=== PATIENT | female | born 1960 | race Caucasian/White ===

== ENCOUNTER 2016-09-06 08:00 | Inpatient (IN) | payer OTHER ==
--- NOTE | ~2016-09-06 | CR144 ---
[facility] A Service of [facility] RADIOLOGY TEXT RESULTS PATIENT: MITCHELL CARMONA LOCATION: [facility] [id number] : [birth year] UNIT #: [id number] AGE: [address]: Abdiaziz Rolle MD SEX: F ORDER DR: [id number] [facility] [address] [place], [place] [address] [id number] I MR#: [id number] Acc #: [id number] NAME: MITCHELL CARMONA : 1960 SEX: F STUDY DATE/TIME: 09/07/2016 16:02 UNIT: [facility] ROOM: [facility] STUDY DESCRIPTION: CR Hip 1 View Lt Attending Physician: Abdiaziz Rolle M.D. Ordering Physician: Abdiaziz Rolle M.D. Primary Care Physician: Vero Pagan M.D. MEDICAL IMAGING REPORT This report is preliminary unless electronic signature is present EXAM Left hip series 09/08/2015 HISTORY Postop total PACU back, postop revision of total left hip. FINDINGS AP radiograph of the left moses pelvis compared to study dated 09/06/2016. Patient has undergone revision of the left total hip replacement. There is an acetabular component now affixed with 3 screws. The acetabular component appears normally aligned and located. The femoral stem component is now located within the acetabular component. Previous dislocation has been reduced. There is air in the operative bed. Surgical skin vinod overlying the operative bed. Ice pack adjacent to the lateral soft tissues. The visualized bony pelvis is grossly intact. Visualized bowel gas pattern normal. Dictated by... John Moser M.D. THIS IS AN ELECTRONICALLY VERIFIED REPORT John Moser M.D. at 09/11/2016 4:18 PM FILOMENA/frances TD: 09/08/2016 07:43 JOB #: [id number] MEDICAL IMAGING REPORT COPY
--- NOTE | ~2016-09-06 | CR63 ---
[facility] A Service of [facility] RADIOLOGY TEXT RESULTS PATIENT: MITCHELL CARMONA LOCATION: [place] [id number] : [birth year] UNIT #: [id number] AGE: [address]: Abdiaziz Rolle MD SEX: F ORDER DR: [id number] [facility] [address] [place], [place] [address] [id number] I MR#: [id number] Acc #: [id number] NAME: MITCHELL CARMONA : 1960 SEX: F STUDY DATE/TIME: 09/06/2016 11:50 UNIT: [facility] ROOM: [facility] STUDY DESCRIPTION: CR Chest 2 View Attending Physician: Abdiaziz Rolle M.D. Ordering Physician: Abdiaziz Rolle M.D. Primary Care Physician: Vero Pagan M.D. MEDICAL IMAGING REPORT This report is preliminary unless electronic signature is present EXAM PA and lateral chest, 09/06/2016 HISTORY Congestion today. FINDINGS 2 views of the chest demonstrate mild cardiac enlargement. Pulmonary vascularity is normal. Mild linear atelectasis or scarring in the left base. No airspace infiltrates or effusions are identified. Mild elevation of the right hemidiaphragm is similar to chest x-ray 02/14/2010. Partly visualized internal fixation right humeral shaft. IMPRESSION No acute findings. Cardiac size near the upper limits of normal. Mild elevation of the right hemidiaphragm. Dictated by... Anmol Moeller M.D. THIS IS AN ELECTRONICALLY VERIFIED REPORT Anmol Moeller M.D. at 09/07/2016 2:15 PM WALLY/angélica TD: 09/07/2016 04:24 JOB #: [id number] MEDICAL IMAGING REPORT COPY
--- NOTE | ~2016-09-06 | EKG ---
PATIENT: MITCHELL CARMONA UNIT #: [id number] Ventricular Rate: 77 BPM Atrial Rate: 77 BPM P-R Interval: 192 ms QRS Duration: 76 ms Q-T Interval: 412 ms QTC Calculation(Bezet): 466 ms P [place]: 51 degrees Calculated R [place]: 25 degrees Calculated T [place]: 12 degrees Diagnosis Line: Normal sinus rhythm Diagnosis Line: Septal infarct , age undetermined Diagnosis Line: Abnormal ECG Diagnosis Line: No previous ECGs available Diagnosis Line: Confirmed by NISHI CEJA MD ([id number]) on Diagnosis Line: 09/08/2016 4:03:11 PM INTERPRETING MD: MARCIAL PALMER
--- NOTE | ~2016-09-06 | CO ---
Unit #: [id number] #: [id number] Patient: MITCHELL CARMONA [id number] [place] [id number] [facility] [place], [place] [address] [id number] I MR#: [id number] NAME: MITCHELL CARMONA ROOM: [facility] Age: 56 Sex: F Admission Date: 09/06/2016 : 1960 Attending Physician: Abdiaziz Rolle M.D. Primary Care Physician: Vero Pagan M.D. CONSULTATION REPORT DICTATING FOR [facility] Cardiology. REASON FOR CONSULTATION Cardiac clearance for left hip revision. HISTORY OF PRESENT ILLNESS This is a pleasant 56-year-old female, who appears much older than her stated age. She reports she was in her normal state of health until yesterday and reports she was at home lying in bed, changing positions, turned on her side and felt her hip pop. She reports this has happened in the past before. She presented initially to [facility] and was diagnosed with a left total hip dislocation. We were asked to see for preop surgical clearance for left total hip revision per Dr. Rolle in the a.m. The patient reports to me she does complain of intermittent episodes of substernal chest pain that occurs with activity as well as deep breathing. She reports that it relieves typically with rest. She also notes intermittent episodes of shortness of breath. She denies any chest pain at present. EKG shows normal sinus rhythm, rate of 77 beats per minute, cannot rule out prior septal infarct. QTc interval is 466 msec. No acute ischemic changes noted. Of note, the patient was admitted and seen approximately in 07/2016 at [facility] for hypertensive crisis. During that hospitalization, she did have a CAMI performed on 07/20/2016, which showed ejection fraction of 60%, moderate concentric LVH, diastolic dysfunction was noted grade 2, moderate pulmonary artery dilation, tktw-qm-lulylidh tricuspid regurgitation, calculated pulmonary systolic pressure of 62 to 67 mmHg, mean pulmonary artery pressure is 52 mmHg. These findings are consistent with severe pulmonary hypertension. I cannot see any previous ischemic workup has been done. The patient does report that she had some done quite sometime ago. At present, she is resting in bed. She is drowsy, but able to answer questions appropriately. Denies any complaints at this time other than left hip pain. PAST MEDICAL HISTORY 1. Hypertension. 2. Hyperlipidemia. 3. COPD, recently started on home O2 2 L. Unit #: [id number] #: [id number] Patient: MITCHELL CARMONA 4. Reformed tobacco abuse, was one pack a day smoker for 40 years. Reports she quit in 04/2016. 5. Reformed alcohol abuse. The patient reports she was alcoholic in the past. 6. Raynaud syndrome. 7. Lupus. 8. Scleroderma. 9. History of subdural hematoma. 10. History of coronary artery disease. We will attempt to obtain records. At present, no records are available for review. HOME MEDICATIONS Tylenol 325 mg one tablet q.4 hours p.r.n., aspirin 81 mg p.o. daily, atorvastatin 80 mg one tablet p.o. daily, bupropion 300 mg one tablet p.o. daily, cetirizine 5 mg p.o. daily, duloxetine 60 mg p.o. daily, furosemide 20 mg p.o. daily, gabapentin 300 mg one capsule b.i.d., melatonin 5 mg one tablet p.o. q.h.s., milk of magnesia p.r.n., nifedipine ER 60 mg one tablet p.o. daily, omeprazole 40 mg one capsule p.o. b.i.d. PAST SURGICAL HISTORY 1. Bilateral hip surgery. 2. Colostomy reversal. 3. Finger surgery. 4. Right arm surgery. 5. Abdominal surgery secondary to perforated diverticulum. SOCIAL HISTORY The patient states she lives with her son. She has been a one pack per day smoker for 40 years. She states she quit in 04/2016. She uses a cane at home for ambulation. She is a reformed alcoholic, last drink being a couple of years ago. FAMILY HISTORY No family history significant for coronary artery disease. ALLERGIES Morphine. REVIEW OF SYSTEMS Positive for numbness and tingling in the feet, pain in legs with ambulation or claudication. The rest was negative except for what was stated in the HPI. PHYSICAL EXAMINATION VITAL SIGNS: Temperature 98, respiratory rate 16 to 20, pulse is 100, blood pressure currently is 171/111. GENERAL: This is a pleasant female, who is much older than her stated age. HEENT: Pupils are equal and round. Head is atraumatic and normocephalic. Mucous membranes are moist. CARDIOVASCULAR: S1, S2. No murmurs, gallops, or rubs. PULMONARY: Lungs are clear. No adventitious breath sounds. No rales, no rhonchi, no wheezes. ABDOMEN: Slightly tender to palpation. Midline incision present from prior surgery. Large, obese, pannus. Positive bowel sounds. EXTREMITIES: Pulses are extremely weak. She has some amputated toes from prior. No clubbing, cyanosis, or edema. NEUROLOGIC: The patient is drowsy, but able to follow commands with ease. Unit #: [id number] #: [id number] Patient: MITCHELL CARMONA She answers questions appropriately and moves all extremities equally. DIAGNOSTIC STUDIES LABORATORY RESULTS: Currently no labs have been resulted. IMAGING STUDIES: Left hip imaging from [facility] shows displacement of the left hip. CARDIOVASCULAR STUDIES: EKG shows normal sinus rhythm. Q-waves are present in the septal leads. Cannot rule out prior septal infarct. Otherwise, no acute ischemic changes noted. QTc interval 466 msec. IMPRESSION 1. Repeating dislocation of the left hip, this was happened in the past. Unable to be popped back in. The patient awaiting total hip revision per Dr. Rolle in the a.m. 2. Hypertension. 3. Chronic obstructive pulmonary disease, recently started on oxygen. 4. Connective tissue disorders, history of lupus and scleroderma. 5. Probable peripheral artery disease. The patient reports intermittent claudication with ambulation and nonpalpable PT and DP pulses. 6. Reformed tobacco abuse, quit approximately in 04/2016. 7. Transesophageal echocardiography performed at [facility] in 07/2016, shows left ventricular ejection fraction of 60%, moderate concentric left ventricular hypertrophy, grade 2 diastolic dysfunction, moderate pulmonary artery dilation, pulmonary systolic pressures of 62 to 67 mmHg, [id number]-[id number]-[id number] tricuspid regurgitation, mean pulmonary artery pressure of 52 mmHg. Findings consistent with severe pulmonary hypertension. 8. Reformed alcohol abuse. The patient reports she was a heavy drinker until approximately one year ago. PLAN The patient has been seen and admitted. She is scheduled for left total hip revision per Dr. Rolle in the a.m. We were asked to see for preop cardiac clearance. Dr. Kumar has seen and evaluated and feels that she is at a ivb-iu-dxxmgksx risk for surgical intervention; however, she does have significant risk factors for coronary artery disease, which include hypertension, hyperlipidemia, reformed tobacco abuse, connective tissue disorders. We will plan on proceeding with ischemic workup evaluation prior to discharge. The patient will most likely need Lexiscan Cardiolite potentially on Wednesday. She will be started on nifedipine 60 mg p.o. now and daily for her blood pressure, which is currently running 170s over 111. She will also be started on metoprolol 25 mg p.o. now and b.i.d., as well as hydrochlorothiazide 25 mg p.o. daily. Please inform Dr. Rolle's office that the patient has been cleared for surgery. Dictated by... Marian Wolfe A.P.R.N. LMW/modl TD: 09/06/2016 18:01 JOB #: [id number] Unit #: [id number] #: [id number] Patient: MITCHELL CARMONA CONSULTATION REPORT X Marian Wolfe APRN X CONSULTATION REPORT
--- NOTE | ~2016-09-06 | HP ---
Unit #: [id number] #: [id number] Patient: MITCHELL CARMONA [id number] [address] [address] [id number] I MR#: [id number] NAME: MITCHELL CARMONA ROOM: [facility] Age: 56 Sex: F Admission Date: 09/06/2016 : 1960 Attending Physician: Abdiaziz Rolle M.D. Primary Care Physician: Vero Pagan M.D. HISTORY AND PHYSICAL REASON FOR ADMISSION Left total hip recurrent dislocation. HISTORY OF PRESENT ILLNESS Ms. Carmona is a pleasant 56-year-old female who presents today with history of multiple left total hip dislocations. Patient was lying in bed on the evening of September 06, 2016. She rolled over and her left hip popped out. She heard a pop. She has weakness on the left lower extremity. She is unable to bear any weight. There is no numbness but positive weakness and instability due to pain. the patient reports that this is the 12th or 13th time it has dislocated. We have talked to her several times about revision surgery but she wanted to hold off with her last dislocation. PAST MEDICAL HISTORY 1. Left total hip dislocations. 2. Hypertension. 3. Coronary artery disease. 4. GERD. 5. Lupus. 6. Scleroderma. 7. Raynaud's disease. 8. Depression. 9. Migraine. 10. Seizures. 11. Subdural hematoma. 12. Alcohol abuse. 13. COPD. 14. Chronic respiratory failure. MEDICATIONS 1. Tylenol. 2. Aspirin. 3. Atorvastatin. 4. Bupropion. 5. Cetirizine. 6. Duloxetine. 7. Furosemide. 8. Gabapentin. 9. Melatonin. 10. Milk of Magnesia. 11. Nifedipine. 12. Omeprazole. ALLERGIES Unit #: [id number] #: [id number] Patient: MITCHELL CARMONA Morphine. PAST SURGICAL HISTORY 1. Colostomy. 2. Finger surgery. 3. Right arm surgery. 4. Bilateral total hip replacements. 5. Multiple left total hip closed reductions. FAMILY HISTORY Insignificant. SOCIAL HISTORY The patient lives at home. She denies any smoking. She is a former smoker and quit in April 2016. She walks with a cane. She denies any alcohol use. She reports her last drink was over a year ago. REVIEW OF SYSTEMS Ten organ systems reviewed. The patient denies any blurry vision, congestion, sore throat, shortness of breath, chest pain, abdominal pain, urinary incontinence, numbness, tingling, skin ulcers, lesions, anxiety, depression. Positive for joint pain. PHYSICAL EXAMINATION GENERAL: No acute distress. Alert and oriented x3. VITAL SIGNS: Temperature 98.2, pulse 98, respirations 16, blood pressure 127/87. HEENT: PERRLA. Nonicteric sclerae. THORAX: Trachea midline. No thyromegaly. CARDIAC: S1, S2. No extra sounds. No murmurs. LUNGS: Clear to auscultation. No rales, rhonchi. ABDOMEN: Nondistended, nontender. Positive bowel sounds. GENITOURINARY: Deferred. MUSCULOSKELETAL: No erythema or ecchymosis. EXTREMITIES: Left lower extremity is shortened and internally rotated. NEUROLOGIC: II-XII intact. SKIN: Skin is cool and dry. PSYCHIATRIC: Good insight. Good judgment. Mood and affect are pleasant. DIAGNOSTIC STUDIES LABORATORY: White count is 13.1, hemoglobin 9.9, hematocrit 31.9, platelets 351,000. INR is 1. Sodium 135, potassium 4.3, chloride 102, bicarbonate 23, BUN 22, creatinine 1, glucose 100. IMAGING: Two views of the left hip ordered and reviewed today in the emergency room and shows a left total hip dislocation. ASSESSMENT Left total hip recurrent dislocation. PLAN I have discussed treatment options with the patient. I have recommended a left total hip revision to be done by Dr. Rolle for the patient's recurrent dislocation. Risks and benefits of the procedure were explained as well as the description of the procedure in its entirety along with any complications. Patient has decided to proceed. Will go ahead and get this scheduled, get the usual preoperative lab work and testing complete, and have the patient medically cleared for surgery. Unit #: [id number] #: [id number] Patient: MITCHELL CARMONA Dictated by Bassem Scott for Verena Camara/tata TD: 09/07/2016 11:38 JOB #: [id number] HISTORY AND PHYSICAL X Keiry Arenas X HISTORY AND PHYSICAL
--- NOTE | ~2016-09-06 | OR ---
Unit #: [id number] #: [id number] Patient: MITCHELL CARMONA [id number] [address] [place], [place] [address] [id number] I MR#: [id number] NAME: MITCHELL CARMONA ROOM: [facility] Date of Procedure: 09/07/2016 Admission Date: 09/06/2016 Surgeon: Abdiaziz Rolle M.D. : 1960 Attending Physician: Abdiaziz Rolle M.D. Primary Care Physician: Vero Pagan M.D. OPERATIVE REPORT PREOPERATIVE DIAGNOSIS Dislocated total hip with acetabular loosening and migration. POSTOPERATIVE DIAGNOSIS Dislocated total hip with acetabular loosening and migration. PROCEDURE PERFORMED Revision of left total hip, acetabulum liner and femoral head. ASSISTANTS Huang and Jagdish. ANESTHESIA General. ESTIMATED BLOOD LOSS About 150 to 200 mL. INDICATIONS FOR PROCEDURE This is a 56-year-old lady, who was admitted to the hospital over the weekend with a dislocated total hip. Her x-rays also showed that her acetabular component had disassociated from the acetabulum and then migrated proximally. She is brought to the operating room today for revision of her left hip. DESCRIPTION OF PROCEDURE The patient was brought to the holding room. She was already on IV scheduled antibiotics. These will be continued postop. The patient then was brought back to the operating room, given a general anesthetic. IV access was poor, so central line was placed by Anesthesia and after this was done, the patient was positioned in the decubitus position with the left side up. The left hip was prepped and draped in a sterile fashion. The previous skin incision was used. Subcu dissected away. The fascia split longitudinally. Clear fluid was encountered. This was cultured and we then carried out the dissection down to the hip joint at this time. The hip was already dislocated. The head was removed from the femoral component, that was a Nohemy component. Once the head had been removed, the femur was retracted anteriorly and superiorly. The cup was removed by hand. The patient then had the acetabulum exposed, scar tissue debrided, was then reamed up to a size 53 and was medialized as much as possible, as the lateral posterolateral rim of the acetabulum was slightly deficient. We then positioned a 54 mm multihole revision cup with Gription from [employer] Unit #: [id number] #: [id number] Patient: MITCHELL CARMONA in 40 degrees of abduction and 20 degrees of forward flexion. There was a fairly solid fit. The three screws were also added to the cup. They were 30, 25, and 35 mm in length and they all had excellent purchase. Trial +4, 10 degree liner was positioned and then the hip was reduced with a the Nohemy femoral head. This was a 14 mm x 36. The hip was reduced and it was stable in all directions. We then opened the real head. The real liner was impacted into the cup. The real head was applied. The hip was reduced and stability was appropriate in all directions. The patient then had the wound irrigated with Betadine and bacitracin and then the ropivacaine mixture was injected, and then the wound was closed using 0 Ethibond in the capsule. The fascia was closed with a running #2 STRATAFIX suture. Subcu was closed with 0 and 2-0 Vicryl and vinod in the skin. magistrate assistant, Marvin Encinas was present throughout the entire case. Dictated by... Verena Camara/adrian TD: 09/07/2016 21:14 JOB #: [id number] OPERATIVE REPORT X Abdiaziz Rolle MD X PROCEDURE OPERATIVE NOTE
--- NOTE | ~2016-09-06 | CR206 ---
[facility] A Service of [facility] RADIOLOGY TEXT RESULTS PATIENT: MITCHELL CARMONA LOCATION: [facility] : [birth year] UNIT #: [id number] AGE: [address]: Abdiaziz Rolle MD SEX: F ORDER DR: [id number] [facility] [address] [facility] [place], [place] [address] [id number] I MR#: [id number] Acc #: [id number] NAME: MITCHELL CARMONA : 1960 SEX: F STUDY DATE/TIME: 09/06/2016 15:30 UNIT: [facility] ROOM: [facility] STUDY DESCRIPTION: CR Pelvis 1 or 2 Views Attending Physician: Abdiaziz Rolle M.D. Ordering Physician: Abdiaziz Rolle M.D. Primary Care Physician: Vero Pagan M.D. MEDICAL IMAGING REPORT This report is preliminary unless electronic signature is present EXAM AP radiograph of the pelvis HISTORY Hip dislocation. Severe pain. Happened last night. Left hip popped out while moving in bed. Preoperative study. FINDINGS AP radiograph of pelvis is presented. Patient is status post bilateral hip arthroplasty. The visualized right hip orthopedic hardware appears normally located and aligned. There is dislocation of the left femoral stem relative to the left acetabular component of hip prosthesis. The left femoral head component is superimposed over the lower left iliac wing immediately superior to the acetabulum. I see no evidence of hardware fracture. No [place] bony fracture is seen. The lumbar spine shows mild degenerative change and mild dextroscoliosis. Visualized bowel gas pattern normal. Dictated by... John Moser M.D. THIS IS AN ELECTRONICALLY VERIFIED REPORT John Moser M.D. at 09/08/2016 5:27 PM FILOMENA/josie TD: 09/07/2016 07:52 JOB #: [id number] MEDICAL IMAGING REPORT [facility] A Service of [facility] RADIOLOGY TEXT RESULTS PATIENT: MITCHELL CARMONA LOCATION: [facility] : [birth year] UNIT #: [id number] AGE: [address]: Abdiaziz Rolle MD SEX: F ORDER DR: DIANA
--- NOTE | ~2016-09-06 | CR71 ---
[facility] A Service of [facility] RADIOLOGY TEXT RESULTS PATIENT: MITCHELL CARMONA LOCATION: [facility] [id number] : [birth year] UNIT #: [id number] AGE: [address]: Abdiaziz Rolle MD SEX: F ORDER DR: [id number] [facility] [address] [facility] [place], [place] [address] [id number] I MR#: [id number] Acc #: [id number] NAME: MITCHELL CARMONA : 1960 SEX: F STUDY DATE/TIME: 09/07/2016 16:01 UNIT[facility] ROOM: [facility] STUDY DESCRIPTION: CR Chest Single View Attending Physician: Abdiaziz Rolle M.D. Ordering Physician: Abdiaziz Rolle M.D. Primary Care Physician: Vero Pagan M.D. MEDICAL IMAGING REPORT This report is preliminary unless electronic signature is present EXAM AP radiograph chest 09/07/2016 HISTORY postop revision of total left hip. Short of air. FINDINGS AP radiograph of the chest is presented. Comparison 09/06/2016 at 11:50 hours. Right internal jugular central venous catheter terminates in superior vena cava. Stable cardiac enlargement. Tortuous descending thoracic aorta stable given obliquity. No acute appearing bony abnormality. Partial visualization of prior open reduction and internal fixation right humerus. The lungs are well inflated. Compared to yesterday's examination there is a subtle increase in central vascular prominence and linear interstitial densities which may be a reflection of mild vascular congestion and minimal interstitial edema. Band-like density left retrocardiac region favored to be atelectatic in nature. No pleural effusion or pneumothorax. No suspicious nodule. Short interval follow up to resolution of above findings recommended. Dictated by... John Moser M.D. THIS IS AN ELECTRONICALLY VERIFIED REPORT John Moser M.D. at 09/08/2016 5:22 PM [place] TD: 09/08/2016 07:26 JOB #: [id number] MEDICAL IMAGING REPORT [facility] A Service of [facility] RADIOLOGY TEXT RESULTS PATIENT: MITCHELL CARMONA LOCATION: [place] [address] : [birth year] UNIT #: [id number] AGE: [address]: Abdiaziz Rolle MD SEX: F ORDER DR: COPY
--- NOTE | ~2016-09-06 | DS ---
Unit #: [id number] #: [id number] Patient: MITCHELL CARMONA [id number] [facility] [place], [place] [address] [id number] I MR#: [id number] NAME: MITCHELL CARMONA ROOM: [facility] Age: 56 Sex: F Admission Date: 09/06/2016 : 1960 Discharge Date: 09/10/2016 Attending Physician: Abdiaziz Rolle M.D. Primary Care Physician: Vero Pagan M.D. DISCHARGE SUMMARY ADMITTING DIAGNOSIS Dislocated left total hip with loose acetabular component. DISCHARGE DIAGNOSIS Dislocated left total hip with loose acetabular component. PROCEDURES IN THE HOSPITAL Revision left total hip. HOSPITAL COURSE The patient was admitted on the above date, taken to the operating room on the where she underwent revision left total hip. Postoperatively, she has done fairly well. She is ambulating short distances with a walker. She is to be 50% weightbearing. She has been on Coumadin for DVT prophylaxis. Her INR today is 2. Her hemoglobin today is 9. The patient did require transfusion postoperatively. Her vinod are in place. She prefers to be discharged home. She will have home health through [facility], and will have [facility] drawn on Wednesday and of next week and her Coumadin dosage adjusted appropriately. Her vinod will be removed 2 weeks postop. DISCHARGE MEDICATIONS Her medications on discharge include her Coumadin 7.5 mg daily and her pain medicine. FOLLOW-UP The patient will follow up in the office in approximately 4-5 weeks. DISCHARGE INSTRUCTIONS She has been instructed in dislocation precautions. CONDITION Her condition on discharge is improved. DISPOSITION Her disposition is to home. Dictated by... Verena Camara/willis Unit #: [id number] #: [id number] Patient: MITCHELL CARMONA TD: 09/10/2016 08:17 JOB #: [id number] DISCHARGE SUMMARY X Abdiaziz Rolle MD X DISCHARGE SUMMARY
--- NOTE | ~2016-09-06 | HP ---
Unit #: [id number] #: [id number] Patient: MITCHELL CARMONA [id number] [facility]. [place], [place] [address] [id number] I MR#: [id number] NAME: MITCHELL CARMONA ROOM: [facility] Age: 56 Sex: F Admission Date: 09/06/2016 : 1960 Attending Physician: Abdiaziz Rolle M.D. Primary Care Physician: Vero Pagan M.D. HISTORY AND PHYSICAL REASON FOR CONSULTATION Clearance for revision total hip. HISTORY OF PRESENT ILLNESS The patient is a 56-year-old female with a past medical history of hypertension, coronary artery disease, GERD, lupus, scleroderma, Raynaud phenomenon, depression, migraine headaches, seizures, subdural hematoma, alcohol abuse, COPD, chronic respiratory failure who was admitted by Dr. Rolle for the above. The patient states that she was in her usual state of health until the evening prior to admission when she like dislocated her hip. She states that she rolled over in bed and her hip "popped." This has happened to her multiple times in the past. She presented to [facility] emergency department for further evaluation. Left hip x-ray showed left femoral component dislocated posteriorly superior and laterally related to the left acetabular component of the left hip prosthesis. The patient was transferred to [facility] for further evaluation. PAST MEDICAL HISTORY 1. Admission to [facility] for hip issue within the past one to two years. 2. Admission to [facility] 08/03/2010 for left total hip dislocation. 3. Hypertension. 4. 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 5. GERD. 6. Lupus. 7. Scleroderma. 8. Raynaud Phenomenon. 9. Depression. 10. Migraine headaches. 11. History of seizure. 12. History of subdural hematoma. 13. History of alcohol abuse. 14. COPD. 15. Chronic respiratory failure. The patient is on 2 L of oxygen per nasal cannula continuous. PAST SURGICAL HISTORY 1. Colostomy in reversal. 2. Finger surgery. 3. Right arm surgery. 4. Bilateral hip surgery. Unit #: [id number] #: [id number] Patient: MITCHELL CARMONA SOCIAL HISTORY The patient lives with her son. She quit smoking in 04/2016. She walks with a cane. She is a recovering alcoholic with her last drink being more than a year ago. FAMILY HISTORY Notable for her dad having "borderline" diabetes. ALLERGIES Morphine. HOME MEDICATIONS Tylenol, aspirin, atorvastatin, bupropion, cetirizine, duloxetine, furosemide, gabapentin, melatonin, milk of magnesia, nifedipine, omeprazole. REVIEW OF SYSTEMS A complete review of systems is negative except as indicated in HPI. PHYSICAL EXAMINATION VITAL SIGNS: Temperature is 98, pulse 73, respirations 16, blood pressure 171/111, oxygen saturation is 95% on 2 L. GENERAL: The patient is a female who is sleeping but wakes to voice. HEENT: The head is atraumatic. Mucous membranes are moist. NECK: Supple. Trachea is midline. CARDIOVASCULAR: Regular rate and rhythm. LUNGS: Clear to auscultation bilaterally with no increased work of breathing. ABDOMEN: Soft, nontender with bowel sounds present in all four quadrants. EXTREMITIES: The left hip is tender to palpation and has decrease range of motion secondary to pain. Sensation is intact. She does have a 2+ dorsalis pedis pulse. NEUROLOGIC: The patient is oriented x3. She follows commands. PSYCH: Mood and affect are normal. Patient is cooperative. Skin of examined areas is warm and dry. DIAGNOSTIC STUDIES IMAGING STUDIES: Left hip x-ray shows left hip prosthesis dislocation with no acute fracture. ASSESSMENT The patient is a 56-year-old female with: 1. Left total hip dislocation. Dr. Rolle plans to do surgery in the morning. The patient's revised Cantrell cardiac risk index is consistent with at least a 1% read of cardiac , nonfatal myocardial infarction, nonfatal cardiac arrest based on history of coronary artery disease. Labs are currently pending. She is also high risk from a pulmonary standpoint due to chronic respiratory failure and COPD. 2. Hypertension. 3. History of coronary artery disease. 4. GERD. 5. Lupus. 6. Scleroderma. 7. Raynaud phenomenon. 8. Depression. 9. Migraine headaches. Unit #: [id number] #: [id number] Patient: MITCHELL CARMONA 10. History of seizure. 11. History of subdural hematoma. 12. History of alcohol abuse with last drink being more than a year ago. 13. Former smoker. 14. COPD. 15. Chronic respiratory failure on 2 L of oxygen per nasal cannula continuous. PLAN I have ordered preoperative labs including CBC, comprehensive metabolic panel, INR, urinalysis. Will also check chest x-ray and EKG. I have consulted Dr. Jordan for cardiac clearance due to the patient's history of coronary artery disease. I have also consulted Dr. Johnson due to the patient's chronic respiratory failure and COPD. Thank you very much for the consultation. We will follow the patient along closely with you. Dictated by Peggy Dalton M.D. Ryan TD: 09/06/2016 12:46 JOB #: [id number] HISTORY AND PHYSICAL X Peggy Dalton MD HISTORY AND PHYSICAL
--- NOTE | ~2016-09-06 | CO ---
Unit #: [id number] #: [id number] Patient: MITCHELL CARMONA [id number] [place], [place] [address] [id number] I MR#: [id number] NAME: MITCHELL CARMONA ROOM: [facility] Age: 56 Sex: F Admission Date: 09/06/2016 : 1960 Attending Physician: Abdiaziz Rolle M.D. Primary Care Physician: Vero Pagan M.D. Consultation Date: 09/06/2016 CONSULTATION REPORT REASON FOR CONSULT Preop clearance. HISTORY OF PRESENT ILLNESS This is a pleasant 56-year-old female with a past medical history significant for hypertension, coronary artery disease, GERD, lupus and scleroderma who presented to the emergency room with left femoral fracture. The patient stated that she is chronically on oxygen. She smoked extensively for a long time but she quit a year ago. The patient noted that recently she had some upper respiratory infection that that hit her sinuses and now they are draining into her lungs. She is feeling more dyspneic and short of breath. She is coughing but no real sputum production. The patient doesn't take any inhalers at home and she doesn't see any manager quality compliance. REVIEW OF SYSTEMS Twelve point review of systems were obtained and were negative except for what was mentioned in the HPI. PAST MEDICAL HISTORY 1. Hypertension. 2. Coronary artery disease. 3. GERD. 4. Lupus. 5. Scleroderma. 6. Raynaud phenomenon. 7. Depression. 8. Seizure. 9. Subdural hematoma. 10. Alcohol abuse. 11. COPD. 12. Chronic hypoxic respiratory failure. PAST SURGICAL HISTORY 1. Colectomy. 2. Finger surgery. 3. Right arm surgery. 4. Bilateral hip surgery. SOCIAL HISTORY The patient lives with her son. She quit smoking in April 2016. She is an alcoholic and last drink was done a year ago. Unit #: [id number] #: [id number] Patient: MITCHELL CARMONA FAMILY HISTORY Diabetes. HOME MEDICATIONS 1. Aspirin. 2. Furosemide. 3. Neurontin. 4. Melatonin. 5. Nifedipine. 6. Omeprazole. REVIEW OF SYSTEMS Twelve point review of systems were obtained and were negative except for what was mentioned in the HPI. PHYSICAL EXAMINATION GENERAL: The patient isn't in acute distress. HEENT: Atraumatic, normocephalic. PERRLA, EOMI. NECK: Supple. No JVD, no lymphadenopathy. CHEST: Bilateral, diffuse crackles and wheezing. HEART: S1, S2. No murmur, gallops or rubs. ABDOMEN: Soft, nontender. Bowel sounds positive. No hepatosplenomegaly. EXTREMITIES: No edema or cyanosis. SKIN: No rashes. DIAGNOSTIC STUDIES IMAGING: Chest x-ray is noted and reviewed by me with no acute infiltrate. ASSESSMENT 1. Chronic hypoxic respiratory failure. 2. Acute exacerbation of chronic obstructive pulmonary disease. 3. Hypertension. 4. Hyperlipidemia. 5. Lupus. 6. Scleroderma. 7. Depression. PLAN 1. The patient is at moderate risk of pulmonary complication including pneumonia needing for vent support to (1) his chest pain if possible. 2. The patient will be started on IV antibiotics, IV steroids and bronchodilator. 3. Lasix as needed. 4. Patient needs aggressive pulmonary toilet so I will add incentive spirometer, physical therapy and bronchodilator. Dictated by... Inge Galdamez M.D. EA/ismael Unit #: [id number] #: [id number] Patient: MITCHELL CARMONA TD: 09/07/2016 06:53 JOB #: [id number] CONSULTATION REPORT X INGE PONCE MD CONSULTATION REPORT
--- NOTE | ~2016-09-06 | EKG ---
PATIENT: MITCHELL CARMONA UNIT #: [id number] Ventricular Rate: 55 BPM Atrial Rate: 55 BPM P-R Interval: 206 ms QRS Duration: 80 ms Q-T Interval: 470 ms QTC Calculation(Bezet): 449 ms P [place]: 31 degrees Calculated R [place]: 25 degrees Calculated T [place]: 3 degrees Diagnosis Line: Sinus bradycardia Diagnosis Line: Low voltage QRS Diagnosis Line: T wave abnormality, consider anterior ischemia Diagnosis Line: Borderline ECG Diagnosis Line: When compared with ECG of 06-SEP-2016 13:01, Diagnosis Line: (unconfirmed) Diagnosis Line: Criteria for Septal infarct are no longer Present Diagnosis Line: Nonspecific T wave abnormality, improved in Diagnosis Line: Inferior leads Diagnosis Line: Confirmed by DEX FLORES MD ([id number]) on 09/09/2016 Diagnosis Line: 7:14:42 AM INTERPRETING MD: SANDRA PALMER
[~2016-09-06 08:00] MED LIST: ASPIRIN PO; CALCIUM 500 + D1 TAB PO; CYMBALTA PO; HYDROCODONE-APA1 T51 PO; HYDROCODONE-APA1 T57 PO; IBUPROFEN PO; LASIX PO; NEURONTIN PO; NEURONTIN600 MG PO; NEURONTIN800 MG PO; NEXIUM PO; PLAQUENIL200 MG PO; PLETAL50 MG PO; PREDNISONE10 MG PO; PREDNISONE5 M1 PO; PROCARDIA XL PO; PROCARDIA10 MG PO; TOPAMAX PO; TOPAMAX50 MG PO
[2016-09-06] MEDS ORDERED: BUPROPION XL300 M1 (14:57)
[2016-09-06] MEDS ORDERED: OMEPRAZOLE40 M1 PO (14:57)
[2016-09-06] MEDS ORDERED: BUPROPION XL300 M1 PO (14:58)
[2016-09-06] MEDS ORDERED: NIFEDIPINE ER60 M1 PO (15:10)
[2016-09-06] MEDS ORDERED: ASPIRIN81 MG PO (15:11)
[2016-09-06] MEDS ORDERED: ZYRTEC5 M2 PO (15:11)
[2016-09-06] MEDS ORDERED: LASIX20 MG PO ×2 (15:12→15:13)
[2016-09-06] MEDS ORDERED: DULOXETINE HCL60 MG PO (15:12)
[2016-09-06] MEDS ORDERED: NEURONTIN300 MG PO (15:13)
[2016-09-06] MEDS ORDERED: MELATONIN5 M1 PO (15:14)
[2016-09-06] MEDS ORDERED: LIPITOR80 MG PO (15:15)
[2016-09-06] MEDS ORDERED: MILK OF MAGNESIA PO (15:16)
[2016-09-06] MEDS ORDERED: BISACODYL10 MG/SUPP PR (15:18)
[2016-09-06 19:03] LABS: URINE APPEARANCE SL CLOUDY; URINE BILIRUBIN NEG (NEG); URINE BLOOD 2+ (NEG); URINE COLOR YELLOW; URINE GLUCOSE NORM (NORM); URINE KETONE NEG (NEG); URINE LEUKOCYTE ESTERASE 3+ (NEG); URINE NITRATE NEG (NEG); URINE PROTEIN 1+ (NEG); URINE SPECIFIC GRAVITY 1.015 (1.003-1.035); URINE UROBILINOGEN NORM (NORM)
[2016-09-06 19:10] LABS: UWBCS1 AUWI INNUM (0-5)
[2016-09-06 20:03] LABS: BASOPHIL% 0.5 % (0-2.5); EOSINOPHIL# 0.2 X10e3 (0-0.7); EOSINOPHIL% 2.1 % (0.0-7.0); HEMATOCRIT 31.5 % (35.0-45.0); HEMOGLOBIN 9.4 gm/dL (12.0-16.0); LYMPHOCYTE% 10.1 % (17.0-45.0); MEAN CELL VOLUME 85.8 FL (83-96); MEAN CORPUSCULAR HEMOGLOBIN 25.7 PG (28-34); MEAN CORPUSCULAR HGB CONC 29.9 g/dL (30-36); MEAN PLATELET VOLUME 7.2 FL (6.5-11.5); MONOCYTE# 0.5 X10e3 (0-1.0); MONOCYTE% 5.5 % (3.0-12.0); NEUTROPHIL# 7.9 X10e3 (1.5-7.1); NEUTROPHIL% 81.8 % (40-75); PLATELET COUNT 275 X10e3 (140-420); RED BLOOD COUNT 3.68 X10e (3.90-5.30); RED CELL DISTRIBUTION WIDTH 21.5 % (11.0-15.5); WHITE BLOOD COUNT 9.6 X10e3 (4.0-10.5)
[2016-09-06 20:04] LABS: DIFF IND NO
[2016-09-06 20:07] LABS: PROTHROMBIN TIME (PATIENT) 10.7 SECONDS (9.6-11.5)
[2016-09-06 20:19] LABS: ALBUMIN SERUM 3.2 g/dL (3.5-5.0); ALKALINE PHOSPHATASE 274 U/L (32-92); ALT (SGPT) 26 U/L (10-40); AST (SGOT) 35 U/L (10-42); BILIRUBIN,TOTAL 0.6 mg/dL (0.2-2.0); BLOOD UREA NITROGEN 21 mg/dL (9-23); CALCIUM SERUM 8.6 mg/dL (8.4-10.2); CARBON DIOXIDE 23 mmol/L (22-31); CHLORIDE 105 mmol/L (100-111); GLOM FILT RATE Estimated ABOVE60 mL/min (>60); GLUCOSE FASTING 82 mg/dL (70-110); PROTEIN TOTAL SERUM 8.4 g/dL (6.0-8.3); SODIUM 133 mmol/L (135-145)
[2016-09-07 06:05] LABS: PARTIAL THROMBOPLASTIN TIME 26.8 SECONDS (23.5-31.3); PROTHROMBIN TIME (PATIENT) 10.7 SECONDS (9.6-11.5)
[2016-09-07 06:25] LABS: ALBUMIN SERUM 3.4 g/dL (3.5-5.0); BILIRUBIN,TOTAL 0.6 mg/dL (0.2-2.0); CALCIUM SERUM 9.3 mg/dL (8.4-10.2); CREATININE SERUM 1.1 mg/dL (0.6-1.4); POTASSIUM 4.3 mmol/L (3.5-5.1); PROTEIN TOTAL SERUM 8.8 g/dL (6.0-8.3)
[2016-09-07 07:27] LABS: BASOPHIL% 0.2 % (0-2.5); EOSINOPHIL% 0.1 % (0.0-7.0); HEMATOCRIT 31.9 % (35.0-45.0); HEMOGLOBIN 9.9 gm/dL (12.0-16.0); LYMPHOCYTE# 0.4 X10e3 (1.0-3.5); LYMPHOCYTE% 3.1 % (17.0-45.0); MEAN CELL VOLUME 83.4 FL (83-96); MEAN CORPUSCULAR HEMOGLOBIN 25.7 PG (28-34); MEAN CORPUSCULAR HGB CONC 30.9 g/dL (30-36); MEAN PLATELET VOLUME 7.5 FL (6.5-11.5); MONOCYTE# 0.1 X10e3 (0-1.0); NEUTROPHIL# 12.5 X10e3 (1.5-7.1); NEUTROPHIL% 95.6 % (40-75); PLATELET COUNT 351 X10e3 (140-420); RED BLOOD COUNT 3.83 X10e (3.90-5.30); RED CELL DISTRIBUTION WIDTH 21.2 % (11.0-15.5); WHITE BLOOD COUNT 13.1 X10e3 (4.0-10.5)
[2016-09-07 07:34] LABS: DIFF IND NO
[2016-09-07 18:45] LABS: PROTHROMBIN TIME (PATIENT) 10.9 SECONDS (9.6-11.5)
[2016-09-08 03:54] LABS: PROTHROMBIN TIME (PATIENT) 10.8 SECONDS (9.6-11.5)
[2016-09-08 03:58] LABS: HEMOGLOBIN 7.2 gm/dL (12.0-16.0)
[2016-09-08 11:48] LABS: BUN/CREATININE RATIO 26.92; CALCIUM SERUM 8.3 mg/dL (8.4-10.2); CREATININE SERUM 1.3 mg/dL (0.6-1.4); GLOM FILT RATE Estimated 45.4 mL/min (>60); MAGNESIUM 1.7 mg/dL (1.6-3.0); POTASSIUM 4.4 mmol/L (3.5-5.1)
[2016-09-09 05:49] LABS: BASOPHIL% 0.1 % (0-2.5); HEMATOCRIT 26.6 % (35.0-45.0); HEMOGLOBIN 8.7 gm/dL (12.0-16.0); LYMPHOCYTE# 0.3 X10e3 (1.0-3.5); LYMPHOCYTE% 2.1 % (17.0-45.0); MEAN CORPUSCULAR HEMOGLOBIN 27.6 PG (28-34); MEAN CORPUSCULAR HGB CONC 32.8 g/dL (30-36); MEAN PLATELET VOLUME 7.3 FL (6.5-11.5); MONOCYTE# 0.6 X10e3 (0-1.0); MONOCYTE% 4.3 % (3.0-12.0); NEUTROPHIL# 13.9 X10e3 (1.5-7.1); NEUTROPHIL% 93.5 % (40-75); PLATELET COUNT 322 X10e3 (140-420); RED BLOOD COUNT 3.16 X10e (3.90-5.30); RED CELL DISTRIBUTION WIDTH 21.1 % (11.0-15.5); WHITE BLOOD COUNT 14.9 X10e3 (4.0-10.5)
[2016-09-09 05:57] LABS: DIFF IND NO; INR 1.3; PROTHROMBIN TIME (PATIENT) 13.6 SECONDS (9.6-11.5)
[2016-09-09 06:39] LABS: BUN/CREATININE RATIO 33.33; CALCIUM SERUM 8.7 mg/dL (8.4-10.2); CREATININE SERUM 1.2 mg/dL (0.6-1.4); GLOM FILT RATE Estimated 49.8 mL/min (>60); MAGNESIUM 1.8 mg/dL (1.6-3.0); POTASSIUM 4.8 mmol/L (3.5-5.1)
[2016-09-10 03:10] LABS: HEMATOCRIT 28.8 % (35.0-45.0); MEAN CELL VOLUME 83.7 FL (83-96); MEAN CORPUSCULAR HEMOGLOBIN 26.1 PG (28-34); MEAN CORPUSCULAR HGB CONC 31.2 g/dL (30-36); MEAN PLATELET VOLUME 7.1 FL (6.5-11.5); RED BLOOD COUNT 3.44 X10e (3.90-5.30); RED CELL DISTRIBUTION WIDTH 21.2 % (11.0-15.5); WHITE BLOOD COUNT 17.5 X10e3 (4.0-10.5)
[2016-09-10 03:27] LABS: PROTHROMBIN TIME (PATIENT) 21.4 SECONDS (9.6-11.5)
[2016-09-10] MEDS ORDERED: COMBIVENT U/D3 M2 INH (15:44)
[2016-09-10] MEDS ORDERED: LOPRESSOR PO (15:52)
[2016-09-10] MEDS ORDERED: MILK OF MAGNESIA PO (15:55)
[2016-09-10] MEDS ORDERED: HYDROCHLOROTHIA25 MG PO (15:57)
[2016-09-10] MEDS ORDERED: GUAIFENESIN LA600 M1 PO (16:00)
[2016-09-10] MEDS ORDERED: LORTAB 10-3251 EACH PO (16:03)
[2016-09-10] MEDS ORDERED: KEFLEX250 M1 PO (16:05)
[2016-09-10] MEDS ORDERED: PREDNISONE PO (16:06)
[2016-09-10] MEDS ORDERED: BUPROPION XL300 MG PO (16:08)
[2016-09-10] MEDS ORDERED: COUMADIN7.5 MG PO (16:10)
== END 2016-09-10 19:37 | disposition home or self-care (01) | DRG 467 ==
LOC: C4C 08:00
PROVIDERS: Family Medicine; Nurse Practitioner; Orthopaedic Surgery; Physician Assistant
PROC: 0SPB09Z Removal of Liner from Left Hip Joint, Open Approach (ICD-10-PCS; 2016-09-07)
PROC: 0SUE09Z Supplement Left Hip Joint, Acetabular Surface with Liner, Open Approach (ICD-10-PCS; 2016-09-07)
PROC: 0SPS0JZ Removal of Synthetic Substitute from Left Hip Joint, Femoral Surface, Open Approach (ICD-10-PCS; 2016-09-07)
PROC: 0SRS0JZ Replacement of Left Hip Joint, Femoral Surface with Synthetic Substitute, Open Approach (ICD-10-PCS; principal; 2016-09-07 12:00)
PROC: 30233N1 Transfusion of Nonautologous Red Blood Cells into Peripheral Vein, Percutaneous Approach (ICD-10-PCS; 2016-09-08)
DX: T84.021A Dislocation of internal left hip prosthesis, initial encounter (principal); D62 Acute posthemorrhagic anemia; J96.11 Chronic respiratory failure with hypoxia; I27.2 Other secondary pulmonary hypertension; J44.1 Chronic obstructive pulmonary disease with (acute) exacerbation; N39.0 Urinary tract infection, site not specified; Y79.2 Prosthetic and other implants, materials and accessory orthopedic devices associated with adverse incidents; Y92.003 Bedroom of unspecified non-institutional (private) residence as the place of occurrence of the external cause; B96.4 Proteus (mirabilis) (morganii) as the cause of diseases classified elsewhere; Z87.891 Personal history of nicotine dependence; Z96.643 Presence of artificial hip joint, bilateral; Z99.81 Dependence on supplemental oxygen; M32.9 Systemic lupus erythematosus, unspecified; I25.10 Atherosclerotic heart disease of native coronary artery without angina pectoris; I10 Essential (primary) hypertension; K21.9 Gastro-esophageal reflux disease without esophagitis; F32.9 Major depressive disorder, single episode, unspecified; M34.9 Systemic sclerosis, unspecified; I73.00 Raynaud's syndrome without gangrene; E78.5 Hyperlipidemia, unspecified; I73.9 Peripheral vascular disease, unspecified; Z88.5 Allergy status to narcotic agent
CPT/HCPCS: 71010; 71020; 72170; 73501; 80048; 80053; 81003; 82947; 83735; 84484; 85014; 85018; 85025; 85027; 85610; 85730; 86850; 86870; 86885; 86900; 86901; 86905; 86922; 87040; 87070; 87075; 87086; 87088; 87186; 87205; 93005; 94640; 94760; 97110; 97116; 97163; 97530; 97535; C1713; C1776; G8978-GP; G8979-GP; J0131; J0171; J0690; J0696; J0735; J1100; J1170; J1650; J1720; J1885; J2250; J2405; J2710; J2795; J2920; J3010; P9016

== ENCOUNTER 2016-09-10 21:28 | Inpatient (IN) | payer OTHER ==
--- NOTE | ~2016-09-10 | CR72 ---
[facility] A Service of [facility] RADIOLOGY TEXT RESULTS PATIENT: MITCHELL CARMONA LOCATION: [address] : [birth year] UNIT #: [id number] AGE: [address]: NESSA GALDAMEZ MD SEX: F ORDER DR: [id number] [facility]. [place], [place] [address] [id number] I MR#: [id number] Acc #: [id number] NAME: MITCHELL CARMONA : 1960 SEX: F STUDY DATE/TIME: 09/16/2016 3:53 UNIT: [facility] ROOM: [facility] ST[facility]Y DESCRIPTION: CR Chest Single View Portable Attending Physician: Nessa Galdamez M.D. Ordering Physician: Marcelina Jonhson M.D. Primary Care Physician: Vero Pagan M.D. MEDICAL IMAGING REPORT This report is preliminary unless electronic signature is present EXAM AP portable chest Date: 09/16/2016 HISTORY Fever, cerebritis, respiratory failure. Symptoms began 09/10/2016. Found down. Left hip revision 09/10/2016. COMPARISON AP portable chest 09/15/2016. FINDINGS Retrocardiac left lower lobe atelectasis or infiltrate persists with small layering left pleural effusion. Right lung appears relatively clear with only minimal infiltrate suspected in the right base. Heart size is enlarged but stable. ET tube, NG tube and right arm approach PICC appear unchanged. No visible pneumothorax. IMPRESSION Persistent left lower lobe retrocardiac consolidation or atelectasis or small left pleural effusion. No significant change compared 09/15/2016. Dictated by... Ivania Villagomez M.D. THIS IS AN ELECTRONICALLY VERIFIED REPORT Ivania Villagomez M.D. at 09/16/2016 10:25 PM KLEVER/aaliyah TD: 09/16/2016 12:27 JOB #: [id number] MEDICAL IMAGING REPORT [facility] A Service of [facility] RADIOLOGY TEXT RESULTS PATIENT: MITCHELL CARMONA [address] [birth year] UNIT #: [id number] AGE: [address]: NESSA GALDAMEZ MD SEX: F ORDER DR: COPY
--- NOTE | ~2016-09-10 | EKG ---
PATIENT: MITCHELL CARMONA UNIT #: [id number] Ventricular Rate: 88 BPM Atrial Rate: 88 BPM P-R Interval: 216 ms QRS Duration: 90 ms Q-T Interval: 408 ms QTC Calculation(Bezet): 493 ms P [place]: 45 degrees Calculated R [place]: 48 degrees Calculated T [place]: 23 degrees Diagnosis Line: Sinus rhythm with sinus arrhythmia with 1st degree Diagnosis Line: A-V block Diagnosis Line: Low voltage QRS Diagnosis Line: Nonspecific T wave abnormality Diagnosis Line: Prolonged QT Diagnosis Line: Abnormal ECG Diagnosis Line: When compared with ECG of 10-SEP-2016 21:36, Diagnosis Line: (unconfirmed) Diagnosis Line: TX interval has increased Diagnosis Line: Nonspecific T wave abnormality, worse in Anterior Diagnosis Line: leads Diagnosis Line: Confirmed by AMMON GODINEZ MD ([id number]) on Diagnosis Line: 09/14/2016 12:03:18 AM INTERPRETING MD: HERBERT PALMER
--- NOTE | ~2016-09-10 | CT17 ---
[facility] A Service of [facility] RADIOLOGY TEXT RESULTS PATIENT: MITCHELL CARMONA LOCATION: [address] : [birth year] UNIT #: [id number] AGE: [address]: Elmer Chacon MD SEX: F ORDER DR: [id number] [facility] [address] [place], [place] [address] [id number] I MR#: [id number] Acc #: [id number] NAME: MITCHELL CARMONA : 1960 SEX: F STUDY DATE/TIME: 09/10/2016 20:07 UNIT: [facility] ROOM: [facility] STUDY DESCRIPTION: CT Angio Head Attending Physician: Cheyenne Andre M.D. Ordering Physician: Gilson Forrester D.O. Primary Care Physician: Vero Pagan M.D. MEDICAL IMAGING REPORT This report is preliminary unless electronic signature is present EXAM Head and neck CTA 09/10/2016 at 20:21 hours. INDICATIONS Syncope and left side weakness today. Stroke. History of lupus. TECHNIQUE Axial images were obtained through the head and neck following IV contrast administration. 3-D reformatted images were obtained. This CT exam was performed with one or more of the following radiation dose reduction techniques: automatic exposure control, adjustment of mA and/or kV according to patient size, and iterative reconstruction. COMPARISON Comparison made with head CT from the same day. FINDINGS There is some motion artifact on the exam. The patient's upper esophagus is distended with fluid and debris, compatible with gastroesophageal reflux. There is a small left pleural effusion. There is dilatation of the right main pulmonary artery at 3.3 cm. The left pulmonary artery is dilated to about 3 cm. Findings are compatible with pulmonary arterial hypertension. There is emphysema. There is left supraclavicular adenopathy. 1 of the lymph nodes measures about 2.0 x 1 cm. Consider nonemergent followup with chest CT. There is degenerative disease in the cervical spine. There is acute left maxillary sinusitis. There is generalized atrophy in the brain. In the neck, there is medial deviation of both common carotid arteries at the level of the larynx. There is no evidence of carotid or vertebral stenosis in the neck by NASCET criteria. No plaque disease is seen. Branching pattern from the aortic arch is normal. Vertebral arteries are STS. [facility] A Service of [facility] RADIOLOGY TEXT RESULTS PATIENT: MITCHELL CARMONA LOCATION: [address] : [birth year] UNIT #: [id number] AGE: [address]: Elmer Chacon MD SEX: F ORDER DR: codominant. Intracranially, vertebral basilar system appears normal. There is a origin right CARD GRINDER. 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 No intracranial aneurysm is seen. No vascular malformation is seen. The major dural venous sinuses are patent. IMPRESSION 1. No evidence of carotid vertebral stenosis in the neck by NASCET criteria. No plaque disease or dissection. 2. 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 There is no intracranial aneurysm or vascular malformation. No vessel cutoff is seen. There is a origin right CARD GRINDER. 3. Left maxillary sinusitis. 4. Gastroesophageal reflux. 5. Small left effusion with pulmonary emphysema. 6. Pulmonary arterial hypertension. 7. Left supraclavicular adenopathy of unknown significance. Consider nonemergent chest CT for follow up. Dictated by... Adrián Canales Jr., M.D. THIS IS AN ELECTRONICALLY VERIFIED REPORT Adrián Canales Jr., M.D. at 09/11/2016 12:37 PM SHAKIR/peter TD: 09/11/2016 08:54 JOB #: [id number] MEDICAL IMAGING REPORT COPY
--- NOTE | ~2016-09-10 | US140 ---
[facility] A Service of [facility] RADIOLOGY TEXT RESULTS PATIENT: MITCHELL CARMONA LOCATION: [facility] 332-01 : [birth year] UNIT #: [id number] AGE: [address]: Carissa Donald MD SEX: F ORDER DR: [id number] [facility] [address] [place], [place] [address] [id number] I MR#: [id number] Acc #: [id number] NAME: MITCHELL CARMONA : 1960 SEX: F STUDY DATE/TIME: 09/23/2016 13:48 UNIT: [address] ROOM: [facility] STUDY DESCRIPTION: US UE Veins Unilat or Ltd Stdy Attending Physician: Carissa Donald M.D. Ordering Physician: Wen Chacon A.P.R.N. Primary Care Physician: Vero Pagan M.D. MEDICAL IMAGING REPORT This report is preliminary unless electronic signature is present EXAM Left upper extremity venous Doppler 09/23/2016 INDICATIONS Left arm swelling for the last 2 days. Patient on a blood thinner. FINDINGS Kinney-scale, color flow, and spectral Doppler waveform analysis was performed of the left upper extremity venous system. All the venous structures demonstrate normal color flow and compressibility where applicable. No superficial or deep venous thrombosis is identified. IMPRESSION Negative left upper extremity venous Doppler. Dictated by... Adrián Canales Jr., M.D. THIS IS AN ELECTRONICALLY VERIFIED REPORT Adrián Canales Jr., M.D. at 09/24/2016 8:10 AM Ginger TD: 09/23/2016 18:19 JOB #: [id number] MEDICAL IMAGING REPORT Page 1 of 1 COPY
--- NOTE | ~2016-09-10 | EKG ---
PATIENT: MITCHELL CARMONA UNIT #: [id number] Ventricular Rate: 84 BPM Atrial Rate: 84 BPM P-R Interval: 184 ms QRS Duration: 92 ms Q-T Interval: 428 ms QTC Calculation(Bezet): 505 ms P [place]: 49 degrees Calculated R [place]: 50 degrees Calculated T [place]: 8 degrees Diagnosis Line: Normal sinus rhythm Diagnosis Line: Possible Left atrial enlargement Diagnosis Line: Prolonged QT Diagnosis Line: Abnormal ECG Diagnosis Line: No previous ECGs available Diagnosis Line: Confirmed by AMMON GODINEZ MD ([id number]) on Diagnosis Line: 09/13/2016 11:57:05 PM INTERPRETING MD: HERBERT PALMER
--- NOTE | ~2016-09-10 | CO ---
Unit #: [id number] #: [id number] Patient: MITCHELL CARMONA [id number] [facility] [address] [facility]. [place], [place] [address] [id number] I MR#: [id number] NAME: MITCHELL CARMONA ROOM: [facility] Age: 56 Sex: F Admission Date: 09/10/2016 : 1960 Attending Physician: Elmer Chacon M.D. Primary Care Physician: Vero Pagan M.D. Consultation Date: 09/11/2016 CONSULTATION REPORT PRIMARY CARE PHYSICIAN Vero Pagan M.D. REASON FOR CONSULTATION Recurrent seizures. PATIENT IDENTIFICATION This is a 56-year-old, right-handed, female, evaluated in ICU 15 at [facility]. SOURCE OF INFORMATION Obtained from the patient's family as well as medical record. HISTORY OF PRESENT ILLNESS This is a 56-year-old, right-handed, female with a past medical history of hypertension, GERD, seizures, subdural hematoma, migraines, history of bilateral hip surgery with recent left total hip revision on 09/07/2016 at this facility, for which she is on warfarin. Presented to [facility] after discharge yesterday with seizure activity. Again, she was last admitted to this facility on 09/06/2016 through 09/10/2016 for left total hip revision. She was seen in consultation by Pulmonology as well as Cardiology and was stable for discharge on 09/10/2016. She was taken out with a wheelchair to her son's car and began to complain of feeling unwell and lightheaded. Apparently, when she got in the car, she became unarousable and slumped over. Therefore, she was immediately brought back to the ER, had nausea, vomiting and was noted not to be moving her left side. She was given Narcan with some improvement, but was still not speaking and poorly responsive. Apparently, a code stroke was called; however, she was not felt to be a candidate for acute intervention as she just recently had surgery and she also had a witnessed seizure in the ER. She was given 1 g of Keppra. Apparently, she had a second seizure that was witnessed by the ER physician. Her daughter tells me that her left side has been weak in the past and is chronically weak. Her daughter attributes many of her issues to history of scleroderma, but reports that she has no prior history of seizures. She does states that she has had "spells" in the past in looking at records from [facility]. She was treated for spell secondary to hypoglycemia and presented in 07/2016 to their facility with a blood glucose of less than 20 after being found faced down in her litter box at home. The patient continues to be confused, wakes up with stimulation, but moans and is nonverbal. She moves extremities spontaneously, but does not follow commands. Her left side appears to be posturing in response to noxious stimuli. With the right arm, she has moved spontaneously, but at times has increased tone and is very difficult Unit #: [id number] #: [id number] Patient: MITCHELL CARMONA to evaluate. Again according to the family, she has had episodes in the past where she has become unresponsive since 04/2016. She apparently was taken to [facility] 04/2016 for subdural hematoma. Her daughter states that she was not treated for any seizures then and was told that the subdural hematoma was not causing any problems. Again, I have reviewed records from [facility] from July 05/2017. Please see above. They are in the chart. The daughter states that she does not have a diagnosis of seizures or epilepsy and is not on any seizure medication. Apparently, she may have had a seizure event after some sort of overdose in the past, those details are not clear. She had a head CT done in the ER without contrast on 09/10/2016 that showed generalized atrophy with no acute intracranial abnormality. It does show left maxillary sinusitis. She had a CT angiogram of the head and neck done in the ER on 09/10/2016, that shows no evidence of carotid for vertebral stenosis in the neck by NASCET criteria. No plaque disease or dissection. Intracranially, there appears to be unimpaired left anterior cerebral artery. 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 There was no intracranial aneurysm or vascular malformation. No vessel cutoff seen. There is a origin of right posterior cerebral artery. There was left maxillary sinusitis, gastroesophageal reflux, small left effusion with pulmonary emphysema, pulmonary arterial hypertension, left supraclavicular adenopathy of unknown significance. Radiology is to consider nonemergent chest CT for followup. Chest x-ray from 09/10/2016 shows mild cardiomegaly and mild pulmonary edema. PAST MEDICAL HISTORY 1. Hypertension. 2. GERD. 3. Scleroderma with previous admission to [facility] for treatment. According to the H and P from 07/2016, she was treated for non-STEMI likely type 2 from hypertension emergency scleroderma crisis versus noncompliance with medication. She was treated also for altered mental status, likely hypoglycemia versus hypertensive encephalopathy versus infectious versus iatrogenic, we thought likely secondary to hypoglycemia based upon improvement of symptoms with treatment. She was also treated for bacteremia with blood cultures from 07/16/2016 and 08/06/2016 positive for Enterococcus faecalis. Sputum culture positive for Staph aureus and Procalcitonin was 3.77 and lactic acid was 2.9 on admission and peaked at 4.1. 4. Discharge diagnosis includes hypertensive emergency felt to be secondary to scleroderma renal crisis and was resolved bacteremia due to enterococcus faecalis. Unsure of source on a blood cultures on 07/16/2016. She was seen by Infectious Disease. She was also treated for acute blood loss anemia. Please see those details. 5. Hyperlipidemia. 6. COPD. 7. Raynaud. 8. Depression. 9. Migraine headaches. 10. Previous subdural hematoma about 5 months ago, details unclear. 11. Bilateral hip surgery and the patient underwent left total hip revision on 09/07/2016 at this facility. Please see details above. 12. Colostomy with reversal after ruptured diverticulum. 13. Hand surgery. 14. Right shoulder surgery. ALLERGIES Include morphine. Unit #: [id number] #: [id number] Patient: MITCHELL CARMONA HOME MEDICATIONS Include; omeprazole, bupropion XL, nifedipine ER, aspirin, Zyrtec, Cymbalta, Lasix, Neurontin, melatonin, Lipitor, milk of magnesia, Dulcolax, Combivent, Lopressor, hydrochlorothiazide, guaifenesin, Lortab, cephalexin, prednisone, Wellbutrin XL, Warfarin. FAMILY HISTORY As per medical records from [facility], include myocardial infarction and diabetes mellitus. SOCIAL HISTORY The patient apparently lives with her son and his family. She stops smoking last fall, has a history of alcohol use, but no longer drinks. REVIEW OF SYSTEMS Unable to obtain from the patient given her mental status. PHYSICAL EXAMINATION VITAL SIGNS: Temperature 100.5, pulse 86, respirations 17, blood pressure 127/87, oxygen saturation 100%. Height 5 feet 7 inches, weight 176 pounds, BMI 27. NEUROLOGIC: The patient is arousable, but confused. She is nonverbal. She moans. She does not follow commands. She has been evaluated multiple times by myself and also by Dr. Yoder. She continues to have some focal twitching in the left. EEG is pending. She is no longer having any generalized seizure activity since witnessed in the emergency room. Exam is limited as the patient does not follow commands and is unable to contribute verbally. Cranial nerve exam, she responds to threats in the primary visual ortiz. Eyes are conjugate. Eyes are dilated 4 to 5+. Extraocular movements appeared to be intact with oculocephalic maneuver. Unable to assess sensation of face and scalp. Strength of muscles of facial expression appear intact with grimace in response and noxious stimuli. Hearing is unable to be fully assessed. Tongue, uvula, and palate are unable to be assessed. Head turning is unremarkable spontaneously. Neck is supple. Motor exam, she postures on the left in response to noxious stimuli, decerebrate. She moves the right side spontaneously, but does not follow commands. Sensory exam as discussed above. Limited. Gait and Romberg deferred. Reflexes, unable to elicit. Toes are upgoing. Coordination, unable to assess. DIAGNOSTIC STUDIES Please see above. LABORATORY RESULTS: White blood cell count 19.4, hemoglobin 8.2, hematocrit 26, platelet count 318. CPK 197. Sodium 133, potassium 4.5, chloride 96, CO2 of 27, glucose 86, BUN 28, creatinine 1.1, estimated GFR 55, calcium 8.3, AST 31, ALT 21, alkaline phosphatase 131, total protein 7, albumin 2.9, troponin 0.42. PT 13.8, INR 2.8, PTT 24.6. Arterial blood gas from this morning; pH 7.485, pCO2 of 39.6, PO2 of 66.8, bicarb 29.8, O2 saturation 92.8% on 2 L nasal cannula. Repeat troponin 0.61, repeat CPK 218. Unit #: [id number] #: [id number] Patient: MITCHELL CARMONA IMPRESSION 1. Generalized seizures with focal seizure activity, clinically at least current clinical exam is concerning for that is a possibility, questionable etiology regarding recurrent seizure activity. 2. History of scleroderma. 3. History of subdural hematoma. 4. Hypertension. 5. Chronic obstructive pulmonary disease. 6. Leukocytosis and fever, questionable related to seizure versus other etiology. She has had a recent treatment for bacteremia. Please see details above. 7. Recent hip surgery. 8. Anticoagulation secondary to recent hip surgery. PLAN The patient has been started on Dilantin, Keppra, and Vimpat. We have added Depacon. We will continue AEDs pending clinical improvement. EEG is pending. The question is what is the etiology why was her threshold lowered. We will request MRI of the brain and further workup as per admitting team and music educator team. Urinalysis pending. Blood cultures and sputum culture are pending. Blood cultures also recommended if not done. The patient has been started on antibiotics and is on Vancocin and ceftriaxone. We will follow along closely with you. The patient has been seen and evaluated by Dr. Yoder. We thank you very much for allowing us to assist in the care of this patient. Dictated by... Carmen Kline A.P.R.N. for Verena Hylton/adrian TD: 09/11/2016 19:04 JOB #: [id number] CONSULTATION REPORT X Carmen Kline APRN X CONSULTATION REPORT
--- NOTE | ~2016-09-10 | CR72 ---
[facility] A Service of [facility] & [facility] RADIOLOGY TEXT RESULTS PATIENT: MITCHELL CARMONA LOCATION: [address]15 : [birth year] UNIT #: [id number] AGE: [address]: NESSA STEWARD MD SEX: F ORDER DR: [id number] [facility] [address] [facility]. [place], [place] [address] [id number] I MR#: [id number] Acc #: [id number] NAME: MITCHELL CARMONA : 1960 SEX: F STUDY DATE/TIME: 09/14/2016 6:26 UNIT: [facility] ROOM: [facility] STUDY DESCRIPTION: CR Chest Single View Portable Attending Physician: Elmer Chacon M.D. Ordering Physician: Marcelina Johnson M.D. Primary Care Physician: Vero Pagan M.D. MEDICAL IMAGING REPORT This report is preliminary unless electronic signature is present EXAM Portable chest INDICATION Acute respiratory failure. Follow up endotracheal tube. FINDINGS Today's portable view of the chest shows the endotracheal tube has its tip 2-3 cm above the ajay. The PIC catheter has its tip in the superior vena cava. There continues to be left lower lobe atelectasis and the rest of the lungs are clear. Dictated by... Sai Michaels M.D. THIS IS AN ELECTRONICALLY VERIFIED REPORT Sai Michaels M.D. at 09/14/2016 9:51 AM SUKH/josie TD: 09/14/2016 09:14 JOB #: [id number] MEDICAL IMAGING REPORT COPY
--- NOTE | ~2016-09-10 | CR72 ---
[facility] A Service of [facility] & [facility] RADIOLOGY TEXT RESULTS PATIENT: MITCHELL CARMONA LOCATION: [address]-15 : [birth year] UNIT #: [id number] AGE: [address]: NESSA GALDAMEZ MD SEX: F ORDER DR: [id number] [facility] [address] [place], [place] [address] [id number] I MR#: [id number] Acc #: [id number] NAME: MITCHELL CARMONA : 1960 SEX: F STUDY DATE/TIME: 09/19/2016 3:39 UNIT: [facility] ROOM: [facility] STUDY DESCRIPTION: CR Chest Single View Portable Attending Physician: Nessa Galdamez M.D. Ordering Physician: Marcelina Johnson M.D. Primary Care Physician: Vero Pagan M.D. MEDICAL IMAGING REPORT This report is preliminary unless electronic signature is present EXAM AP portable chest 09/19/2016 HISTORY Respiratory failure. Follow up cardiopulmonary status. TECHNIQUE AP portable chest x-ray. FINDINGS Dense focal airspace opacity in the periphery of the left midlung today is new since 09/17/2016 and 09/16/2016. New or worsening pulmonary infiltrate is likely. Left basilar infiltrate is unchanged. Right lung remains clear. Cardiomegaly is stable. Pulmonary vascularity is normal. Right arm PICC and NG tube remain in good position. IMPRESSION 1. New focal infiltrate in the peripheral left midlung concerning for new or worsening pulmonary infiltrate. 2. Persistent infiltrate or atelectasis left lung base. STAT * RESULT Dictated by... Nickolas Dickson M.D. THIS IS AN ELECTRONICALLY VERIFIED REPORT Nickolas Dickson M.D. at 09/19/2016 6:02 AM RGW/rnr [facility] A Service of [facility] RADIOLOGY TEXT RESULTS PATIENT: MITCHELL CARMONA LOCATION: [facility]3-15 : [birth year] UNIT #: [id number] AGE: [address]: NESSA GALDAMEZ MD SEX: F ORDER DR: TD: 09/19/2016 04:52 JOB #: [id number] MEDICAL IMAGING REPORT COPY
--- NOTE | ~2016-09-10 | CO ---
Unit #: [id number] #: [id number] Patient: MITCHELL CARMONA [id number] [facility]. [place], [place] [address] [id number] I MR#: [id number] NAME: MITCHELL CARMONA ROOM: 332 Age: 56 Sex: F Admission Date: 09/10/2016 : 1960 Attending Physician: Carissa Donald M.D. Primary Care Physician: Vero Pagan M.D. Consultation Date: 09/29/2016 CONSULTATION REPORT REASON FOR CONSULTATION Anxiety, depression, agitation. HISTORY OF PRESENT ILLNESS Ms. Urias is a 56-year-old female, seen in room 332 at [facility] on 09/29/2016. The patient reports that she has been in the hospital for quite some time. The patient was admitted on 09/10/2016. The patient reports that she would like to go to [place], [place]. At this time, bilingual social worker is currently working on placement. The patient has a history of seizure. The patient initially had altered mental status, but currently having problem with mood lability, anxiety, agitation. The patient currently denied any thoughts of harming self or others or any psychotic symptom. Currently, denied any history of any substance abuse. PAST PSYCHIATRIC HISTORY Remarkable for depression and anxiety, was on Cymbalta. MEDICATION HISTORY The patient is currently on Smock, Lipitor, Lopressor, nifedipine, prednisone, Combivent, Wellbutrin, Coumadin, Neurontin, Cymbalta, Lipitor, Keflex, Lasix, melatonin, and omeprazole. MEDICAL HISTORY Remarkable for history of hypertension, gastroesophageal reflux disease, scleroderma, hyperlipidemia, COPD, Raynaud disease, depression, migraine headache, bilateral hip surgery, hand surgery, right shoulder surgery. ALLERGIES Morphine. FAMILY HISTORY AND SOCIAL HISTORY No family support. No history of any abuse. No history of any substance abuse. REVIEW OF SYSTEMS Complete review of systems is remarkable for as mentioned above. MENTAL STATUS EXAMINATION General appearance, the patient dressed casually in hospital attire, lying comfortably. Attention span and concentration, fair. Speech, rapid. Oriented in time, place, and person. Mood and affect were labile. Thought process, circumstantial. Thought content, guarded, paranoid, but denied any thoughts of harming self or others. Recent and remote memory, Unit #: [id number] #: [id number] Patient: MITCHELL CARMONA. Language, able to name object, repeat phrases. Fund of knowledge, fair. Insight and judgment, fair to slightly impaired. DIAGNOSES Psychiatric: Major depressive disorder, recurrent, severe, F33.2. Secondary diagnosis: Deferred. Medical diagnosis: Please refer to H and P. Stressors: Psychosocial stressor. ASSESSMENT/PLAN 1. Supportive psychotherapy and psychoeducation provided to the patient. 2. Educated about benefits and side effects of medication and course and prognosis of illness. 3. Advised to continue with current medications and if needed, consider resuming her medication Cymbalta as the patient was on this medication. We will continue to follow. Please feel free to call if any questions, telephone #[phone]. Dictated by... Verena Suarez/adrian TD: 09/30/2016 04:20 JOB #: [id number] CONSULTATION REPORT Page 1 of 1 X Felipe Wills MD X CONSULTATION REPORT
--- NOTE | ~2016-09-10 | CR72 ---
[facility] A Service of [facility] & [facility] RADIOLOGY TEXT RESULTS PATIENT: MITCHELL CARMONA LOCATION: [address]3-15 : [birth year] UNIT #: [id number] AGE: [address]: Elmer Chacon MD SEX: F ORDER DR: [id number] [facility] [address] [facility]. [place], [place] [address] [id number] I MR#: [id number] Acc #: [id number] NAME: MITCHELL CARMONA : 1960 SEX: F STUDY DATE/TIME: 09/10/2016 21:33 UNIT: [facility] ROOM: [facility] STUDY DESCRIPTION: CR Chest Single View Portable Attending Physician: Cheyenne Andre M.D. Ordering Physician: Gilson Forrester D.O. Primary Care Physician: Vero Pagan M.D. MEDICAL IMAGING REPORT This report is preliminary unless electronic signature is present EXAM Portable chest 2 views 09/10/2016 HISTORY Hypoxia, status post seizure today with vomiting and aspiration, cough for 3 days. FINDINGS There is mild cardiac enlargement. There are interstitial infiltrates seen diffusely throughout both lungs characteristic of mild pulmonary edema. There are no pleural effusions. No pneumothorax. IMPRESSION Mild cardiomegaly and mild pulmonary edema. Dictated by... Arron Blanco M.D. THIS IS AN ELECTRONICALLY VERIFIED REPORT Arron Blanco M.D. at 09/11/2016 2:56 PM KRT/nitin TD: 09/11/2016 08:51 JOB #: [id number] MEDICAL IMAGING REPORT COPY
--- NOTE | ~2016-09-10 | CO ---
Unit #: [id number] #: [id number] Patient: MITCHELL CARMONA [id number] [address] [address] [id number] I MR#: [id number] NAME: MITCHELL CARMONA ROOM: [facility] Age: 56 Sex: F Admission Date: 09/10/2016 : 1960 Attending Physician: Carissa Donald M.D. Primary Care Physician: Vero Pagan M.D. Consultation Date: 09/30/2016 CONSULTATION REPORT REASON FOR CONSULTATION Followup. DISCUSSION Ms. Urias is a 56-year-old female, seen on 09/30/2016 in bed 322. The patient was sleepy and drowsy, but cooperative. The patient is tolerating medication fairly well. No side effects from medication. The patient did not show any agitation or aggression. The patient's vital signs; 97.5, 61, 18, 116/80. REVIEW OF SYSTEMS Complete review of systems unremarkable. MENTAL STATUS EXAMINATION General appearance, the patient dressed in hospital attire. Attention span and concentration, fair. Speech, slow. Oriented in place. Mood and affect, sad, depressed, flat. Thought process, coherent. Thought content; guarded, but denied any thoughts of harming self or others. Recent and remote memory, poor. Language, able to name object and repeat phrases. Fund of knowledge, fair. Insight and judgment, fair to slightly impaired. DIAGNOSIS Psychiatric: Major depressive disorder, recurrent, severe, F33.2. ASSESSMENT/PLAN 1. Supportive psychotherapy and psychoeducation provided to the patient. 2. Educated about benefits and side effects of medication and course and prognosis of illness. 3. Advised to continue with current medication. If needed, consider further adjustment of medication. Dictated by... Felipe Wills M.D. GRANT/adrian TD: 10/02/2016 00:05 JOB #: [id number] Unit #: [id number] #: [id number] Patient: MITCHELL CARMONA CONSULTATION REPORT Page 1 of 1 X Felipe Wills MD CONSULTATION REPORT
--- NOTE | ~2016-09-10 | CR72 ---
[facility] A Service of [facility] & [facility] RADIOLOGY TEXT RESULTS PATIENT: MITCHELL CARMONA LOCATION: [address]15 : [birth year] UNIT #: [id number] AGE: [address]: NESSA GALDAMEZ MD SEX: F ORDER DR: [id number] [facility] [address] [facility]. [place], [place] [address] [id number] I MR#: [id number] Acc #: [id number] NAME: MITCHELL CARMONA : 1960 SEX: F STUDY DATE/TIME: 09/21/2016 6:03 [facility] STUDY DESCRIPTION: CR Chest Single View Portable Attending Physician: Nessa Galdamez M.D. Ordering Physician: Marcelina Johnson M.D. Primary Care Physician: Vero Pagan M.D. MEDICAL IMAGING REPORT This report is preliminary unless electronic signature is present EXAM Frontal chest 09/21/2016 INDICATIONS 56-year-old female with respiratory failure, cerebritis, fever, symptoms since the 10 of September, found down. History of hip revision 09/10/2016. Hypertension. COPD. TECHNIQUE Frontal chest compared with 09/19/2016 FINDINGS Right-sided PICC line unchanged. Enteric tube has been removed. The cardiac silhouette is enlarged but stable. Worsening consolidation in the midlung zone on the left along with new consolidation involving the upper lung zone on the left. Worsening opacities are also present in the left lung base and there are new perihilar interstitial and faint alveolar opacities in the perihilar and midlung zone on the right. Imaging features most characteristic of worsening multifocal pneumonia. Small left effusion. No pneumothorax. IMPRESSION 1. Removal of the enteric tube. The right-sided PICC line remains in place. 2. Worsening appearance of both lungs particularly of the left lung with imaging features most characteristic of worsening multifocal pneumonia. There is new consolidation in the mid and upper lung zone on the left. Persistent opacities in the left lung base with new opacities in the perihilar and midlung zone on the right as well. At least a small left effusion. No pneumothorax STAT * RESULT [facility] A Service of [facility] & [facility] RADIOLOGY TEXT RESULTS PATIENT: MITCHELL CARMONA LOCATION: [address] : [birth year] UNIT #: [id number] AGE: [address]: NESSA GALDAMEZ MD SEX: F ORDER DR: Dictated by... Armand Everett M.D. THIS IS AN ELECTRONICALLY VERIFIED REPORT Armand Everett M.D. at 09/21/2016 7:46 AM LUCITA/frances TD: 09/21/2016 06:46 JOB #: [id number] MEDICAL IMAGING REPORT COPY
--- NOTE | ~2016-09-10 | US139 ---
[facility] A Service of [facility] RADIOLOGY TEXT RESULTS PATIENT: MITCHELL CARMONA LOCATION: [address] : [birth year] UNIT #: [id number] AGE: [address]: NESSA GALDAMEZ MD SEX: F ORDER DR: [id number] [facility] [address] [place], [place] [address] [id number] I MR#: [id number] Acc #: [id number] NAME: MITCHELL CARMONA : 1960 SEX: F STUDY DATE/TIME: 09/16/2016 19:13 UNIT: [facility] ROOM: [facility] STUDY DESCRIPTION: US UE Veins Complete Ramirez Stdy Attending Physician: Nessa Galdamez M.D. Referring Physician: Davide Wlof M.D. Ordering Physician: Kilo Vu M.D. Primary Care Physician: Vero Pagan M.D. MEDICAL IMAGING REPORT This report is preliminary unless electronic signature is present EXAM Ultrasound venous Doppler, upper extremities, complete, bilateral. DATE OF EXAM 09/16/2016 CLINICAL HISTORY Bilateral upper extremity swelling since today, right greater than left. History of Raynaud syndrome and lupus. TECHNIQUE Real-time ultrasonography of bilateral upper extremity deep and superficial venous systems performed with 2D grayscale compression imaging, color flow Doppler imaging and waveform analysis. Technologist notes that the study is limited by the patient's inability to cooperate. She indicates that the patient kept moving throughout the examination and drawing the right arm up into her body. FINDINGS Proximal and distal basilic vein is not visualized on the right side. Evaluation of the right upper extremity shows soft tissue edema in the right lateral upper arm. Normal flow and compressibility is seen in the downstream right internal jugular vein, subclavian vein, axillary vein, deep and superficial brachial veins, proximal and distal cephalic veins. The PICC line is seen on the right side. On the left side, normal flow and compressibility is seen in the downstream left internal jugular vein, left subclavian axillary, deep and superficial brachial veins, proximal and distal cephalic veins and proximal and distal basilic veins. IMPRESSION 1. Technically limited study, in particular, the proximal and distal basilic veins not seen on the right side. 2. Nothing to suggest acute appearing deep or superficial venous STS. [facility] A Service of [facility] RADIOLOGY TEXT RESULTS PATIENT: MITCHELL CARMONA LOCATION: [address] : [birth year] UNIT #: [id number] AGE: [address]: NESSA GALDAMEZ MD SEX: F ORDER DR: thrombosis of either upper extremity venous system. 3. There is a right-sided PICC line present, and there is edema within the soft tissues right upper extremity laterally. STAT * RESULT Dictated by... Kia Adame M.D. THIS IS AN ELECTRONICALLY VERIFIED REPORT Kia Adame M.D. at 09/16/2016 8:52 PM MADALYN/nancy TD: 09/16/2016 20:32 JOB #: [id number] MEDICAL IMAGING REPORT COPY
--- NOTE | ~2016-09-10 | A ---
[facility] Nutrition Therapy DATE: 09/11/16 Patient: MITCHELL CARMONA Physician: AJ Address: [address] [facility] Room/Bed: [address], Zip: [place] [address] Admit Date: 09/10/16 Date of : [birth year] Height: 5 7 Weight: 176 80 NUTRITIONAL ASSESSMENT: REASON: 1 nutrition risk pt, NPO Pt is 56 yo female admitted for recurrent seizures PMH: HTN, GERD, HLD, COPD, scleroderma, Raynaud, depression, hip surgery (09/07/16), pulmonary HTN. hypoglycemia Anthropometrics: 5'11", 80 kg, BMI 24.6 Labs: Na+ 133, Cl- 96, BUN 28, Ca++ 8.3, Alb 2.9, GFR 55, BNP 1557 Meds: Colace, Protonix, Phenytoin (IV), KCl, Solu-medrol I/O & Bowel function: 2410/4626 Skin Integrity: Amputation: R great toe, R hand-3 fingers, L hip incision Edema: BUE (trace), trunk (generalized) Estimated Nutrition Needs: 6144-5687 kcal (25-30 kcal/kg) 96-120 grams protein (1.2-1.5 gm/kg) Assessment: Chart reviewed, events noted. Pt was discharged from hospital on 09/10/16 after total hip revision. Readmitted the same day after she became unarousable in her car. RN noted decreased response from yesterday. Pt is NPO due to this. Pt's family was in room during visit, they reported pt's ht as 5'11" and recent wt loss of unkown amount due to being in and out of the hospital. Pt has NGT, draining brown per RN report. Please see recommendations below. Dx: Inadequate energy-protein intake RT current codition AEB NPO status. Intervention: 1. Enteral nutrition vs. diet Monitoring, Evaluation and Goals: 1. Nutrition; provide >80% of estimated needs 2. Labs; WNL 3. GI; promote regular GI function Recommendations: 1. Once medically feasible, if the pt is able to take nutrition PO recommend advancing to [facility] Nutrition Therapy DATE: 09/11/16 Patient: MITCHELL CARMONA Physician: AJ Address: [address] [facility] Room/Bed: [address], Zip: [place] [address] Admit Date: 09/10/16 Date of : [birth year] Height: 5 7 Weight: 176 80 a HH diet as tolerated. If PO intake is <50% add Ensure BID. 2. If pt is unable to take nutrition PO recommend initiating enteral nutrition with Jevity 1.5 @ 20 mL/hr. Increase by 10 mL q 8 hrs as tolerated to goal of 65 mL/hr. This will provide: 2340 kcal/100 grams protein/1186 mL free H2O Pt is at moderate nutritional risk. RD will follow hospital course. Respectfully, KIM DEWEY, Snack Steward Carmen Ott RD, LD Food and Nutritional Services [facility] cc: client file
--- NOTE | ~2016-09-10 | CT72 ---
[facility] A Service of [facility] RADIOLOGY TEXT RESULTS PATIENT: MITCHELL CARMONA LOCATION: [place] [address]-15 : [birth year] UNIT #: [id number] AGE: [address]: Elmer Chacon MD SEX: F ORDER DR: [id number] [place] [id number] [facility]. [place], [place] [address] [id number] I MR#: [id number] Acc #: [id number] NAME: MITCHELL CARMONA : 1960 SEX: F STUDY DATE/TIME: 09/10/2016 20:14 UNIT: [facility] ROOM: [facility] STUDY DESCRIPTION: CT Head Wo Contrast Stroke Attending Physician: Cheyenne Andre M.D. Ordering Physician: Gilson Forrester D.O. Primary Care Physician: Vero Pagan M.D. MEDICAL IMAGING REPORT This report is preliminary unless electronic signature is present EXAM Head CT without contrast 09/10/2016 HISTORY Syncopal episode today with acute onset of weakness left side. TECHNIQUE This CT examination was performed with one or more of the following radiation dose reduction techniques: automatic exposure control, adjustment of mA and/or kV according to patient size, and iterative reconstruction. FINDINGS Multiple axial images were obtained from the skull base to vertex without intravenous contrast administration. There is generalized enlargement of the ventricles and sulci characteristic of atrophy. There is no midline shift. There is no mass or mass effect, hemorrhage or acute infarct. There is an air-fluid level in the left maxillary sinus characteristic of sinusitis. IMPRESSION 1. Generalized atrophy. No acute intracranial abnormality. 2. Left maxillary sinusitis. Dictated by... Arron Blnaco M.D. THIS IS AN ELECTRONICALLY VERIFIED REPORT Arron Blanco M.D. at 09/11/2016 2:56 PM MAHAD/josie TD: 09/11/2016 08:34 [facility] A Service of [facility] RADIOLOGY TEXT RESULTS PATIENT: MITCHELL CARMONA [id number] : [birth year] UNIT #: [id number] AGE: [address]: Elmer Chacon MD SEX: F ORDER DR: SALINAS #: [id number] MEDICAL IMAGING REPORT COPY
--- NOTE | ~2016-09-10 | HP ---
Unit #: [id number] #: [id number] Patient: MITCHELL CARMONA [id number] [facility]. [place], [place] [address] [id number] I MR#: [id number] NAME: MITCHELL CARMONA ROOM: [facility] Age: 56 Sex: F Admission Date: 09/10/2016 : 1960 Attending Physician: Cheyenne Andre M.D. Primary Care Physician: Vero Pagan M.D. HISTORY AND PHYSICAL CHIEF COMPLAINT Altered mental status, recurrent seizures. HISTORY This 56-year-old female with scleroderma associated with pulmonary hypertension and hypertension, is admitted for altered mental status. The patient was last admitted to this facility 09/06/2016 through today, which is 09/10/2016 for left total hip revision. Was seen in consultation both by pulmonary as well as by cardiology. She was being taken out with a wheelchair to her son's car. She began to complain of feeling unwell and lightheaded. When she say in the car, she became unarousable and slumped over. She was brought back immediately to the emergency department, had nausea and vomiting, was noted not to be moving her left side and had altered mental status. She was given Narcan with some improvement of her mental status but still moaning and not speaking. She then had a witnessed seizure in the ER. Was given 1 g of Keppra. I am unsure if the seizure occurred before or after Narcan. Call was made to neurology as well. Head Ct shows no acute disease. CTA of the head and neck show no cutoff or aneurysm. Patient is taking Coumadin with a therapeutic INR. While awaiting to see me in the ER, the patient had a second seizure, which was witnessed by the ER physician. She was given 2 mg of IV Ativan. She now is confused. She does awaken, say the word yes when I ask her question, and then doses off. She is moving her arms and right leg spontaneously. Her left arm is somewhat stiff. According to family, the patient has had episodes in the past where she become unresponsive. She was taken to [facility] about four or five months ago for a subdural hematoma. Although her old records list seizures in the past, family states that the patient does not have epilepsy. She did have one seizure after some sort of overdose in the past. PAST MEDICAL HISTORY 1. Hypertension. 2. GERD. 3. Scleroderma with previous admission to [facility] for hypertensive crisis. CAMI revealed an ejection fraction of 60% with diastolic dysfunction, moderate pulmonary artery dilation, mild to moderate TR, severe pulmonary hypertension with right ventricular systolic pressures of about 65 mmHg. 4. Hyperlipidemia. 5. COPD. 6. Raynaud. Unit #: [id number] #: [id number] Patient: MITCHELL CARMONA 7. Depression. 8. Migraine headaches. 9. Previous subdural hematoma about 5 months ago. 10. Bilateral hip surgery. The patient underwent left total hip revision 09/07/2016. 11. Colostomy with reversal after a ruptured diverticulum. 12. Hand surgery. 13. Right shoulder surgery. ALLERGIES Morphine. HOME MEDICATIONS [place] 10/325 q.4 p.r.n.; Zyrtec 5 mg daily; Lipitor 40 mg daily; Lopressor 25 mg b.i.d.; nifedipine XL 90 mg daily; prednisone taper; Combivent; Wellbutrin XL 300 mg daily; Coumadin 7.5 mg daily; Neurontin 300 mg b.i.d.; Cymbalta 60 mg daily; Lipitor 40 mg daily; Keflex 250 mg q.i.d. x3 more days for a urinary tract infection; Lasix 20 mg daily; HCTZ 25 mg daily; guaifenesin 600 mg b.i.d.; melatonin 3 mg q.h.s.; aspirin 81 mg daily; omeprazole 40 mg b.i.d. FAMILY HISTORY Negative for neurologic disease or seizures. SOCIAL HISTORY The patient lives with her son and his family. She stopped smoking last fall, no longer drinks alcohol. REVIEW OF SYSTEMS Impossible to obtain as patient currently is quite confused. PHYSICAL EXAMINATION GENERAL: Somnolent, confused, but arousable 56-year-old female who looks older than stated age. VITAL SIGNS: Temperature is 96 degrees, pulse 85, respirations 16, blood pressure 168/77, O2 saturation 98% on 2 L of oxygen. HEENT: Pupils are dilated bilaterally and do react. Unable to view the oropharynx. NECK: Supple without adenopathy or thyromegaly. CHEST: Reveals rhonchi. CARDIAC: Normal S1 and S2, soft systolic murmur at the left lower sternal border. ABDOMEN: Bowel sounds are diminished, nontender. No hepatosplenomegaly or masses. EXTREMITIES: Notable for sclerodactyly over the fingers and toes. Pedal pulses are somewhat diminished. No pedal edema. Patient has a left hip incision with vinod, which is clean and dry and a clean bandage over this. Skin reveals telangiectasias. NEUROLOGIC: Patient is lethargic but arousable. Her cranial nerves appear to be intact. She moves her legs and her right arm spontaneously. She keeps her left arm extended and stiff. She does arouse, says the word yes but otherwise moans. DIAGNOSTIC STUDIES ADMISSION LABS: Hematocrit is 26.9, down from 28.8 this morning. White blood count is 17.4, platelet count is 440. INR is 2.8, PTT is 26.8. SMA 12 - glucose 119, BUN 33, sodium 130, chloride 99, protein 8.8, albumin is 3.4. Alk phos is 264, has been elevated in the past as well. BNP 1600. Unit #: [id number] #: [id number] Patient: MITCHELL CARMONA ABG - pH 7.41, pCO2 37, pO2 200, O2 saturation 98.6% on 50% Ventimask. Cardiac markers are negative. IMAGING STUDIES: Chest x-ray - mild cardiomegaly, mild congestive heart failure. Head CT - atrophy. CT of the head and neck - no cutoff or aneurysm. Subclavicular shotty adenopathy noted. Patient will need a CT scan of her chest in the future if one has not been performed recently. CARDIOLOGY STUDIES: EKG - normal sinus rhythm, rate 84. ASSESSMENT 1. Two seizures after being discharged today, following hip revision. Patient does have a previous history of head injury with a subdural hematoma about four to five months ago. Also a seizure history is listed in her old records, family states that the patient does not have epilepsy. She had a seizure related to an overdose in the past. Has experienced episodes of decreased mental status, that the family has noted over the past year. 2. Altered mental status with decreased movement of the left arm. Head CT does not show an acute stroke. But obviously will get an MRI scan in the morning. 3. Scleroderma, lupus, and pulmonary hypertension. 4. COPD on home oxygen. 5. GERD. 6. Hypertension. 7. History of hypoglycemia per the family. 8. Recent left total hip revision, 09/07/2016. PLANS 1. IV Keppra will be continued, obtain EEG and MRI of the brain. Neurology consultation. 2. Change medications to an alternate route until taking p.o. 3. SCDs for DVT prophylaxis. 4. Differential Specialist to see in the morning. 5. Daily PT and INR. 6. Repeat all labs in the morning and cardiac enzymes as well. 7. Urinalysis. Critical care time spent in evaluating this patient was 40 minutes. Dictated by Cheyenne Andre M.D. AML/ts TD: 09/11/2016 05:53 JOB #: [id number] Unit #: [id number] #: [id number] Patient: MITCHELL CARMONA HISTORY AND PHYSICAL X Cheyenne Andre MD X HISTORY AND PHYSICAL
--- NOTE | ~2016-09-10 | FU ---
[facility] Nutrition Therapy DATE: 09/22/16 Patient: MITCHELL CARMONA Physician: AJ Address: [address] [facility] Room/Bed: [address], Zip: [place] [address] Admit Date: 09/10/16 Date of : [birth year] Height: 5 7 Weight: 194 88.1 NUTRITION MONITORING/FOLLOW-UP: Reason: Nutrition follow up Anthropometrics: Wt 09/22: 88.1 kg Labs: Gluc 55 BUN 36 Ca++ 8.2 Alb 2.5 Accuchecks 64-111 GFR 49.8 Meds: Lipitor, KCl, phenytoin (IV), protonix, D10%, furosemide, prednisone, colace I&O's: 2135/2379, last BM 09/22 Skin: Reviewed. No changes noted. Edema: Generalized- trunk/ hips/ upper legs Pedal/ ankle 1+ Left arm and hand 2+ Diet: Mechanical soft wiht ground meats and thin liquids Assessment: Chart reviewed, events noted. Pt has been ordered a mechanical soft diet with ground meats per BAG CHECKER recommendations. Pt is no longer receiving enteral nutrition. RN reports that the pt requires feeding assistance, and has been eating soup, pudding and applesauce mostly, and will take a few bites of each item on tray. RN also reports that there are concerns of aspiration, and they are holding any thin liquids until BAG CHECKER can re-evaluate. Pt remains disoriented per RN report, and continues to groan/ talk continuously. Pt is not appropriate for diet education at this time. RD will order Ensure pudding, and RN reports the pt prefers vanilla. Will continue to follow. Nutrition problem/ diagnosis remains with changes made to evidence. Dx: Inadequate protein-energy intake RT clinical condition AEB pt with fair PO intake reported by RN- ACTIVE Intervention: 1. BAG CHECKER 2. Mechanical soft with ground meats 3. Ensure pudding TID Monitoring, Evaluation and Goals: GOALS NOT MET 1. Oral intake; tolerate >50-75% meals and suppelements 2. Labs; WNL 3. Weight; prevent unintentional weight loss [facility] Nutrition Therapy DATE: 09/22/16 Patient: MITCHELL CARMONA Physician: AJ Address: [address] [facility] Room/Bed: [address], Zip: [place] [address] Admit Date: 09/10/16 Date of : [birth year] Height: 5 7 Weight: 194 88.1 4. Skin; prevent breakdown Recommendations: 1. Recommend BAG CHECKER evaluation due to concern for aspiration reported by RN. Advance diet per BAG CHECKER recommendaitons. 2. Ensure vanilla pudding TID with meals for supplemental nutrition. 3. Appreciate staff and family encouraging and assisting with intake of meals. 4. Obtain accurate weights, as the pt's weights vary since admission. Status: Pt is at mild-moderate nutritional risk. RD will continue to follow. Respectfully, WILLIE PULIDO RD, LD Food and Nutritional Services [facility] cc: client file
--- NOTE | ~2016-09-10 | MR17 ---
[facility] A Service of [facility] RADIOLOGY TEXT RESULTS PATIENT: MITCHELL CARMONA LOCATION: [address] : [birth year] UNIT #: [id number] AGE: [address]: NESSA GALDAMEZ MD SEX: F ORDER DR: [id number] [facility] [address] [place], [place] [address] [id number] I MR#: [id number] Acc #: [id number] NAME: MITCHELL CARMONA : 1960 SEX: F STUDY DATE/TIME: 09/11/2016 22:07 UNIT: [facility] ROOM: [facility] STUDY DESCRIPTION: MR Brain WWo Contrast Attending Physician: Nessa Galdamez M.D. Ordering Physician: Cheyenne Andre M.D. Primary Care Physician: Vero Pagan M.D. MRI CENTER REPORT This report is preliminary unless electronic signature is present. EXAM Brain MRI with and without contrast, 09/11/2016. PROCEDURE Routine brain MR with and without contrast. CLINICAL HISTORY Status post seizure while on an automobile trip. FINDINGS There is no acute intracranial hemorrhage, but the exam is markedly abnormal. There is marked abnormal signal throughout much of the right hemisphere in a watershed zone type distribution, but the findings are not typical of acute ischemia. There is some cortical restricted diffusion, but extensive white matter change in the subcortical region does not show restricted diffusion. There is sulcal effacement in the right hemisphere, but no leftward midline shift or even substantial ventricular compression. There is some left frontal and frontal opercular edema as well, but there is no hemorrhagic conversion. Some changes are seen in the right occipital cortex and left parietal and/or temporal cortex also showing atypical signal. Postcontrast images show very faint cortical enhancement in the superior right frontal lobe and the major cerebral vessels appear normally patent. There is sinus mucosal disease and even a left maxillary and right maxillary air-fluid level, but it is a nonspecific finding in an intubated patient. IMPRESSION Unusual markedly abnormal exam. There is extensive abnormal FLAIR and T2 signal throughout the right hemisphere with local mass effect including sulcal effacement, but no ventricular compression or leftward midline STS. [facility] A Service of [facility] RADIOLOGY TEXT RESULTS PATIENT: MITCHELL CARMONA LOCATION: CIC3 CICCU3-15 : [birth year] UNIT #: [id number] AGE: [address]: NESSA GALDAMEZ MD SEX: F ORDER DR: felix. There may be some faint enhancement but there is no significant hemorrhage. There is no extraaxial fluid collection, and there are some changes in the right occipital lobe and in the left frontal lobe and left temporal lobe. The findings do not suggest acute ischemia. Findings are most typical or suggestive of an acute cerebritis, and CSF sampling may be prudent. A variety of causes ARE certainly possible, certainly including herpes encephalitis though the findings are not classic. Dictated by... Francis Sweeney M.D. THIS IS AN ELECTRONICALLY VERIFIED REPORT Francis Sweeney M.D. at 09/14/2016 5:02 PM TEV/kenyatta TD: 09/14/2016 09:28 JOB #: [id number] MRI CENTER REPORT COPY
--- NOTE | ~2016-09-10 | CR72 ---
[facility] A Service of [facility] RADIOLOGY TEXT RESULTS PATIENT: MITCHELL CARMONA LOCATION: [address] : [birth year] UNIT #: [id number] AGE: [address]: NESSA GALDAMEZ MD SEX: F ORDER DR: [id number] [facility] [address] [place], [place] [address] [id number] I MR#: [id number] Acc #: [id number] NAME: MITCHELL CARMONA : 1960 SEX: F STUDY DATE/TIME: 09/15/2016 6:10 UNIT: [facility] ROOM: [facility] STUDY DESCRIPTION: CR Chest Single View Portable Attending Physician: Nessa Galdamez M.D. Ordering Physician: Marcelina Johnson M.D. Primary Care Physician: Vero Pagan M.D. MEDICAL IMAGING REPORT This report is preliminary unless electronic signature is present EXAM Portable chest 09/15 COMPARISON 09/14 HISTORY Fever, respiratory failure for 5 days. FINDINGS An AP portable view is obtained. Cardiac size is stable. Continued consolidation is seen at the left lung base. Vascular markings are normal. Endotracheal tube, nasoenteric tube and right-sided PICC line remain in good position. CONCLUSION No interim change. Continued left lower lobe consolidation. Dictated by... John Oviedo M.D. THIS IS AN ELECTRONICALLY VERIFIED REPORT John Oviedo M.D. at 09/15/2016 3:37 PM HUMBERTO/fletcher TD: 09/15/2016 12:20 JOB #: [id number] MEDICAL IMAGING REPORT COPY
--- NOTE | ~2016-09-10 | CR72 ---
[facility] A Service of [facility] RADIOLOGY TEXT RESULTS PATIENT: MITCHELL CARMONA LOCATION: [address]15 : [birth year] UNIT #: [id number] AGE: [address]: NESSA GALDAMEZ MD SEX: F ORDER DR: [id number] [facility] [address] [facility]. [place], [place] [address] [id number] I MR#: [id number] #: [id number] NAME: MITCHELL CARMONA : 1960 SEX: F STUDY DATE/TIME: 09/17/2016 5:40 UNIT: [facility] ROOM: [facility] STUDY DESCRIPTION: CR Chest Single View Portable Attending Physician: Nessa Galdamez M.D. Ordering Physician: Marcelina Johnson M.D. Primary Care Physician: Vero Pagan M.D. MEDICAL IMAGING REPORT This report is preliminary unless electronic signature is present EXAM AP portable chest, 09/17/2016 at 05:40. HISTORY Fever, cerebritis, respiratory failure. Symptoms began 09/10/2016. COMPARISON STUDIES AP portable chest, 09/16/2016. FINDINGS Persistent left lower lobe consolidation and small or trace left pleural effusion, not significantly changed. Right lung appears clear. Heart size is mildly enlarged, but stable. Endotracheal tube has been removed. Nasogastric tube and right arm-approach PICC appears unchanged. No visible pneumothorax. Surgical changes of the right humerus. IMPRESSION 1. Persistent left basilar consolidation with probable trace left pleural effusion. 2. Interval removal of the ET tube. 3. Stable mild cardiac enlargement. Dictated by... Ivania Villagomez M.D. THIS IS AN ELECTRONICALLY VERIFIED REPORT Ivania Villagomez M.D. at 09/18/2016 12:12 AM KLEVER/robina TD: 09/17/2016 12:46 JOB #: [id number] [facility] A Service of [facility] RADIOLOGY TEXT RESULTS PATIENT: MITCHELL CARMONA LOCATION: [address]15 : [birth year] UNIT #: [id number] AGE: [address]: NESSA GALDAMEZ MD SEX: F ORDER DR: MEDICAL IMAGING REPORT COPY
--- NOTE | ~2016-09-10 | CR71 ---
[facility] A Service of [facility] RADIOLOGY TEXT RESULTS PATIENT: MITCHELL CARMONA LOCATION: [facility] 332-01 : [birth year] UNIT #: [id number] AGE: [address]: Carissa Donald MD SEX: F ORDER DR: [id number] [facility] [address] [facility]. [place], [place] [address] [id number] I MR#: [id number] Acc #: [id number] NAME: MITCHELL CARMONA : 1960 SEX: F STUDY DATE/TIME: 09/22/2016 7:22 UNIT: [facility] ROOM: [facility] STUDY DESCRIPTION: CR Chest Single View Attending Physician: Carissa Donald M.D. Ordering Physician: Carissa Donald M.D. Primary Care Physician: Vero Pagan M.D. MEDICAL IMAGING REPORT This report is preliminary unless electronic signature is present EXAM Portable chest INDICATION 56-year-old female with shortness of breath, pneumonia for 12 days. COMPARISON Yesterday FINDINGS Improved appearance of the chest with decreased left lung atelectasis or infiltrate. Heart size stable. Stable PICC line. IMPRESSION Decreased left lung atelectasis or infiltrate. Dictated by... Keith Jason M.D. THIS IS AN ELECTRONICALLY VERIFIED REPORT Keith Jason M.D. at 09/23/2016 11:30 AM Renetta TD: 09/22/2016 13:25 JOB #: [id number] MEDICAL IMAGING REPORT Page 1 of 1 COPY
--- NOTE | ~2016-09-10 | CO ---
Unit #: [id number] #: [id number] Patient: MITCHELL CARMONA [id number] [address] [place], [place] [address] [id number] Martin MR#: [id number] NAME: MITCHELL CARMONA ROOM: [facility] Age: 56 Sex: F Admission Date: 09/10/2016 : 1960 Attending Physician: Elmer Chacon M.D. Primary Care Physician: Vero Pagan M.D. Consultation Date: 09/12/2016 CONSULTATION REPORT REASON FOR CONSULTATION Fever with altered mental status. HISTORY OF PRESENT ILLNESS The patient is a 56-year-old female, at this time is intubated, sedated. No family members at the bedside. All of the history is from the chart. She was brought in after being found down started having fever and leukocytosis. Cultures have been negative. She was intubated for airway protection. An MRI of the brain was done, which according to staff who got information from Dr. Yoder that it is showing cerebritis. Infectious Disease consultation was requested. It looks like she had received some doses of Rocephin. As noted above, the patient is intubated, sedated. No family members at the bedside. All of the history is from the chart. PAST MEDICAL HISTORY 1. Scleroderma, on tapering steroids. 2. Hypertension. 3. Gastroesophageal reflux disease. 4. Hyperlipidemia. 5. COPD. 6. Raynaud phenomenon. 7. Depression. 8. Migraines. 9. Subdural hematoma. 10. Bilateral hip surgery. 11. Colostomy with reversal after ruptured diverticulum. 12. Hand surgery. 13. Right shoulder surgery. SOCIAL HISTORY Not available. FAMILY HISTORY Not available. ALLERGIES Morphine, reaction unknown. CURRENT MEDICATIONS List reviewed. Her antimicrobials include acyclovir, which was started last night after I was called and amphotericin B x1 again last night after I was called. It looks like she is on Rocephin and got a dose of vancomycin. Unit #: [id number] #: [id number] Patient: MITCHELL CARMONA PHYSICAL EXAMINATION GENERAL: Intubated. VITAL SIGNS: Temperature 92.8, T-max 100.6, pulse 88, respirations 15, blood pressure 148/92. HEENT: Unremarkable. NECK: Supple. Pupils were dilated. CHEST: Clear to auscultation. HEART: Normal S1, S2. ABDOMEN: Soft and nontender. EXTREMITIES: Shows no edema. Bilateral hip wounds are clean per notes and nursing and Orthopedics. DIAGNOSTIC STUDIES IMAGING STUDIES: MRI of the brain report is pending. Chest x-ray has shown some patchy infiltrates. CT of head was negative for any acute changes. LABORATORY RESULTS: BUN 20, creatinine 1.1, total bilirubin 0.3. AST 27, ALT 19, alkaline phosphatase 130. Ammonia less than 9. Troponin 0.42, BNP 1557. WBC 23.1, hemoglobin 7.7, platelets 305, 94% neutrophils. Urinalysis had some hematuria. Cultures from blood and sputum are negative. On 09/06/2016, urine culture showed Proteus mirabilis sensitive to everything except nitrofurantoin and tetracycline. Urinalysis along with that was unremarkable for any significant pyuria. Nitrite negative. ASSESSMENT 1. Fever. 2. Altered mental status. 3. Leukocytosis. 4. Respiratory failure. 5. History of scleroderma. 6. Cerebritis per verbal report. PLAN At this time, we will cover the patient broadly for possible fungal, viral, atypical bacterial, central nervous system infection. We will get ESR, CRP, C3 and C4 serum fungal serology, serum cryptococcal antigen, CMV serology, and CMV PCR. We will start the patient on ampicillin. Continue vancomycin and Rocephin and acyclovir and also continue with amphotericin liposomal 3 mg/kg IV q.24 hours. Probably needs LP, but she is anticoagulated for the reason that I do not know and her last INR this morning was 3.1. May need to reverse coagulopathy. We will discuss with Dr. Yoder. Further recommendation depending upon the course. On further reviewing the chart and getting history from the staff, the patient had multiple seizures while she was in the emergency room and now, she is on multiple antiepileptic drugs. We will also going to put the patient on droplet isolation. I would like to thank Dr. Yoder for asking us to participate in the care of this patient. We will follow this patient along with you. Dictated by... Verena Sanders/adrian Unit #: [id number] #: [id number] Patient: MITCHELL CARMONA TD: 09/12/2016 11:36 JOB #: [id number] CONSULTATION REPORT X Festus Orellana MD CONSULTATION REPORT
--- NOTE | ~2016-09-10 | EKG ---
PATIENT: MITCHELL CARMONA UNIT #: [id number] Ventricular Rate: 83 BPM Atrial Rate: 83 BPM P-R Interval: 192 ms QRS Duration: 80 ms Q-T Interval: 398 ms QTC Calculation(Bezet): 467 ms P [place]: 51 degrees Calculated R [place]: 55 degrees Calculated T [place]: 25 degrees Diagnosis Line: Sinus rhythm with Premature atrial complexes Diagnosis Line: Low voltage QRS Diagnosis Line: Septal infarct , age undetermined Diagnosis Line: Abnormal ECG Diagnosis Line: When compared with ECG of 13-SEP-2016 06:11, Diagnosis Line: (unconfirmed) Diagnosis Line: Premature atrial complexes are now Present Diagnosis Line: VA interval has decreased Diagnosis Line: Septal infarct is now Present Diagnosis Line: Nonspecific T wave abnormality, improved in Diagnosis Line: Inferior leads Diagnosis Line: T wave inversion less evident in Anterolateral Diagnosis Line: leads Diagnosis Line: Confirmed by DEX FLORES MD ([id number]) on 09/15/2016 Diagnosis Line: 7:34:31 PM INTERPRETING MD: SANDRA PALMER
--- NOTE | ~2016-09-10 | EKG ---
PATIENT: MITCHELL CARMONA UNIT #: [id number] Ventricular Rate: 83 BPM Atrial Rate: 83 BPM P-R Interval: 228 ms QRS Duration: 86 ms Q-T Interval: 394 ms QTC Calculation(Bezet): 462 ms P [place]: 56 degrees Calculated R [place]: 46 degrees Calculated T [place]: 2 degrees Diagnosis Line: Sinus rhythm with 1st degree A-V block Diagnosis Line: Low voltage QRS Diagnosis Line: Nonspecific T wave abnormality Diagnosis Line: Prolonged QT Diagnosis Line: Abnormal ECG Diagnosis Line: When compared with ECG of 12-SEP-2016 05:51, Diagnosis Line: (unconfirmed) Diagnosis Line: No significant change was found Diagnosis Line: Confirmed by DEX FLORES MD ([id number]) on 09/15/2016 Diagnosis Line: 7:21:30 PM INTERPRETING MD: SANDRA PALMER
--- NOTE | ~2016-09-10 | CO ---
Unit #: [id number] #: [id number] Patient: MITCHELL CARMONA [id number] [address] [place], [place] [address] [id number] I MR#: [id number] NAME: MITCHELL CARMONA ROOM: [facility] Age: 56 Sex: F Admission Date: 09/10/2016 : 1960 Attending Physician: Elmer Chacon M.D. Primary Care Physician: Vero Pagan M.D. CONSULTATION REPORT REASON FOR CONSULTATION Critical care management. CHIEF COMPLAINT Altered mental status and seizure. HISTORY OF PRESENT ILLNESS Patient was discharged home after a left hip revision on September 10 and was going home and collapsed and had 2 episodes of seizure. She was given Ativan and currently very obtunded. I am seeing her at the bedside. She is unarousable. REVIEW OF SYSTEMS Unobtainable. PAST MEDICAL HISTORY 1. Hypertension. 2. Gastroesophageal reflux disease. 3. Scleroderma. 4. Hyperlipidemia. 5. COPD. 6. Raynaud. 7. Depression. 8. Migraine headaches. 9. Bilateral hip surgery. 10. Hand surgery. 11. Right shoulder surgery. ALLERGIES Morphine. MEDICATIONS [place], Lipitor, Lopressor, nifedipine, prednisone, Combivent, Wellbutrin, Coumadin, Neurontin, Cymbalta, Lipitor, Keflex, Lasix, melatonin and omeprazole. FAMILY HISTORY None as per records. SOCIAL HISTORY Ex-smoker. No alcohol. No drug abuse. PHYSICAL EXAMINATION VITAL SIGNS: Temperature 98, pulse rate 70, respirations 12, blood Unit #: [id number] #: [id number] Patient: MITCHELL CARMONA pressure 110/70. NEUROLOGIC: Sedated. CVS: S1, S2. RESPIRATORY: Bilateral air entry. Bilateral mild rhonchi. GI: Nontender. Soft. Bowel sounds positive. EXTREMITIES: Trace edema. DIAGNOSTIC STUDIES IMAGING: CT of the head showed generalized atrophy. No acute abnormality. CT angiogram of the head was also done, which showed no carotid stenosis. Left maxillary sinusitis. "Gastroesophageal reflux." Small left-sided effusion with pulmonary emphysema, pulmonary arterial hypertension. Left supraclavicular adenopathy. ASSESSMENT 1. Altered mental status. 2. Seizure disorder. 3. Recent COPD exacerbation. 4. Recent hip surgery. 5. Scleroderma. 6. Gastroesophageal reflux disease. 7. Hypertension. PLAN Continue antiepileptic as per neurology. MRI of the brain has been ordered. Continue oxygen. Continue bronchodilator. Cycle blood gas. Repeat blood gas today. GI and DVT prophylaxis. Monitor electrolytes. May need tube feeds. The patient will be closely monitored. Please see orders for detailed plan. Thank you very much for this consultation. Discussed with the family. NOTE: Total critical care time is 60 minutes in direct critical care of this patient. Dictated by... Verena Bruner/willis TD: 09/11/2016 12:23 JOB #: [id number] CONSULTATION REPORT X Marcelina Johnson MD CONSULTATION REPORT
--- NOTE | ~2016-09-10 | CO ---
Unit #: [id number] #: [id number] Patient: MITCHELL CARMONA [id number] [facility] [address] [facility]. [place], [place] [address] [id number] I MR#: [id number] NAME: MITCHELL CARMONA ROOM: 332 Age: 56 Sex: F Admission Date: 09/10/2016 : 1960 Attending Physician: Joel Walls M.D. Primary Care Physician: Vero Pagan M.D. Consultation Date: 10/07/2016 CONSULTATION REPORT REASON FOR CONSULTATION Depression. HISTORY OF PRESENT ILLNESS Ms. Mitchell Carmona is a 56-year-old female, seen as a followup in room 332 at [facility] on 10/07/2016. The patient lying comfortably in bed, made good eye contact, able to answer questions appropriately. The patient affect was brighter. She reports that she is feeling better. Decrease in depression and anxiety. Tolerating medication fairly well. No agitation. Vital signs stable. REVIEW OF SYSTEMS Complete review of systems unremarkable. MENTAL STATUS EXAMINATION General appearance, the patient dressed casually. Attention span and concentration, fair. Speech, regular rate and coherent. Oriented in time, place, and person. Mood and affect were brighter, made good eye contact. Thought process, coherent. Thought content, the patient denied any thoughts of harming self or others. Recent and remote memory, fair. Language, able to name object and repeat phrases. Fund of knowledge, fair. Insight and judgment, fair to slightly impaired. DIAGNOSIS Psychiatric: Major depressive disorder, recurrent, severe, F33.2. ASSESSMENT AND PLAN 1. Supportive psychotherapy and psychoeducation provided to the patient. 2. Educated about benefits and side effects of medication and course and prognosis of illness. 3. Advised to continue with current medication. The patient is currently on Zyprexa 5 mg at bedtime. If needed, consider further adjustment of medication. The patient is also on Cymbalta 30 mg daily. Please feel free to call if any questions, telephone #[phone]. Dictated by... Verena Suarez/adrian TD: 10/08/2016 22:43 JOB #: [id number] Unit #: [id number] #: [id number] Patient: MITCHELL CARMONA CONSULTATION REPORT Page 1 of 1 X Felipe Wills MD CONSULTATION REPORT
--- NOTE | ~2016-09-10 | CR72 ---
[facility] A Service of [facility] RADIOLOGY TEXT RESULTS PATIENT: MITCHELL CARMONA LOCATION: [facility] 332-01 : [birth year] UNIT #: [id number] AGE: [address]: Carissa Donald MD SEX: F ORDER DR: [id number] [facility] [address] [facility] [address] [place], [place] [address] [id number] I MR#: [id number] #: [id number] NAME: MITCHELL CARMONA : 1960 SEX: F STUDY DATE/TIME: 09/25/2016 9:20 UNIT: [address] ROOM: [facility] STUDY DESCRIPTION: CR Chest Single View Portable Attending Physician: Carissa Donald M.D. Ordering Physician: Carissa Donald M.D. Primary Care Physician: Vero Pagan M.D. MEDICAL IMAGING REPORT This report is preliminary unless electronic signature is present EXAM Portable chest 09/25 COMPARISON 09/22 HISTORY History supplied is shortness of breath, pneumonia, found down 15 days ago. FINDINGS An AP view is obtained. Cardiac size in the patient appears enlarged. There continues to be infiltrate and pleural fluid at the left base. There is mild passive congestion. Right-sided PICC line terminates in the SVC. CONCLUSION Continued atelectasis and pleural fluid at the left base. Overall this has improved slightly. Continued cardiomegaly with mild passive congestion. Dictated by... John Oviedo M.D. THIS IS AN ELECTRONICALLY VERIFIED REPORT John Oviedo M.D. at 09/28/2016 2:43 PM Radha TD: 09/25/2016 11:20 JOB #: [id number] MEDICAL IMAGING REPORT Page 1 of 1 COPY
--- NOTE | ~2016-09-10 | FU ---
[facility] DATE: 10/05/16 Patient: MITCHELL CARMONA Physician: AJ Address: [address] [facility] Room/Bed: [address], Zip: [place] [address] Admit Date: 09/10/16 Date of : [birth year] Height: 5 7 Weight: 176 80 NUTRITION MONITORING/FOLLOW-UP: Reason: Nutrition follow up Anthropometrics: Wt 10/05: 80 kg Labs: BUN 39 Accuchecks 80-106 GFR 51.2 Meds: Zofran, NaCl, prednisone, protonix, lipitor, colace I&O's: 1680/3802, last BM 10/05 Skin: Pressure ulcer to left elbow, no other changes noted Edema: 1+ left arm Trace- right and left ankles and feet Generalized left lip Diet: Regular diet Assessment: Chart reviewed, events noted. Pt's diet has been advanced to regular consistencies with thin liquids. RD spoke with the pt at bedside. Pt reports that she has a good appetite, consuming at least 50% of meals. Pt reports that the Ensure supplements previously ordered caused her to have diarrhea. RD discussed the importance of adequate protein-calorie intake with the pt, and she voiced understanding. Pt denied having any questions regarding nutrition at this time. Previous nutrition diagnosis resolved. See new diagnosis. Dx: Suboptimal energy intake RT recent diet advancement, wound AEB pt reported 50% intake of meals, pressure ulcer to elbow. Intervention: 1. Regular diet Monitoring, Evaluation and Goals: 1. Oral intake; tolerate >50%-75% of meals 2. Labs; WNL 3. Weight; prevent unintentional weight loss 4. Skin; promote healing Recommendations: 1. Continue regular diet as tolerated. [facility] DATE: 10/05/16 Patient: MITCHELL CARMONA Physician: AJ Address: [address] [facility] Room/Bed: [address] [place] [address], Zip: [place] [address] Admit Date: 09/10/16 Date of : [birth year] Height: 5 7 Weight: 176 80 2. Appreciate staff and family encouraging adequate protein intake as needed. Status: Pt is at mild-moderate nutritional risk. Respectfully, WILLIE PULIDO, RD, LD [facility] cc: client file
--- NOTE | ~2016-09-10 | CO ---
Unit #: [id number] #: [id number] Patient: MITCHELL CARMONA [id number] [address] [place], [place] [address] [id number] I MR#: [id number] NAME: MITCHELL CARMONA [facility]OM[facility] Age: 56 Sex: F Admission Date: 09/10/2016 : 1960 Attending Physician: Carissa Donald M.D. Primary Care Physician: Vero Pagan M.D. CONSULTATION REPORT REASON FOR CONSULTATION Anemia. HISTORY OF PRESENTING ILLNESS The patient actually initially presented on 09/10/2016 with altered mental status and recurrent seizures. She has since been worked up with Neurology and since her admission, her hemoglobin has steadily dropped to a low of 7.3 and 2 days ago, it was actually 8.2. Today, she has had multiple positive occult stools. She reports having had a colonoscopy just recently at [facility]. She is unsure if she has had an EGD, however, she does report having significant history of diverticulosis for which she had a colon resection in the past. Denies any overt blood in stool. No bright blood. However, she has been having recurrent diarrhea. C difficile has been negative on 2 separate occasions during this hospitalization. Denies any abdominal pain. Her really only complaint is the diarrhea or loose stool. Tolerating p.o. Denies any nausea or vomiting. PAST MEDICAL HISTORY Hypertension, GERD, scleroderma, hyperlipidemia, COPD, Raynaud's, depression and migraine headaches, previous subdural about 5 months ago at [place], bilateral hip surgery, colostomy with reversal for a ruptured diverticulum, hand surgery, right shoulder surgery. ALLERGIES Morphine. HOME MEDICATIONS [place], Zyrtec, Lipitor, Lopressor, nifedipine XL, prednisone taper, Combivent, Wellbutrin, Coumadin, Neurontin, Cymbalta, Lipitor, Keflex, Lasix, guaifenesin, melatonin, aspirin, and omeprazole. FAMILY HISTORY Reviewed and noncontributory. SOCIAL HISTORY The patient lives with her son. She no longer drinks or smokes. REVIEW OF SYSTEMS A complete 10-point review of systems was completed and negative except as mentioned in the HPI. PHYSICAL EXAMINATION GENERAL: The patient is a pleasant 56-year-old female, Unit #: [id number] #: [id number] Patient: MITCHELL CARMONA currently in no acute distress. VITAL SIGNS: Temperature 98.6, pulse is 52, respirations 20, blood pressure is 136/86. HEENT: PERRLA. NECK: Supple. CARDIAC: S1, S2. LUNGS: Clear to auscultation. ABDOMEN: Soft, rounded, nontender. Positive bowel sounds. NEUROLOGIC: The patient is alert, awake, and oriented. DIAGNOSTIC STUDIES LABORATORY RESULTS: Again today's hemoglobin is 8.2, hematocrit 26.2, platelets are 319, white count is 13.2. BUN and creatinine are 30 and 1.3 respectively, iron 17, TIBC is 234, ferritin is 80, transferrin is 167. Again occult stools have come back positive. ASSESSMENT AND PLAN 1. Anemia. We will attempt to obtain previous colonoscopy report from [facility]. Continue to monitor H and H. Continue PPI therapy. Transfuse as needed. We will plan esophagogastroduodenoscopy for the morning to rule out any peptic ulcer disease versus others. Further recommendations to follow scope. 2. Recurrent seizures. 3. Hypertension. 4. Chronic obstructive pulmonary disease. Thank you for this interesting consult. We will continue to follow along. Dictated by... Courtney Guillen, A.P.R.N. for Damon Perera M.D. MASON/adrian TD: 09/29/2016 04:57 JOB #: [id number] CONSULTATION REPORT Page 1 of 1 X X CONSULTATION REPORT
--- NOTE | ~2016-09-10 | CR72 ---
[facility] A Service of [facility] & [facility] RADIOLOGY TEXT RESULTS PATIENT: MITCHELL CARMONA LOCATION: [address] : [birth year] UNIT #: [id number] AGE: [address]: Elmer Chacon MD SEX: F ORDER DR: [id number] [facility] [address] [facility]. [place], [place] [address] [id number] I MR#: [id number] Acc #: [id number] NAME: MITCHELL CARMONA : 1960 SEX: F STUDY DATE/TIME: 09/13/2016 5:12 UNIT: [facility] ROOM: [facility] STUDY DESCRIPTION: CR Chest Single View Portable Attending Physician: Elmer Chacon M.D. Ordering Physician: Marcelina Johnson M.D. Primary Care Physician: Vero Pagan M.D. MEDICAL IMAGING REPORT This report is preliminary unless electronic signature is present EXAM Frontal chest 09/13/2016. INDICATIONS Shortness of air. ET tube placement. Seizures. Symptoms for 3 days. Hypertension. COMPARISON Frontal chest compared with 09/11/2016. FINDINGS ET tube tip in good position above the ajay. Right-sided PICC line is at the distal SVC level. Enteric tube tip below the diaphragm and not in the field of view. Cardiac silhouette is borderline in size and stable. There is a left-sided effusion with retrocardiac atelectasis or pneumonia. Hazy interstitial opacities in the right lung base. There is bronchovascular crowding versus mild central vascular congestion. No pneumothorax. Screw and plate fixation of the right humerus. IMPRESSION 1. Tubes and lines in satisfactory position to the extent visualized. No pneumothorax. 2. Borderline cardiac size and probable mild vascular congestion. 3. Retrocardiac atelectasis or infiltrate and superimposed left-sided effusion. Dictated by... Armand Everett M.D. THIS IS AN ELECTRONICALLY VERIFIED REPORT Armand Everett M.D. at 09/13/2016 2:02 PM [facility] A Service of [facility] RADIOLOGY TEXT RESULTS PATIENT: MITCHELL CARMONA LOCATION: [facility]3-15 : [birth year] UNIT #: [id number] AGE: [address]: Elmer Chacon MD SEX: F ORDER DR: Esther TD: 09/13/2016 13:38 JOB #: [id number] MEDICAL IMAGING REPORT COPY
--- NOTE | ~2016-09-10 | CR72 ---
[facility] A Service of [facility] & [facility] RADIOLOGY TEXT RESULTS PATIENT: MITCHELL CARMONA LOCATION: [address] : [birth year] UNIT #: [id number] AGE: [address]: Carissa Donald MD SEX: F ORDER DR: [id number] [facility] [address] [place], [place] [address] [id number] I MR#: [id number] Acc #: [id number] NAME: MITCHELL CARMONA : 1960 SEX: F STUDY DATE/TIME: 09/11/2016 14:51 UNIT: [facility] ROOM: [facility] STUDY DESCRIPTION: CR Chest Single View Portable Attending Physician: Elmer Chacon M.D. Ordering Physician: Marcelina Johnson M.D. Primary Care Physician: Vero Pagan M.D. MEDICAL IMAGING REPORT This report is preliminary unless electronic signature is present EXAM Portable chest x-ray 09/11/2016 HISTORY Post endotracheal tube placement. FINDINGS AP radiograph of the chest is presented. Comparison 09/10/[address] 02/14/2010. Endotracheal tube terminates 4.2 cm above the ajay. The nasogastric tube has an unusual course projecting over the left paramedian thorax. It projects diagonally across the trachea and left mainstem bronchus. Given the patient's mild thoracolumbar scoliosis, a mild right anterior oblique projection and the course of the esophagus on prior chest CT, I favor that the tube is within the esophagus. The side port terminates about 3 cm above the level of the diaphragm. The tip of the enteric tube is immediately beyond the level of gastroesophageal junction. For placement of sideport within xjd-rm-jfijxk stomach, the tube should be advanced about 10-15 cm and reassessed radiographically. This tube positioning was discussed with patient's primary care nurse Kimberly at time of this dictation. Primary care nurse indicates that gastric fluid-like contents are being aspirated from the tube further supporting that it is within the distal esophagus and proximal stomach. Stable cardiac enlargement. The lungs are well inflated. Patchy and linear/band-like densities in the left retrocardiac region are nonspecific and may reflect components of atelectasis and pneumonitis/developing pneumonia. No dense airspace disease, no pleural effusion or pneumothorax. There is mild underlying vascular congestion. Subtle increase in linear interstitial densities in the periphery of the lungs may be a reflection of borderline interstitial edema. No suspicious pulmonary nodule. [facility] A Service of [facility] RADIOLOGY TEXT RESULTS PATIENT: MITCHELL CARMONA LOCATION: [address] : [birth year] UNIT #: [id number] AGE: [address]: Carissa Donald MD SEX: F ORDER DR: Dictated by... John Moser M.D. THIS IS AN ELECTRONICALLY VERIFIED REPORT John Moser M.D. at 09/21/2016 2:12 PM FILOMENA/stan TD: 09/12/2016 04:23 JOB #: [id number] MEDICAL IMAGING REPORT COPY
--- NOTE | ~2016-09-10 | FU ---
[facility] Nutrition Therapy DATE: 09/18/16 Patient: MITCHELL CARMONA Physician: AJ Address: [address] [place] [address] Room/Bed: [address], Zip: [place] [address] Admit Date: 09/10/16 Date of : 64 Height: 5 7 Weight: 201 91.5 NUTRITION MONITORING/FOLLOW-UP: Reason: TF f/u Anthropometrics: HT: 5'11", Adm WT: 80 kg (176#) BMI: 24.6 WT: 91.5 kg (201#) Labs: Gluc 118, BUN 34, Ca++ 7.9, Alb 3.0 GFR 55 Meds: Versed, Lopressor, Lipitor, D5%, Mg/K, Phenytoin (IV), D10%, Colace, Solu-Medrol, Furosemide I&O's: 4161/7501, LBM 09/18 Skin: no changes Edema: L hand/arm, trunk/hips, upper legs (generalized) Estimated Nutrition Needs: 2000 - 2400 kcal (25-30 kcal/kg) 96 - 120 grams protein (1.2-1.5 g/kg) Assessment: Chart reviewed, events noted. RN reports pt is tolerating tube feeds well, running at goal rate of 65 mL/hr. Residuals ranged from 20 - 140 mL last night based on shift assessment. Per pump history, pt has recieved 94% of volume of enteral feeds over the past 24 hours. Pt was extubated 09/16. Dx: Inadequate protein-energy intake RT clinical condition AEB NPO status, need for enteral nutrition. RESOLVED -Inadequate oral intake RT clinical condition AEB enteral nutrition support, NPO status. ACTIVE Intervention: 1. Enteral nutrition Monitoring, Evaluation and Goals: 1. Enteral nutrition; provide ~80-100 estimated energy needs 2. Labs; WNL: Glu, Ca++, Alb 3. Weight; prevent unintentional weight loss Recommendations: 1. Continue Jevity 1.5 @ 65 mL/hr as tolerated. [facility] Nutrition Therapy DATE: 09/18/16 Patient: MITCHELL CARMONA Physician: AJ Address: [address] [place] [address] Room/Bed: [address], Zip: [place] [address] Admit Date: 09/10/16 Date of : 64 Height: 5 7 Weight: 201 91.5 2. Once appropriate, recommend SUSTAINMENT LOGISTICS ANALYST evaluation. Advance diet per SUSTAINMENT LOGISTICS ANALYST recommendations + HH diet restriction. 3. If diet advances and pt is consuming at least 50% of meals, discontinue enteral nutrition. Status: Pt is at moderate nutritional risk. RD will f/u per protocol. Respectfully, KIM DEWEY, Barn Boss Carmen Ott RD, LD Food and Nutritional Services [facility] cc: client file
--- NOTE | ~2016-09-10 | EE ---
Unit #: [id number] #: [id number] Patient: MITCHELL CARMONA [id number] [address] [address] [id number] I MR#: [id number] NAME: MITCHELL CARMONA : 1960 SEX: F STUDY DATE/TIME: 09/11/2016 UNIT: [facility] ROOM: [facility] STUDY DESCRIPTION: Attending Physician: Elmer Chacon M.D. Referring Physician: Cheyenne Andre M.D. Primary Care Physician: Vero Pagan M.D. NEURODIAGNOSTICS REPORT EXAM EEG. REASON FOR THE STUDY Recurrent seizures. EEG DESCRIPTION This is an inpatient, portable, digitally recorded, multimontage adult EEG with leads placed according to the International 10/20 System. Hyperventilation and photic stimulation were not done. This EEG shows mostly 5 to 7 Hz diffuse background slowing. The patient did become drowsy and later on stage 2 sleep was seen. Hyperventilation and photic stimulation was not done. Occasional muscle twitch was seen but I really did not see anything suggesting interictal discharges, focal changes, seizure or status epilepticus. IMPRESSION Abnormal EEG showing mild diffuse slowing which is indicative of encephalopathy but importantly nothing suggesting seizure or status was seen. Clinical correlation is recommended. Dictated by... Verena Hylton/tata TD: 09/12/2016 08:45 JOB #: [id number] Unit #: [id number] #: [id number] Patient: MITCHELL CARMONA NEURODIAGNOSTICS REPORT X Courtney Yoder MD NEURODIAGNOSTICS REPORT
--- NOTE | ~2016-09-10 | HP ---
Unit #: [id number] #: [id number] Patient: MITCHELL CARMONA [id number] [facility] [place], [place] [address] [id number] I MR#: [id number] NAME: MITCHELL CARMONA ROOM: [facility] Age: Sex: F Admission Date: 09/10/2016 : 1960 Attending Physician: Cheyenne Andre M.D. Primary Care Physician: Vero Pagan M.D. HISTORY AND PHYSICAL ADDENDUM Patient had a third seizure in the ER. I called Dr. Yoder and discussed the case with him. He has suggested Vimpat to be added to the Keppra and, if necessary, Cerebyx if the patient continues to have seizures. I went back and spoke with the patient's daughter. The daughter states the patient had been admitted to [facility] x2. The first time was for a subdural hematoma and she did have seizures during that admission. Also, was recently admitted to [facility] and had to be sedated with Ativan or some medication for seizures as well. Therefore, the information that the son initially gave me that the patient does not have a history of seizures sounds to be incorrect that she does have events and has been admitted to [facility] over the past year for seizures. We will be obtaining records from [facility]. She does not drink alcohol nor does she take any benzos according to daughter. Dictated by Verena Walker/china TD: 09/11/2016 06:22 JOB #: [id number] HISTORY AND PHYSICAL X Cheyenne Andre MD HISTORY AND PHYSICAL
--- NOTE | ~2016-09-10 | FU ---
[facility] Nutrition Therapy DATE: 09/29/16 Patient: MITCHELL CARMONA Physician: AJ Address: [address] [facility] Room/Bed: [address] [place] [address], Zip: [place] [address] Admit Date: 09/10/16 Date of : [birth year] Height: 5 7 Weight: 182 83 NUTRITION MONITORING/FOLLOW-UP: Reason: Nutrition follow up Anthropometrics: Ht: 5'11" Adm wt: 80 kg BMI: 24.6 Wt 09/29: 83 kg Labs: K+ 5.2 Gluc 52 BUN 30 Accuchecks 26-79 GFR 46.5 Meds: D5%, NaCl, prednisone, protonix, lipitor, colace I&O's: 960/900, last BM 09/28 Skin: Redness (not open) to sacrum/ coccyx Closed surgical incision left hip Scabs BLE/ fingers Scars/ discoloration BLE Edema: Generalized- ROBERT/ BLE/ upper legs Pedal/ ankle 1+ Diet: Mechanical chop with nectar thick liquids Assessment: Chart reviewed, events noted. Per RN report, pt was scheduled for an EGD this AM for anemia. Pt was taken to have the procedure then refused to have it done. The pt was NPO starting at midnight last night for the scope, and diet has been resumed today. RN reports that the pt has had poor intake, with only bites of her meals for the past couple of days. Pt continues to be confused, and is refusing medications per RN report. RD previously ordered the pt vanilla Ensure pudding, and will re-oder, as the order in no longer in [facility]. It seems that the pt's confusion is likely the cause of her poor intake. Of note, the pt's weights are trending up if weights in [facility] are accurate. The pt's blood sugars have been low, with accuchecks ranging from 26-79. Per RN report, the pt is not appropriate for diet education. Please see recommendations below. Dx: Inadequate protein-energy intake RT clinical condition AEB RN report of the pt having poor intake, low blood sugars- ACTIVE Intervention: 1. Diet per ASSEMBLER FOR PULLER OVER MACHINE 2. Ensure pudding TID Monitoring, Evaluation and Goals: [facility] Nutrition Therapy DATE: 09/29/16 Patient: MITCHELL CARMONA Physician: AJ Address: [address] [facility] Room/Bed: [address] [place] [address], Zip: [place] [address] Admit Date: 09/10/16 Date of : 64 Height: 5 7 Weight: 182 83 1. Oral intake; tolerate >50-75% of meals and supplements 2. Labs; WNL 3. Weight; prevent unintentional weight loss 4. Skin; prevent further breakdown, promote healing Recommendations: 1. Recommend ASSEMBLER FOR PULLER OVER MACHINE re-evaluation to determine least restrictive diet tolerated by the pt, as the pt's intake may improve with a less restrictive diet. Advance diet per ASSEMBLER FOR PULLER OVER MACHINE recommendations. 2. Ensure vanilla pudding TID with all meals for supplemental nutrition- RD will re-order. 3. If the pt's intake does not improve, may consider obtaining short-term enteral access and initiating enteral nutrition. RD will continue to follow. Status: Pt is at moderate nutritional risk. Respectfully, WILLIE PULIDO RD, LD Food and Nutritional Services [facility] cc: client file
--- NOTE | ~2016-09-10 | FU ---
[facility] Nutrition Therapy DATE: 09/15/16 Patient: MITCHELL CARMONA Physician: AJ Address: [address] [place] [address] Room/Bed: [address], Zip: [place] [address] Admit Date: 09/10/16 Date of : [birth year] Height: 5 7 Weight: 207 94 NUTRITION MONITORING/FOLLOW-UP: Reason: Nutrition follow up Anthropometrics: Ht: 5'11" Adm wt: 80 kg BMI: 24.6 Wt 09/15: 94 kg Labs: Gluc 120 Ca++ 7.7 Alb 2.7 Accuchecks 127 BNP 667 Meds: Versed, lopressor, lipitor, D5%, MgSO4, KCl, phenytoin (IV), protonix, solu-medrol, colace I&O's: 5933/2681, last BM 09/14 Skin: Reviewed. No changes noted. Edema: Generalized 1+ Estimated Nutrition Needs: 6743-3722 kcals (25-30 kcals/kg) 96-120 grams protein (1.2-1.5 grams/kg) Assessment: Chart reviewed, events noted. Pt is now intubated and sedated in the ICU. Pt is receiving enteral nutrition with Jevity 1.5 @ 40 mL/hr, which is ordered to gradually be increased to goal of 65 mL/hr. Per pump history, the pt has received 27% of goal volume over the past 24 hrs. Please see recommendaitons below. Nutrition diagnosis remains active. Dx: Inadequate protein-energy intake RT clinical condition AEB NPO status, need for enteral nutrition- ACTIVE Intervention: 1. Enteral nutrition Monitoring, Evaluation and Goals: 1. Enteral nutrition; provide >80% goal volume x 24 hrs 2. Labs; WNL 3. Weight; prevent unintentional weight loss 4. Skin; prevent breakdown Recommendations: 1. Increase Jevity 1.5 by 10 mL q 8 hrs as tolerated to goal of 65 mL/hr to provide: [facility] Nutrition Therapy DATE: 09/15/16 Patient: MITCHELL CARMONA Physician: AJ Address: [address] [facility] Room/Bed: [address], Zip: [place] [address] Admit Date: 03/09/17 Date of : 64 Height: 5 7 Weight: 158 97 7321 kcals/ 100 grams protein/ 1186 mL free H20 2. If the pt is extubated, recommend PERMIT REVIEW ASSISTANT evaluation and diet advancement per PERMIT REVIEW ASSISTANT as appropriate. Pt would benefit from heart healthy diet restriction. Status: Pt is at moderate-severe nutritional risk. RD will continue to follow. Respectfully, WILLIE PULIDO RD, LD Food and Nutritional Services [facility] cc: client file
--- NOTE | ~2016-09-10 | CR6 ---
[facility] A Service of [facility] & [facility] RADIOLOGY TEXT RESULTS PATIENT: MITCHELL CARMONA LOCATION: [address] : [birth year] UNIT #: [id number] AGE: [address]: Elmer Chacon MD SEX: F ORDER DR: [id number] [facility] [address] [facility]. [place], [place] [address] [id number] I MR#: [id number] Acc #: [id number] NAME: MITCHELL CARMONA : 1960 SEX: F STUDY DATE/TIME: 09/11/2016 17:41 UNIT: [facility] ROOM: [facility] STUDY DESCRIPTION: CR Abdomen Portable Sng View Attending Physician: Elmer Chacon M.D. Ordering Physician: Elmer Chacon M.D. Primary Care Physician: Vero Pagan M.D. MEDICAL IMAGING REPORT This report is preliminary unless electronic signature is present EXAM AP abdomen. HISTORY NG tube placement today. Fell yesterday. FINDINGS NG tube extends to the left lower quadrant, with its tip 18 cm beyond the EG junction at the level of the mid stomach. Moderate amount of stool in partly visualized colon. Exam does not include the right lateral abdomen or lower pelvis. Partly visualized left hip prosthesis. IMPRESSION NG tube tip at the level of the mid stomach in the left lower quadrant 18 cm beyond the EG junction. Dictated by... Anmol Moeller M.D. THIS IS AN ELECTRONICALLY VERIFIED REPORT Anmol Moeller M.D. at 09/12/2016 10:41 PM DFL/china TD: 09/12/2016 13:32 JOB #: [id number] MEDICAL IMAGING REPORT COPY
--- NOTE | ~2016-09-10 | TOC ---
Unit #: [id number] #: [id number] Patient: MITHCELL CARMONA [id number] [address] [place], [place] [address] [id number] I MR#: [id number] NAME: MITCHELL CARMONA ROOM: 332 Age: 56 Sex: F Admission Date: 09/10/2016 : 1960 Attending Physician: Carissa Donald M.D. Primary Care Physician: Vero Pagan M.D. TRANSFER OF CARE SUMMARY DISCHARGE DIAGNOSES 1. Acute hypoxic respiratory failure. 2. Status epilepticus. 3. Cerebritis. 4. History of scleroderma with systemic involvement. 5. History of subdural hematoma. 6. MRSA pneumonia. 7. Hypoglycemia. 8. Moderate protein malnutrition. 9. Acute nbl-VJ-jfznzsfyt myocardial infarction. 10. Anemia. Patient refused EGD. Iron-deficiency with guaiac positive. 11. Hypertension. 12. Gastroesophageal reflux disease. 13. Hyperlipidemia. 14. Chronic obstructive pulmonary disease. 15. Depression. 16. Migraine headaches. 17. Chronic obstructive pulmonary disease with exacerbation. 18. Recent hip surgery. CONSULTANTS 1. Dr. Orellana. 2. Dr. Wills. 3. Dr. Yoder. 4. Dr. Johnson. PROCEDURES None. DIAGNOSTIC STUDIES LABORATORY: Glucose 152, sodium 135, potassium 4.0, creatinine 1.0. WBC 10.4, hemoglobin 9.0, platelets 314. Blood cultures negative. Occult blood positive. C difficile negative. IMAGING: Chest x-ray shows atelectasis with mild pleural effusion. Ultrasound of the left upper extremity negative for DVT. HOSPITAL COURSE This 56-year-old was admitted on 09/10/2016 for change in mental status. 1. Change in mental status. Patient was seen by Neurology. The patient had recurrent seizures. Status epilepticus has been diagnosed. IV Keppra, IV Vimpat, Dilantin, phenytoin has been started. The patient is following with Dr. Yoder. The patient had MRI of the brain on Unit #: [id number] #: [id number] Patient: MITCHELL CARMONA 09/11/2016 which shows extensive abnormal FLAIR and T2 signal throughout the right hemisphere with local mass effect including sulcal effacement. No ventricular compression. Findings do not suggest acute ischemia. Most typical suggestive of acute cerebritis, so cerebritis has been diagnosed. The patient was started prednisone high dose. Currently, she is seizure-free but she is confused, alert and oriented times 2 only but intermittently more confused and agitated. The patient was also seen by Dr. Wills. The patient needs rehab but she cannot financially afford it. Waiting on a rehab placement. 2. MRSA pneumonia with acute respiratory failure, hypoxic. The patient completed her antibiotics. 3. Anemia with guaiac positive. The patient was seen by gastroenterology, Dr. Perera. Patient refused EGD. Current hemoglobin is stable. 4. Acute rlf-IG-kqyralwoq WI with troponin maximum elevation of 0.61. The patient was seen by Cardiology, Dr. Bledsoe. It is a type 2 vbk-JW-hmffbzgvw WI. Continue with medical management. No intervention as per Cardiology. Currently, is on aspirin and Lipitor. 5. Hypertension, well controlled. 6. Scleroderma, most likely with systemic sclerosis involving her brain according Dr. Yoder. Continue with steroids high dose for a total of 3 weeks. 7. Moderate protein malnutrition. Cow Puncher has been consulted. 8. Hypoglycemia during hospital course, replaced with glucose. Currently blood sugars are stable. 9. Discussed with son. 10. Patient needs rehab but patient could not financially afford it. We are waiting on placement for her. Dictated by... Carissa Donald M.D. LACEY/lizzie TD: 10/01/2016 21:13 JOB #: [id number] TRANSFER OF CARE SUMMARY Page 1 of 1 X Carissa Donald MD X TRANSFER OF CARE SUMMARY
--- NOTE | ~2016-09-10 | DS ---
Unit #: [id number] #: [id number] Patient: MITCHELL CARMONA [id number] [address] [place], [place] [address] [id number] I MR#: [id number] NAME: MITCHELL CARMONA ROOM: 332 Age: 56 Sex: F Admission Date: 09/10/2016 : 1960 Discharge Date: Attending Physician: Joel Walls M.D. Primary Care Physician: Vero Pagan M.D. DISCHARGE SUMMARY ADDENDUM NOTE This is an addendum to a transfer of care [facility] dictated by Dr. Carissa Donald and that job number is [id number]. HOSPITAL COURSE Patient was evaluated by Dr. Donald on 10/02/16. At the time of her dictation as above she was waiting on rehab. At that time patient required rehab as she was not in physical condition for return home. It appears that there were financial issues and that all rehab facilities had refused her for admission. The patient's IV fluids and Ativan were discontinued on that date. She has since continued to be followed by Dr. Johnson with pulmonary service, Dr. Walls, hospitalist and Dr. Diaz for infectious disease service and all of her antibiotics have been discontinued. The patient was evaluated by Marvin Encinas with the orthopedic service today. Written orders today are that she is to follow up with Dr. Rolle in two weeks and that she is to have daily dressing changes. The patient's vital signs and labs have remained stable. She was evaluated by Dr. Walls today and cleared for discharge to [facility] where she has been accepted and has a bed available today for rehab services. DIAGNOSTIC STUDIES LABORATORY: Today WBC 11.4, hemoglobin 7.6, hematocrit 24.0, platelets 206,000 and sodium 136, potassium 4.6, chloride 105, CO2 23, glucose 80, BUN 30, creatinine 1.1, calcium 8.5, Accu-Cheks stable. Meningoencephalitis comprehensive panel: Antibody not detected. The results of this report were discussed with Carmen Kline A.P.R.N. of the neurology service. CONDITION Stable. DISPOSITION [facility]. DISCHARGE MEDICATIONS 1. Combivent unit dose 3 mL inhaled q.i.d. 2. Prednisone 20 mg p.o. t.i.d. Please note the patient is to continue this medication until advised otherwise by her neurologist with whom she is established (per Cornel Powers.P.R.N.) for further evaluation and management of her neurologic condition. 3. Tylenol 650 mg p.o. q.6 h. p.r.n. temperature greater than 101 Unit #: [id number] #: [id number] Patient: MITCHELL CARMONA. 4. Lovenox 40 mg subcu daily, 5. Vimpat 100 mg p.o. q.12 h. Prescription written by Carmen Kline, Cornel.P.R.N., #60, no refills. 6. Cymbalta 30 mg p.o. daily. 7. Vistaril 25 mg p.o. t.i.d. p.r.n. anxiety. 8. Nicotine transdermal patch 14 mg q.a.m. 9. Bystolic 10 mg p.o. b.i.d. Hold for systolic blood pressure less than 100 mmHg or heart rate less than 60 per minute. 10. Norvasc 10 mg p.o. daily. 11. Cardizem 60 mg p.o. q.6 h. 12. Bisacodyl suppository 10 mg p.r.n. daily for constipation. 13. Colace 100 mg p.o. daily. 14. Milk of magnesia 30 mL p.o. q.6 h. p.r.n. for constipation. 15. Lipitor 20 mg p.o. daily. 16. Dilantin capsules 300 mg p.o. daily. 17. Catapres 0.1 mg p.o. daily. Hold for systolic blood pressure less than 100. 18. Hydralazine 50 mg p.o. t.i.d. 19. Melatonin 5 mg p.o. q.p.m. 20. Aspirin 81 mg p.o. daily. 21. Hydrocodone and APAP 5/325 mg tab one p.o. t.i.d. p.r.n. moderate pain. Prescription written by Dr. Chacon, #15, no refills. 22. Protonix 40 mg p.o. b.i.d. 23. Zyprexa 5 mg p.o. q.h.s. 24. O2 at 2 L per minute per nasal cannula continuously (patient wears this at home). DIET Regular with encouragement for adequate protein intake as needed. Speech Therapy recommendations: Thin liquids, regular consistency diet. Upright for all oral intake. No straws. Aspiration precautions and any other dietary restrictions as ordered. DISCHARGE DIAGNOSES 19. Pressure ulcer left elbow. WOUND CARE Recommendation for total care support bed and Mepilex dressing to left elbow daily. This patient's transfer and discharge has been discussed with Loraine, the acute care surgeon, as well as Dr. Walls. Dictated by... Avril Zhao A.P.R.N. for Verena Maravilla/mathew TD: 10/07/2016 15:25 JOB #: [id number] Unit #: [id number] #: [id number] Patient: MITCHELL CARMONA DISCHARGE SUMMARY Page 1 of 1 X Avril Zhao APRN DISCHARGE SUMMARY
--- NOTE | ~2016-09-10 | CR206 ---
[facility] A Service of [facility] & [facility] RADIOLOGY TEXT RESULTS PATIENT: MITCHELL CARMONA LOCATION: [address] : [birth year] UNIT #: [id number] AGE: [address]: Elmer Chacon MD SEX: F ORDER DR: [id number] [facility] [address] [place], [place] [address] [id number] MR#: [id number] #: [id number] NAME: MITCHELL CARMONA : 1960 SEX: F STUDY DATE/TIME: 09/11/2016 17:43 UNIT: [facility] ROOM: [facility] STUDY DESCRIPTION: CR Pelvis 1 or 2 Views Attending Physician: Elmer Chacon M.D. Ordering Physician: Elmer Chacon M.D. Primary Care Physician: Vero Pagan M.D. MEDICAL IMAGING REPORT This report is preliminary unless electronic signature is present EXAM AP pelvis, 09/11/2016. HISTORY Left hip pain status post fall yesterday. Left hip revision, 09/07/2016. Evaluate for fracture. FINDINGS A single AP view of the pelvis was obtained and is centered low with the iliac wings incompletely visualized. Bilateral hip prostheses appear well seated. No fracture or dislocation is seen. The bones are osteopenic. Surgical vinod overlie the operative site laterally. IMPRESSION Bilateral hip prostheses. No evidence of fracture or dislocation. Dictated by... Arron Blanco M.D. THIS IS AN ELECTRONICALLY VERIFIED REPORT Arron Blanco M.D. at 09/12/2016 3:25 PM KRT/china TD: 09/12/2016 13:13 JOB #: [id number] MEDICAL IMAGING REPORT COPY
[2016-09-10 20:27] LABS: BASOPHIL% 0.1 % (0-2.5); HEMATOCRIT 26.9 % (35.0-45.0); HEMOGLOBIN 8.7 gm/dL (12.0-16.0); LYMPHOCYTE# 0.7 X10e3 (1.0-3.5); MEAN CELL VOLUME 83.1 FL (83-96); MEAN CORPUSCULAR HGB CONC 32.4 g/dL (30-36); MEAN PLATELET VOLUME 6.7 FL (6.5-11.5); MONOCYTE# 1.2 X10e3 (0-1.0); MONOCYTE% 6.7 % (3.0-12.0); NEUTROPHIL# 15.6 X10e3 (1.5-7.1); NEUTROPHIL% 89.2 % (40-75); PLATELET COUNT 440 X10e3 (140-420); RED BLOOD COUNT 3.24 X10e (3.90-5.30); RED CELL DISTRIBUTION WIDTH 20.7 % (11.0-15.5); WHITE BLOOD COUNT 17.4 X10e3 (4.0-10.5)
[2016-09-10 20:28] LABS: DIFF IND YES
[2016-09-10 20:36] LABS: INR 2.8; PROTHROMBIN TIME (PATIENT) 30.9 SECONDS (9.6-11.5)
[2016-09-10 20:40] LABS: POC - CREATININE 1.08 mg/dL (0.44-1.03)
[2016-09-10 20:43] LABS: NUCLEATED RED BLOOD CELL 2 /100 (0); PLATELET ESTIMATE INCREASED (NORMAL)
[2016-09-10 20:44] LABS: CALCIUM SERUM 8.5 mg/dL (8.4-10.2); CREATININE SERUM 1.1 mg/dL (0.6-1.4); POTASSIUM 4.4 mmol/L (3.5-5.1)
[2016-09-10 20:45] LABS: ANISOCYTOSIS MOD
[2016-09-10 20:56] LABS: POC - CKMB 2.3 ng/mL (0.0-7.9); POC - TROPONIN <0.05 ng/mL (<=0.05)
[~2016-09-10 21:28] MED LIST changes: +ASPIRIN81 MG PO; +BISACODYL10 MG/SUPP PR; +BUPROPION XL300 M1; +BUPROPION XL300 M1 PO; +BUPROPION XL300 MG PO; +COMBIVENT U/D3 M2 INH; +COUMADIN7.5 MG PO; +DULOXETINE HCL60 MG PO; +GUAIFENESIN LA600 M1 PO; +HYDROCHLOROTHIA25 MG PO; +KEFLEX250 M1 PO; +LASIX20 MG PO; +LIPITOR80 MG PO; +LOPRESSOR PO; +LORTAB 10-3251 EACH PO; +MELATONIN5 M1 PO; +MILK OF MAGNESIA PO; +NEURONTIN300 MG PO; +NIFEDIPINE ER60 M1 PO; +OMEPRAZOLE40 M1 PO; +PREDNISONE PO; +ZYRTEC5 M2 PO
[2016-09-10 21:46] LABS: ARTERIAL BLD GAS O2 SATURATION 98.6 % (90.0-100.0); ARTERIAL BLOOD GAS CARBOXY HB 0.5 %sat (0.0-9.0); ARTERIAL BLOOD GAS HCO3 24.1 mmol/L; ARTERIAL BLOOD GAS MET HB 0.9 %sat (0.0-2.0); ARTERIAL BLOOD GAS PCO2 37.6 mmHg (35.0-45.0); ARTERIAL BLOOD GAS pH 7.415 (7.350-7.450)
[2016-09-10 21:47] LABS: ARTERIAL BLOOD GAS ALLEN TEST NORMAL; ARTERIAL BLOOD GAS ART SITE LEFT RADIAL; ARTERIAL BLOOD GAS DELIVERY VENTURI MASK; ARTERIAL DRAW? YES
[2016-09-10 22:11] LABS: POC - CKMB 2.4 ng/mL (0.0-7.9); POC - TROPONIN <0.05 ng/mL (<=0.05)
[2016-09-11 05:40] LABS: INR 2.8; PARTIAL THROMBOPLASTIN TIME 24.6 SECONDS (23.5-31.3); PROTHROMBIN TIME (PATIENT) 30.8 SECONDS (9.6-11.5)
[2016-09-11 05:43] LABS: BASOPHIL% 0.1 % (0-2.5); HEMOGLOBIN 8.2 gm/dL (12.0-16.0); LYMPHOCYTE# 0.4 X10e3 (1.0-3.5); LYMPHOCYTE% 2.1 % (17.0-45.0); MEAN CELL VOLUME 83.2 FL (83-96); MEAN CORPUSCULAR HEMOGLOBIN 26.1 PG (28-34); MEAN CORPUSCULAR HGB CONC 31.4 g/dL (30-36); MEAN PLATELET VOLUME 7.1 FL (6.5-11.5); MONOCYTE# 0.8 X10e3 (0-1.0); MONOCYTE% 4.3 % (3.0-12.0); NEUTROPHIL# 18.1 X10e3 (1.5-7.1); NEUTROPHIL% 93.5 % (40-75); RED BLOOD COUNT 3.13 X10e (3.90-5.30); RED CELL DISTRIBUTION WIDTH 21.1 % (11.0-15.5); WHITE BLOOD COUNT 19.4 X10e3 (4.0-10.5)
[2016-09-11 06:01] LABS: ALBUMIN SERUM 2.9 g/dL (3.5-5.0); BILIRUBIN,TOTAL 0.4 mg/dL (0.2-2.0); BUN/CREATININE RATIO 25.45; CALCIUM SERUM 8.3 mg/dL (8.4-10.2); CREATININE SERUM 1.1 mg/dL (0.6-1.4); POTASSIUM 4.5 mmol/L (3.5-5.1); PROTEIN TOTAL SERUM 6.7 g/dL (6.0-8.3)
[2016-09-11 07:14] LABS: PLATELET COUNT 318 X10e3 (140-420)
[2016-09-11 07:15] LABS: DIFF IND YES
[2016-09-11 07:20] LABS: ANISOCYTOSIS MOD; HYPERSEGMENTED POLYS PRESENT; HYPOCHROMIA MOD; PLATELET ESTIMATE NORMAL (NORMAL); POIKILOCYTOSIS SL; TARGET CELLS SL; TEAR DROP CELLS PRESENT; TOXIC GRANULATION SL; VACUOLIZATION SL
[2016-09-11 12:34] LABS: ARTERIAL BLD GAS O2 SATURATION 92.8 % (90.0-100.0); ARTERIAL BLOOD GAS HCO3 29.8 mmol/L; ARTERIAL BLOOD GAS MET HB 0.8 %sat (0.0-2.0); ARTERIAL BLOOD GAS PCO2 39.6 mmHg (35.0-45.0); ARTERIAL BLOOD GAS pH 7.485 (7.350-7.450)
[2016-09-11 12:35] LABS: ARTERIAL BLOOD GAS ALLEN TEST NORMAL; ARTERIAL BLOOD GAS ART SITE LEFT RADIAL; ARTERIAL BLOOD GAS DELIVERY NASAL CANNULA; ARTERIAL BLOOD GAS PO2 66.8 mmHg (80.0-100); ARTERIAL DRAW? YES
[2016-09-11 16:15] LABS: ARTERIAL BLOOD GAS CARBOXY HB 0.6 %sat (0.0-9.0); ARTERIAL BLOOD GAS MET HB 0.8 %sat (0.0-2.0); ARTERIAL BLOOD GAS PCO2 30.5 mmHg (35.0-45.0); ARTERIAL BLOOD GAS pH 7.571 (7.350-7.450)
[2016-09-11 16:16] LABS: ARTERIAL BLOOD GAS ALLEN TEST NORMAL; ARTERIAL BLOOD GAS ART SITE RIGHT RADIAL; ARTERIAL BLOOD GAS DELIVERY VENT; ARTERIAL BLOOD GAS VENT MODE AC; ARTERIAL DRAW? YES
[2016-09-11 16:38] LABS: FOLATE (FOLIC ACID) 9.7 ng/mL (>5.8)
[2016-09-11 16:43] LABS: URINE APPEARANCE CLEAR; URINE BILIRUBIN NEG (NEG); URINE BLOOD 2+ (NEG); URINE COLOR YELLOW; URINE GLUCOSE NEG (NEG); URINE KETONE NEG (NEG); URINE LEUKOCYTE ESTERASE 2+ (NEG); URINE NITRATE NEG (NEG); URINE PH 6.5 (5-8); URINE PROTEIN NEG (NEG); URINE SPECIFIC GRAVITY 1.016 (1.003-1.035); URINE UROBILINOGEN 0.2 MG/DL (NEG)
[2016-09-11 16:45] LABS: U HYALINE CASTS AUWI 0-2 /[LPF]; URINE BACTERIA AUWI NEG (NEGATIVE); URINE SQUAMOUS EPITHELIAL CELL OCC /[HPF]
[2016-09-12 05:04] LABS: ARTERIAL BLD GAS O2 SATURATION 98.9 % (90.0-100.0); ARTERIAL BLOOD GAS CARBOXY HB 0.5 %sat (0.0-9.0); ARTERIAL BLOOD GAS HCO3 30.2 mmol/L; ARTERIAL BLOOD GAS PCO2 32.8 mmHg (35.0-45.0); ARTERIAL BLOOD GAS pH 7.573 (7.350-7.450)
[2016-09-12 05:06] LABS: BASOPHIL% 0.1 % (0-2.5); DIFF IND NO; EOSINOPHIL# 0.1 X10e3 (0-0.7); EOSINOPHIL% 0.3 % (0.0-7.0); HEMATOCRIT 24.3 % (35.0-45.0); HEMOGLOBIN 7.7 gm/dL (12.0-16.0); LYMPHOCYTE# 0.6 X10e3 (1.0-3.5); LYMPHOCYTE% 2.5 % (17.0-45.0); MEAN CELL VOLUME 83.6 FL (83-96); MEAN CORPUSCULAR HEMOGLOBIN 26.6 PG (28-34); MEAN CORPUSCULAR HGB CONC 31.8 g/dL (30-36); MEAN PLATELET VOLUME 7.1 FL (6.5-11.5); MONOCYTE# 0.7 X10e3 (0-1.0); MONOCYTE% 2.8 % (3.0-12.0); NEUTROPHIL# 21.8 X10e3 (1.5-7.1); NEUTROPHIL% 94.3 % (40-75); PLATELET COUNT 305 X10e3 (140-420); RED BLOOD COUNT 2.91 X10e (3.90-5.30); WHITE BLOOD COUNT 23.1 X10e3 (4.0-10.5)
[2016-09-12 05:15] LABS: ARTERIAL BLOOD GAS ALLEN TEST NORMAL; ARTERIAL BLOOD GAS ART SITE RIGHT RADIAL; ARTERIAL DRAW? YES
[2016-09-12 05:16] LABS: ARTERIAL BLOOD GAS DELIVERY VENT; ARTERIAL BLOOD GAS VENT MODE AC
[2016-09-12 05:17] LABS: INR 3.1; PROTHROMBIN TIME (PATIENT) 34.4 SECONDS (9.6-11.5)
[2016-09-12 05:52] LABS: ALBUMIN SERUM 2.9 g/dL (3.5-5.0); BILIRUBIN,TOTAL 0.3 mg/dL (0.2-2.0); BUN/CREATININE RATIO 18.18; CALCIUM SERUM 8.1 mg/dL (8.4-10.2); CREATININE SERUM 1.1 mg/dL (0.6-1.4); POTASSIUM 3.8 mmol/L (3.5-5.1); PROTEIN TOTAL SERUM 6.4 g/dL (6.0-8.3)
[2016-09-12 08:47] LABS: CHOLESTEROL 134 mg/dL (0-200); HDL CHOLESTEROL 74 mg/dL (35-95); LDL CHOLESTEROL 50 mg/dL (-130); LDL/HDL RATIO 1 RATIO (0-4); TRIGLYCERIDES 49 mg/dL (10-160)
[2016-09-12 13:23] LABS: CRYPTO AG CSF/SERUM NEG (NEG); CRYPTO AG SOURCE SERUM
[2016-09-13 04:24] LABS: ARTERIAL BLD GAS O2 SATURATION 98.8 % (90.0-100.0); ARTERIAL BLOOD GAS CARBOXY HB 0.7 %sat (0.0-9.0); ARTERIAL BLOOD GAS HCO3 28.2 mmol/L; ARTERIAL BLOOD GAS MET HB 0.5 %sat (0.0-2.0); ARTERIAL BLOOD GAS PCO2 41.3 mmHg (35.0-45.0); ARTERIAL BLOOD GAS pH 7.443 (7.350-7.450)
[2016-09-13 04:28] LABS: ARTERIAL BLOOD GAS ALLEN TEST NORMAL; ARTERIAL DRAW? YES
[2016-09-13 04:29] LABS: ARTERIAL BLOOD GAS ART SITE RIGHT RADIAL; ARTERIAL BLOOD GAS DELIVERY VENT; ARTERIAL BLOOD GAS VENT MODE AC
[2016-09-13 04:45] LABS: EOSINOPHIL% 0.1 % (0.0-7.0); HEMATOCRIT 24.3 % (35.0-45.0); HEMOGLOBIN 7.6 gm/dL (12.0-16.0); LYMPHOCYTE# 0.8 X10e3 (1.0-3.5); LYMPHOCYTE% 3.2 % (17.0-45.0); MEAN CELL VOLUME 84.2 FL (83-96); MEAN CORPUSCULAR HEMOGLOBIN 26.4 PG (28-34); MEAN CORPUSCULAR HGB CONC 31.3 g/dL (30-36); MEAN PLATELET VOLUME 7.3 FL (6.5-11.5); MONOCYTE# 1.3 X10e3 (0-1.0); MONOCYTE% 5.3 % (3.0-12.0); NEUTROPHIL# 22.9 X10e3 (1.5-7.1); NEUTROPHIL% 91.4 % (40-75); PLATELET COUNT 282 X10e3 (140-420); RED BLOOD COUNT 2.88 X10e (3.90-5.30); RED CELL DISTRIBUTION WIDTH 20.8 % (11.0-15.5)
[2016-09-13 04:46] LABS: DIFF IND NO
[2016-09-13 04:53] LABS: INR 1.1
[2016-09-13 04:56] LABS: PROTHROMBIN TIME (PATIENT) 12.1 SECONDS (9.6-11.5)
[2016-09-13 05:08] LABS: ALBUMIN SERUM 2.7 g/dL (3.5-5.0); ALKALINE PHOSPHATASE 117 U/L (32-92); ALT (SGPT) 19 U/L (10-40); AST (SGOT) 20 U/L (10-42); BILIRUBIN,TOTAL 0.7 mg/dL (0.2-2.0); BLOOD UREA NITROGEN 14 mg/dL (9-23); CALCIUM SERUM 7.7 mg/dL (8.4-10.2); CARBON DIOXIDE 28 mmol/L (22-31); CHLORIDE 105 mmol/L (100-111); CREATININE SERUM 0.8 mg/dL (0.6-1.4); GLOM FILT RATE Estimated ABOVE60 mL/min (>60); GLUCOSE FASTING 96 mg/dL (70-110); PROTEIN TOTAL SERUM 6.1 g/dL (6.0-8.3); SODIUM 142 mmol/L (135-145)
[2016-09-13 12:42] LABS: GLUCOSE-CSF 78 mg/dL (50-80); PROTEIN-CSF 204 mg/dL (15-45)
[2016-09-13 12:58] LABS: CSF XANTHACHROMIC NO
[2016-09-13 12:59] LABS: CSF APPEARANCE CLEAR (CLEAR); CSF LYMPHOCYTE 26 %; CSF MONOCYTE 14 %; CSF NEUTROPHIL 2 %; CSF RBC 0 CMM (0); CSF TUBE NUMBER 3; CSF WBC 4 CMM (0-8)
[2016-09-14 04:34] LABS: ARTERIAL BLD GAS O2 SATURATION 98.2 % (90.0-100.0); ARTERIAL BLOOD GAS CARBOXY HB 0.7 %sat (0.0-9.0); ARTERIAL BLOOD GAS HCO3 24.8 mmol/L; ARTERIAL BLOOD GAS MET HB 1.1 %sat (0.0-2.0); ARTERIAL BLOOD GAS PCO2 37.4 mmHg (35.0-45.0)
[2016-09-14 04:40] LABS: ARTERIAL BLOOD GAS ALLEN TEST NORMAL; ARTERIAL BLOOD GAS ART SITE LEFT RADIAL; ARTERIAL BLOOD GAS DELIVERY VENT; ARTERIAL BLOOD GAS VENT MODE AC; ARTERIAL DRAW? YES
[2016-09-14 04:53] LABS: BASOPHIL% 0.2 % (0-2.5); DIFF IND NO; HEMATOCRIT 24.6 % (35.0-45.0); HEMOGLOBIN 7.5 gm/dL (12.0-16.0); LYMPHOCYTE# 0.5 X10e3 (1.0-3.5); LYMPHOCYTE% 2.8 % (17.0-45.0); MEAN CELL VOLUME 84.6 FL (83-96); MEAN CORPUSCULAR HEMOGLOBIN 25.9 PG (28-34); MEAN CORPUSCULAR HGB CONC 30.6 g/dL (30-36); MEAN PLATELET VOLUME 7.1 FL (6.5-11.5); MONOCYTE# 0.6 X10e3 (0-1.0); NEUTROPHIL# 14.8 X10e3 (1.5-7.1); PLATELET COUNT 264 X10e3 (140-420); RED CELL DISTRIBUTION WIDTH 21.1 % (11.0-15.5); WHITE BLOOD COUNT 15.9 X10e3 (4.0-10.5)
[2016-09-14 05:01] LABS: INR 1.4; PROTHROMBIN TIME (PATIENT) 14.5 SECONDS (9.6-11.5)
[2016-09-14 05:10] LABS: BLOOD UREA NITROGEN 10 mg/dL (9-23); CALCIUM SERUM 7.7 mg/dL (8.4-10.2); CARBON DIOXIDE 25 mmol/L (22-31); CHLORIDE 112 mmol/L (100-111); GLOM FILT RATE Estimated ABOVE60 mL/min (>60); GLUCOSE FASTING 125 mg/dL (70-110); MAGNESIUM 1.4 mg/dL (1.6-3.0); POTASSIUM 3.9 mmol/L (3.5-5.1); SODIUM 140 mmol/L (135-145)
[2016-09-15 04:04] LABS: ARTERIAL BLOOD GAS CARBOXY HB 0.5 %sat (0.0-9.0); ARTERIAL BLOOD GAS HCO3 23.5 mmol/L; ARTERIAL BLOOD GAS PCO2 31.9 mmHg (35.0-45.0); ARTERIAL BLOOD GAS pH 7.475 (7.350-7.450)
[2016-09-15 04:06] LABS: ARTERIAL BLOOD GAS ALLEN TEST NORMAL; ARTERIAL BLOOD GAS ART SITE RIGHT RADIAL; ARTERIAL BLOOD GAS DELIVERY VENT; ARTERIAL BLOOD GAS VENT MODE AC; ARTERIAL DRAW? YES
[2016-09-15 04:22] LABS: BASOPHIL# 0.1 X10e3 (0-0.3); BASOPHIL% 0.5 % (0-2.5); HEMATOCRIT 23.6 % (35.0-45.0); HEMOGLOBIN 7.2 gm/dL (12.0-16.0); LYMPHOCYTE# 0.6 X10e3 (1.0-3.5); LYMPHOCYTE% 3.5 % (17.0-45.0); MEAN CELL VOLUME 85.8 FL (83-96); MEAN CORPUSCULAR HEMOGLOBIN 26.2 PG (28-34); MEAN CORPUSCULAR HGB CONC 30.5 g/dL (30-36); MEAN PLATELET VOLUME 7.6 FL (6.5-11.5); MONOCYTE# 0.8 X10e3 (0-1.0); MONOCYTE% 4.8 % (3.0-12.0); NEUTROPHIL# 14.5 X10e3 (1.5-7.1); NEUTROPHIL% 91.2 % (40-75); PLATELET COUNT 289 X10e3 (140-420); RED BLOOD COUNT 2.75 X10e (3.90-5.30); WHITE BLOOD COUNT 15.9 X10e3 (4.0-10.5)
[2016-09-15 04:26] LABS: DIFF IND NO
[2016-09-15 05:00] LABS: ALBUMIN SERUM 2.7 g/dL (3.5-5.0); ALKALINE PHOSPHATASE 120 U/L (32-92); ALT (SGPT) 19 U/L (10-40); AST (SGOT) 21 U/L (10-42); BILIRUBIN,TOTAL 0.6 mg/dL (0.2-2.0); BLOOD UREA NITROGEN 12 mg/dL (9-23); CALCIUM SERUM 7.7 mg/dL (8.4-10.2); CARBON DIOXIDE 23 mmol/L (22-31); CHLORIDE 110 mmol/L (100-111); GLOM FILT RATE Estimated ABOVE60 mL/min (>60); GLUCOSE FASTING 120 mg/dL (70-110); MAGNESIUM 2.2 mg/dL (1.6-3.0); POTASSIUM 4.1 mmol/L (3.5-5.1); SODIUM 135 mmol/L (135-145)
[2016-09-15 08:37] LABS: INR 1.4; PROTHROMBIN TIME (PATIENT) 15.1 SECONDS (9.6-11.5)
[2016-09-15 09:13] LABS: COMPLEMENT C3 75 mg/dL (90-180); COMPLEMENT C4 21 mg/dL (16-47)
[2016-09-15 11:34] LABS: HSV 1 DNA Not Detected (Not Detected); HSV 2 DNA Not Detected (Not Detected)
[2016-09-15 14:21] LABS: ARTERIAL BLD GAS O2 SATURATION 97.8 % (90.0-100.0); ARTERIAL BLOOD GAS CARBOXY HB 0.8 %sat (0.0-9.0); ARTERIAL BLOOD GAS MET HB 1.4 %sat (0.0-2.0); ARTERIAL BLOOD GAS PCO2 36.5 mmHg (35.0-45.0); ARTERIAL BLOOD GAS pH 7.426 (7.350-7.450)
[2016-09-15 14:22] LABS: ARTERIAL BLOOD GAS ALLEN TEST NORMAL; ARTERIAL BLOOD GAS ART SITE LEFT RADIAL; ARTERIAL BLOOD GAS DELIVERY VENT; ARTERIAL BLOOD GAS VENT MODE CPAP; ARTERIAL DRAW? YES
[2016-09-15 17:11] LABS: GLUCOSE-CSF 64 mg/dL (50-80); PROTEIN-CSF 50 mg/dL (15-45)
[2016-09-15 17:33] LABS: CSF TUBE NUMBER 4
[2016-09-15 17:34] LABS: CSF APPEARANCE CLEAR (CLEAR); CSF RBC 1 CMM (0); CSF WBC 1 CMM (0-8); CSF XANTHACHROMIC NO
[2016-09-15 18:27] LABS: CSF LYMPHOCYTE 0 %; CSF MONOCYTE 0 %; CSF NEUTROPHIL 0 %
[2016-09-16 04:42] LABS: ARTERIAL BLOOD GAS CARBOXY HB 0.7 %sat (0.0-9.0); ARTERIAL BLOOD GAS HCO3 23.8 mmol/L; ARTERIAL BLOOD GAS MET HB 1.3 %sat (0.0-2.0); ARTERIAL BLOOD GAS PCO2 39.2 mmHg (35.0-45.0); ARTERIAL BLOOD GAS pH 7.392 (7.350-7.450)
[2016-09-16 05:25] LABS: INR 1.2; PROTHROMBIN TIME (PATIENT) 12.9 SECONDS (9.6-11.5)
[2016-09-16 06:09] LABS: ARTERIAL BLOOD GAS ALLEN TEST NORMAL; ARTERIAL BLOOD GAS ART SITE LEFT RADIAL; ARTERIAL BLOOD GAS DELIVERY VENT; ARTERIAL BLOOD GAS VENT MODE AC; ARTERIAL DRAW? YES
[2016-09-16 08:26] LABS: ARTERIAL BLD GAS O2 SATURATION 98.6 % (90.0-100.0); ARTERIAL BLOOD GAS CARBOXY HB 0.7 %sat (0.0-9.0); ARTERIAL BLOOD GAS HCO3 23.6 mmol/L; ARTERIAL BLOOD GAS MET HB 0.8 %sat (0.0-2.0); ARTERIAL BLOOD GAS pH 7.464 (7.350-7.450)
[2016-09-16 08:27] LABS: ARTERIAL BLOOD GAS ART SITE LEFT RADIAL; ARTERIAL DRAW? YES
[2016-09-16 08:28] LABS: ARTERIAL BLOOD GAS DELIVERY VENT; ARTERIAL BLOOD GAS VENT MODE CPAP
[2016-09-16 08:48] LABS: BASOPHIL% 0.1 % (0-2.5); EOSINOPHIL% 0.1 % (0.0-7.0); HEMATOCRIT 19.8 % (35.0-45.0); LYMPHOCYTE% 8.1 % (17.0-45.0); MEAN CELL VOLUME 85.8 FL (83-96); MEAN CORPUSCULAR HEMOGLOBIN 26.1 PG (28-34); MEAN CORPUSCULAR HGB CONC 30.4 g/dL (30-36); MEAN PLATELET VOLUME 7.3 FL (6.5-11.5); MONOCYTE# 1.3 X10e3 (0-1.0); MONOCYTE% 11.1 % (3.0-12.0); NEUTROPHIL# 9.6 X10e3 (1.5-7.1); NEUTROPHIL% 80.6 % (40-75); PLATELET COUNT 224 X10e3 (140-420); RED CELL DISTRIBUTION WIDTH 20.4 % (11.0-15.5); WHITE BLOOD COUNT 11.8 X10e3 (4.0-10.5)
[2016-09-16 08:53] LABS: DIFF IND NO
[2016-09-16 08:56] LABS: ALBUMIN SERUM 2.4 g/dL (3.5-5.0); BILIRUBIN,TOTAL 0.4 mg/dL (0.2-2.0); BUN/CREATININE RATIO 12.72; CALCIUM SERUM 8.3 mg/dL (8.4-10.2); CREATININE SERUM 1.1 mg/dL (0.6-1.4); MAGNESIUM 1.8 mg/dL (1.6-3.0); POTASSIUM 4.8 mmol/L (3.5-5.1); PROTEIN TOTAL SERUM 5.6 g/dL (6.0-8.3)
[2016-09-16 08:59] LABS: CRYPTO AG CSF/SERUM NEG (NEG); CRYPTO AG SOURCE CSF
[2016-09-16 12:03] LABS: FIBRINOGEN 340 MG/DL (200-400)
[2016-09-16 12:15] LABS: D DIMER 1543 NG/ML (45-500)
[2016-09-16 12:42] LABS: ARTERIAL BLD GAS O2 SATURATION 98.2 % (90.0-100.0); ARTERIAL BLOOD GAS CARBOXY HB 0.5 %sat (0.0-9.0); ARTERIAL BLOOD GAS HCO3 22.7 mmol/L; ARTERIAL BLOOD GAS MET HB 1.2 %sat (0.0-2.0); ARTERIAL BLOOD GAS PCO2 27.7 mmHg (35.0-45.0); ARTERIAL BLOOD GAS pH 7.521 (7.350-7.450)
[2016-09-16 12:43] LABS: ARTERIAL BLOOD GAS ART SITE LEFT RADIAL; ARTERIAL BLOOD GAS DELIVERY ATT; ARTERIAL DRAW? YES
[2016-09-16 18:47] LABS: BASOPHIL% 0.2 % (0-2.5); HEMOGLOBIN 7.5 gm/dL (12.0-16.0); LYMPHOCYTE# 0.4 X10e3 (1.0-3.5); LYMPHOCYTE% 2.8 % (17.0-45.0); MEAN CELL VOLUME 87.7 FL (83-96); MEAN CORPUSCULAR HEMOGLOBIN 27.4 PG (28-34); MEAN CORPUSCULAR HGB CONC 31.2 g/dL (30-36); MEAN PLATELET VOLUME 7.5 FL (6.5-11.5); MONOCYTE# 0.7 X10e3 (0-1.0); MONOCYTE% 4.9 % (3.0-12.0); NEUTROPHIL# 13.5 X10e3 (1.5-7.1); NEUTROPHIL% 92.1 % (40-75); PLATELET COUNT 238 X10e3 (140-420); RED BLOOD COUNT 2.73 X10e (3.90-5.30); RED CELL DISTRIBUTION WIDTH 20.1 % (11.0-15.5); WHITE BLOOD COUNT 14.6 X10e3 (4.0-10.5)
[2016-09-16 18:48] LABS: DIFF IND NO
[2016-09-17 05:22] LABS: BASOPHIL% 0.1 % (0-2.5); LYMPHOCYTE# 0.6 X10e3 (1.0-3.5); LYMPHOCYTE% 4.7 % (17.0-45.0); MEAN CELL VOLUME 87.5 FL (83-96); MEAN CORPUSCULAR HEMOGLOBIN 27.7 PG (28-34); MEAN CORPUSCULAR HGB CONC 31.6 g/dL (30-36); MEAN PLATELET VOLUME 7.7 FL (6.5-11.5); MONOCYTE# 0.8 X10e3 (0-1.0); MONOCYTE% 6.4 % (3.0-12.0); NEUTROPHIL# 11.5 X10e3 (1.5-7.1); NEUTROPHIL% 88.8 % (40-75); PLATELET COUNT 219 X10e3 (140-420); RED BLOOD COUNT 2.52 X10e (3.90-5.30); WHITE BLOOD COUNT 12.9 X10e3 (4.0-10.5)
[2016-09-17 05:31] LABS: INR 1.1; PROTHROMBIN TIME (PATIENT) 11.6 SECONDS (9.6-11.5)
[2016-09-17 05:33] LABS: DIFF IND YES
[2016-09-17 06:02] LABS: ARTERIAL BLD GAS O2 SATURATION 99.7 % (90.0-100.0); ARTERIAL BLOOD GAS ALLEN TEST NORMAL; ARTERIAL BLOOD GAS ART SITE RIGHT RADIAL; ARTERIAL BLOOD GAS CARBOXY HB 0.6 %sat (0.0-9.0); ARTERIAL BLOOD GAS DELIVERY NASAL CANNULA; ARTERIAL BLOOD GAS HCO3 21.9 mmol/L; ARTERIAL BLOOD GAS MET HB 0.7 %sat (0.0-2.0); ARTERIAL BLOOD GAS PCO2 28.2 mmHg (35.0-45.0); ARTERIAL BLOOD GAS pH 7.498 (7.350-7.450); ARTERIAL DRAW? YES
[2016-09-17 06:14] LABS: ALBUMIN SERUM 2.7 g/dL (3.5-5.0); BILIRUBIN,TOTAL 0.5 mg/dL (0.2-2.0); CALCIUM SERUM 8.5 mg/dL (8.4-10.2); CREATININE SERUM 1.1 mg/dL (0.6-1.4); MAGNESIUM 2.2 mg/dL (1.6-3.0); POTASSIUM 4.4 mmol/L (3.5-5.1)
[2016-09-17 06:35] LABS: HYPOCHROMIA MOD; PLATELET ESTIMATE NORMAL (NORMAL); POIKILOCYTOSIS SL
[2016-09-17 06:36] LABS: OVALOCYTES PRESENT; POLYCHROMASIA SL; SCHISTOCYTES PRESENT
[2016-09-17 15:45] LABS: HEMOGLOBIN 7.6 gm/dL (12.0-16.0)
[2016-09-17 22:38] LABS: HEMATOCRIT 26.2 % (35.0-45.0); HEMOGLOBIN 8.2 gm/dL (12.0-16.0)
[2016-09-18 03:48] LABS: BASOPHIL% 0.3 % (0-2.5); HEMATOCRIT 26.5 % (35.0-45.0); HEMOGLOBIN 8.4 gm/dL (12.0-16.0); LYMPHOCYTE# 0.8 X10e3 (1.0-3.5); LYMPHOCYTE% 5.2 % (17.0-45.0); MEAN CELL VOLUME 87.8 FL (83-96); MEAN CORPUSCULAR HEMOGLOBIN 27.7 PG (28-34); MEAN CORPUSCULAR HGB CONC 31.6 g/dL (30-36); MEAN PLATELET VOLUME 7.5 FL (6.5-11.5); MONOCYTE# 1.6 X10e3 (0-1.0); MONOCYTE% 10.3 % (3.0-12.0); NEUTROPHIL# 13.1 X10e3 (1.5-7.1); NEUTROPHIL% 84.2 % (40-75); PLATELET COUNT 222 X10e3 (140-420); RED BLOOD COUNT 3.02 X10e (3.90-5.30); RED CELL DISTRIBUTION WIDTH 19.5 % (11.0-15.5); WHITE BLOOD COUNT 15.6 X10e3 (4.0-10.5)
[2016-09-18 03:49] LABS: DIFF IND NO
[2016-09-18 03:54] LABS: INR 1.1; PROTHROMBIN TIME (PATIENT) 11.1 SECONDS (9.6-11.5)
[2016-09-18 04:06] LABS: BILIRUBIN,TOTAL 0.5 mg/dL (0.2-2.0); BUN/CREATININE RATIO 30.9; CALCIUM SERUM 7.9 mg/dL (8.4-10.2); CREATININE SERUM 1.1 mg/dL (0.6-1.4); MAGNESIUM 2.1 mg/dL (1.6-3.0); POTASSIUM 3.8 mmol/L (3.5-5.1); PROTEIN TOTAL SERUM 6.6 g/dL (6.0-8.3)
[2016-09-18 16:43] LABS: ASPERGILLUS FLAVUS Negative (Negative); ASPERGILLUS FUMIGATUS Negative (Negative); ASPERGILLUS NIGER Negative (Negative); BLASTOMYCES ANTIBODY Negative (Negative); COCCIDIODES ANTIBODY Negative (Negative); CRYPTOCOCCAL AB <1:2 (()); CRYPTOCOCCAL AG SCREEN SOURCE Serum (()); CRYPTOCOCCAL SCREEN Not Detected (Not Detected); HISTOPLASMA AB Negative (Negative)
[2016-09-19 06:13] LABS: PROTHROMBIN TIME (PATIENT) 10.8 SECONDS (9.6-11.5)
[2016-09-19 06:20] LABS: BASOPHIL% 0.1 % (0-2.5); HEMATOCRIT 24.6 % (35.0-45.0); HEMOGLOBIN 7.8 gm/dL (12.0-16.0); LYMPHOCYTE# 0.5 X10e3 (1.0-3.5); MEAN CELL VOLUME 89.2 FL (83-96); MEAN CORPUSCULAR HEMOGLOBIN 28.2 PG (28-34); MEAN CORPUSCULAR HGB CONC 31.7 g/dL (30-36); MEAN PLATELET VOLUME 8.2 FL (6.5-11.5); MONOCYTE# 1.1 X10e3 (0-1.0); MONOCYTE% 7.6 % (3.0-12.0); NEUTROPHIL# 13.5 X10e3 (1.5-7.1); NEUTROPHIL% 89.3 % (40-75); PLATELET COUNT 211 X10e3 (140-420); RED BLOOD COUNT 2.75 X10e (3.90-5.30); RED CELL DISTRIBUTION WIDTH 19.9 % (11.0-15.5); WHITE BLOOD COUNT 15.1 X10e3 (4.0-10.5)
[2016-09-19 06:22] LABS: DIFF IND NO
[2016-09-19 06:58] LABS: ALBUMIN SERUM 2.6 g/dL (3.5-5.0); BILIRUBIN,TOTAL 0.4 mg/dL (0.2-2.0); BUN/CREATININE RATIO 34.16; CALCIUM SERUM 8.3 mg/dL (8.4-10.2); CREATININE SERUM 1.2 mg/dL (0.6-1.4); GLOM FILT RATE Estimated 49.8 mL/min (>60); MAGNESIUM 2.1 mg/dL (1.6-3.0); POTASSIUM 3.9 mmol/L (3.5-5.1)
[2016-09-20 04:01] LABS: HEMATOCRIT 25.4 % (35.0-45.0); MEAN CORPUSCULAR HGB CONC 31.4 g/dL (30-36); MEAN PLATELET VOLUME 7.5 FL (6.5-11.5); RED BLOOD COUNT 2.85 X10e (3.90-5.30); RED CELL DISTRIBUTION WIDTH 20.1 % (11.0-15.5); WHITE BLOOD COUNT 15.5 X10e3 (4.0-10.5)
[2016-09-20 04:06] LABS: INR 1.1; PROTHROMBIN TIME (PATIENT) 11.2 SECONDS (9.6-11.5)
[2016-09-20 04:17] LABS: ALBUMIN SERUM 2.7 g/dL (3.5-5.0); BILIRUBIN,TOTAL 0.5 mg/dL (0.2-2.0); BUN/CREATININE RATIO 33.84; CALCIUM SERUM 7.8 mg/dL (8.4-10.2); CREATININE SERUM 1.3 mg/dL (0.6-1.4); GLOM FILT RATE Estimated 45.4 mL/min (>60); PROTEIN TOTAL SERUM 6.1 g/dL (6.0-8.3)
[2016-09-20 22:13] LABS: ANA SCREEN Positive (Negative); ANA TITER (ANA) >=1:1280 (Negative); ANA TITER COMMENT Has been added (()); NUCLEAR PATTERN (ANA) Centromere (())
[2016-09-21 04:36] LABS: BASOPHIL% 0.1 % (0-2.5); HEMATOCRIT 25.3 % (35.0-45.0); LYMPHOCYTE# 0.2 X10e3 (1.0-3.5); LYMPHOCYTE% 1.6 % (17.0-45.0); MEAN CELL VOLUME 88.9 FL (83-96); MEAN CORPUSCULAR HEMOGLOBIN 28.2 PG (28-34); MEAN CORPUSCULAR HGB CONC 31.7 g/dL (30-36); MEAN PLATELET VOLUME 7.8 FL (6.5-11.5); MONOCYTE# 0.4 X10e3 (0-1.0); MONOCYTE% 2.6 % (3.0-12.0); NEUTROPHIL# 14.1 X10e3 (1.5-7.1); NEUTROPHIL% 95.7 % (40-75); PLATELET COUNT 199 X10e3 (140-420); RED BLOOD COUNT 2.84 X10e (3.90-5.30); RED CELL DISTRIBUTION WIDTH 20.4 % (11.0-15.5); WHITE BLOOD COUNT 14.7 X10e3 (4.0-10.5)
[2016-09-21 04:39] LABS: DIFF IND NO
[2016-09-21 04:54] LABS: ALBUMIN SERUM 2.7 g/dL (3.5-5.0); BILIRUBIN,TOTAL 0.2 mg/dL (0.2-2.0); BUN/CREATININE RATIO 33.33; CALCIUM SERUM 7.8 mg/dL (8.4-10.2); CREATININE SERUM 1.2 mg/dL (0.6-1.4); GLOM FILT RATE Estimated 49.8 mL/min (>60); POTASSIUM 4.1 mmol/L (3.5-5.1); PROTEIN TOTAL SERUM 5.9 g/dL (6.0-8.3)
[2016-09-22 05:39] LABS: BASOPHIL% 0.2 % (0-2.5); HEMATOCRIT 25.9 % (35.0-45.0); HEMOGLOBIN 8.1 gm/dL (12.0-16.0); LYMPHOCYTE# 0.9 X10e3 (1.0-3.5); LYMPHOCYTE% 4.3 % (17.0-45.0); MEAN CELL VOLUME 90.2 FL (83-96); MEAN CORPUSCULAR HEMOGLOBIN 28.1 PG (28-34); MEAN CORPUSCULAR HGB CONC 31.1 g/dL (30-36); MONOCYTE# 1.8 X10e3 (0-1.0); MONOCYTE% 8.8 % (3.0-12.0); NEUTROPHIL# 17.7 X10e3 (1.5-7.1); NEUTROPHIL% 86.7 % (40-75); PLATELET COUNT 204 X10e3 (140-420); RED BLOOD COUNT 2.87 X10e (3.90-5.30); RED CELL DISTRIBUTION WIDTH 20.6 % (11.0-15.5); WHITE BLOOD COUNT 20.4 X10e3 (4.0-10.5)
[2016-09-22 05:45] LABS: DIFF IND YES
[2016-09-22 06:02] LABS: ALBUMIN SERUM 2.5 g/dL (3.5-5.0); BILIRUBIN,TOTAL 0.5 mg/dL (0.2-2.0); CALCIUM SERUM 8.2 mg/dL (8.4-10.2); CREATININE SERUM 1.2 mg/dL (0.6-1.4); GLOM FILT RATE Estimated 49.8 mL/min (>60); MAGNESIUM 1.8 mg/dL (1.6-3.0); POTASSIUM 3.9 mmol/L (3.5-5.1); PROTEIN TOTAL SERUM 5.5 g/dL (6.0-8.3)
[2016-09-22 06:13] LABS: ANISOCYTOSIS MOD; PLATELET ESTIMATE NORMAL (NORMAL)
[2016-09-22 09:32] LABS: INR 1.1; PROTHROMBIN TIME (PATIENT) 11.4 SECONDS (9.6-11.5)
[2016-09-22 12:28] LABS: URINE APPEARANCE CLEAR; URINE BILIRUBIN NEG (NEG); URINE BLOOD 1+ (NEG); URINE COLOR YELLOW; URINE GLUCOSE NEG (NEG); URINE KETONE NEG (NEG); URINE LEUKOCYTE ESTERASE NEG (NEG); URINE NITRATE NEG (NEG); URINE PH 7.5 (5-8); URINE PROTEIN NEG (NEG); URINE SPECIFIC GRAVITY 1.009 (1.003-1.035); URINE UROBILINOGEN 0.2 MG/DL (NEG)
[2016-09-22 12:32] LABS: CULTURE INDICATED? NO; URBCS1 AUWI 25-50 /[HPF] (0-2); URINE BACTERIA AUWI NEG (NEGATIVE); URINE SQUAMOUS EPITHELIAL CELL NONE SEEN /[HPF]; UWBCS1 AUWI 0-2 (0-5)
[2016-09-22 15:43] LABS: AMYLASE 140 U/L (0-46); LIPASE 58 U/L (22-51)
[2016-09-23 09:05] LABS: BASOPHIL% 0.1 % (0-2.5); HEMATOCRIT 23.4 % (35.0-45.0); HEMOGLOBIN 7.5 gm/dL (12.0-16.0); LYMPHOCYTE# 0.3 X10e3 (1.0-3.5); LYMPHOCYTE% 1.5 % (17.0-45.0); MEAN CELL VOLUME 88.2 FL (83-96); MEAN CORPUSCULAR HEMOGLOBIN 28.4 PG (28-34); MEAN CORPUSCULAR HGB CONC 32.2 g/dL (30-36); MEAN PLATELET VOLUME 7.7 FL (6.5-11.5); MONOCYTE# 1.3 X10e3 (0-1.0); MONOCYTE% 7.2 % (3.0-12.0); NEUTROPHIL% 91.2 % (40-75); PLATELET COUNT 170 X10e3 (140-420); RED BLOOD COUNT 2.66 X10e (3.90-5.30); RED CELL DISTRIBUTION WIDTH 21.4 % (11.0-15.5); WHITE BLOOD COUNT 18.6 X10e3 (4.0-10.5)
[2016-09-23 09:06] LABS: DIFF IND NO
[2016-09-23 09:42] LABS: ALBUMIN SERUM 2.4 g/dL (3.5-5.0); ALKALINE PHOSPHATASE 80 U/L (32-92); ALT (SGPT) 24 U/L (10-40); AST (SGOT) 14 U/L (10-42); BILIRUBIN,TOTAL 0.4 mg/dL (0.2-2.0); BLOOD UREA NITROGEN 23 mg/dL (9-23); BUN/CREATININE RATIO 25.55; CALCIUM SERUM 7.6 mg/dL (8.4-10.2); CARBON DIOXIDE 27 mmol/L (22-31); CHLORIDE 98 mmol/L (100-111); CREATININE SERUM 0.9 mg/dL (0.6-1.4); GLOM FILT RATE Estimated ABOVE60 mL/min (>60); GLUCOSE FASTING 109 mg/dL (70-110); POTASSIUM 3.9 mmol/L (3.5-5.1); PROTEIN TOTAL SERUM 5.5 g/dL (6.0-8.3); SODIUM 132 mmol/L (135-145)
[2016-09-23 19:58] LABS: INR 1.1; PROTHROMBIN TIME (PATIENT) 11.1 SECONDS (9.6-11.5)
[2016-09-24 11:12] LABS: HEMATOCRIT 25.4 % (35.0-45.0); MEAN CELL VOLUME 89.5 FL (83-96); MEAN CORPUSCULAR HEMOGLOBIN 28.3 PG (28-34); MEAN CORPUSCULAR HGB CONC 31.6 g/dL (30-36); MEAN PLATELET VOLUME 8.3 FL (6.5-11.5); RED BLOOD COUNT 2.84 X10e (3.90-5.30); RED CELL DISTRIBUTION WIDTH 21.3 % (11.0-15.5); WHITE BLOOD COUNT 18.7 X10e3 (4.0-10.5)
[2016-09-24 11:19] LABS: PROTHROMBIN TIME (PATIENT) 10.2 SECONDS (9.6-11.5)
[2016-09-24 11:40] LABS: ALBUMIN SERUM 2.6 g/dL (3.5-5.0); BILIRUBIN,TOTAL 0.4 mg/dL (0.2-2.0); CALCIUM SERUM 8.5 mg/dL (8.4-10.2); GLOM FILT RATE Estimated 63.8 mL/min (>60); MAGNESIUM 1.9 mg/dL (1.6-3.0); POTASSIUM 4.6 mmol/L (3.5-5.1); PROTEIN TOTAL SERUM 6.3 g/dL (6.0-8.3)
[2016-09-25 08:13] LABS: HEMATOCRIT 24.3 % (35.0-45.0); HEMOGLOBIN 7.6 gm/dL (12.0-16.0); MEAN CELL VOLUME 89.5 FL (83-96); MEAN CORPUSCULAR HEMOGLOBIN 28.2 PG (28-34); MEAN CORPUSCULAR HGB CONC 31.5 g/dL (30-36); MEAN PLATELET VOLUME 8.3 FL (6.5-11.5); RED BLOOD COUNT 2.71 X10e (3.90-5.30); RED CELL DISTRIBUTION WIDTH 21.4 % (11.0-15.5); WHITE BLOOD COUNT 14.6 X10e3 (4.0-10.5)
[2016-09-25 08:43] LABS: BUN/CREATININE RATIO 18.18; CALCIUM SERUM 8.4 mg/dL (8.4-10.2); CREATININE SERUM 1.1 mg/dL (0.6-1.4); GLOM FILT RATE Estimated 56.9 mL/min (>60); MAGNESIUM 2.1 mg/dL (1.6-3.0)
[2016-09-26 06:12] LABS: HEMATOCRIT 23.2 % (35.0-45.0); HEMOGLOBIN 7.3 gm/dL (12.0-16.0); MEAN CELL VOLUME 89.9 FL (83-96); MEAN CORPUSCULAR HEMOGLOBIN 28.4 PG (28-34); MEAN CORPUSCULAR HGB CONC 31.5 g/dL (30-36); MEAN PLATELET VOLUME 8.3 FL (6.5-11.5); RED BLOOD COUNT 2.58 X10e (3.90-5.30); RED CELL DISTRIBUTION WIDTH 20.8 % (11.0-15.5); WHITE BLOOD COUNT 11.8 X10e3 (4.0-10.5)
[2016-09-26 13:38] LABS: IRON SERUM 17 ug/dL (28-170); TOTAL IRON BINDING CAPACITY 234 ug/dL (269-535); TRANSFERRIN 167 mg/dL (192-382); TRANSFERRIN SATURATION 7 % (20-50)
[2016-09-27 09:59] LABS: HEMATOCRIT 25.4 % (35.0-45.0); HEMOGLOBIN 8.1 gm/dL (12.0-16.0); MEAN CELL VOLUME 89.3 FL (83-96); MEAN CORPUSCULAR HEMOGLOBIN 28.3 PG (28-34); MEAN CORPUSCULAR HGB CONC 31.7 g/dL (30-36); MEAN PLATELET VOLUME 7.6 FL (6.5-11.5); RED BLOOD COUNT 2.84 X10e (3.90-5.30); RED CELL DISTRIBUTION WIDTH 20.7 % (11.0-15.5); WHITE BLOOD COUNT 11.1 X10e3 (4.0-10.5)
[2016-09-27 10:22] LABS: ALBUMIN SERUM 2.6 g/dL (3.5-5.0); BILIRUBIN,TOTAL 0.5 mg/dL (0.2-2.0); BUN/CREATININE RATIO 22.5; CALCIUM SERUM 8.3 mg/dL (8.4-10.2); CREATININE SERUM 1.2 mg/dL (0.6-1.4); GLOM FILT RATE Estimated 51.2 mL/min (>60); POTASSIUM 4.5 mmol/L (3.5-5.1); PROTEIN TOTAL SERUM 6.3 g/dL (6.0-8.3)
[2016-09-28 07:19] LABS: BASOPHIL% 0.3 % (0-2.5); DIFF IND NO; HEMATOCRIT 26.2 % (35.0-45.0); HEMOGLOBIN 8.2 gm/dL (12.0-16.0); LYMPHOCYTE# 0.3 X10e3 (1.0-3.5); MEAN CELL VOLUME 89.3 FL (83-96); MEAN CORPUSCULAR HEMOGLOBIN 27.9 PG (28-34); MEAN CORPUSCULAR HGB CONC 31.2 g/dL (30-36); MEAN PLATELET VOLUME 7.4 FL (6.5-11.5); MONOCYTE# 0.7 X10e3 (0-1.0); MONOCYTE% 5.5 % (3.0-12.0); NEUTROPHIL# 12.1 X10e3 (1.5-7.1); NEUTROPHIL% 92.2 % (40-75); PLATELET COUNT 319 X10e3 (140-420); RED BLOOD COUNT 2.93 X10e (3.90-5.30); RED CELL DISTRIBUTION WIDTH 20.5 % (11.0-15.5); WHITE BLOOD COUNT 13.2 X10e3 (4.0-10.5)
[2016-09-28 08:08] LABS: BUN/CREATININE RATIO 23.07; CALCIUM SERUM 8.5 mg/dL (8.4-10.2); CREATININE SERUM 1.3 mg/dL (0.6-1.4); GLOM FILT RATE Estimated 46.5 mL/min (>60); POTASSIUM 5.2 mmol/L (3.5-5.1)
[2016-09-29 08:04] LABS: HEMATOCRIT 28.2 % (35.0-45.0); HEMOGLOBIN 8.9 gm/dL (12.0-16.0); MEAN CELL VOLUME 88.9 FL (83-96); MEAN CORPUSCULAR HEMOGLOBIN 27.9 PG (28-34); MEAN CORPUSCULAR HGB CONC 31.4 g/dL (30-36); MEAN PLATELET VOLUME 7.6 FL (6.5-11.5); RED BLOOD COUNT 3.17 X10e (3.90-5.30); RED CELL DISTRIBUTION WIDTH 20.4 % (11.0-15.5); WHITE BLOOD COUNT 14.8 X10e3 (4.0-10.5)
[2016-09-30 06:58] LABS: HEMOGLOBIN 8.3 gm/dL (12.0-16.0); MEAN CELL VOLUME 89.7 FL (83-96); MEAN CORPUSCULAR HEMOGLOBIN 27.7 PG (28-34); MEAN CORPUSCULAR HGB CONC 30.9 g/dL (30-36); MEAN PLATELET VOLUME 7.3 FL (6.5-11.5); RED CELL DISTRIBUTION WIDTH 20.6 % (11.0-15.5); WHITE BLOOD COUNT 12.6 X10e3 (4.0-10.5)
[2016-09-30 07:28] LABS: ALBUMIN SERUM 2.3 g/dL (3.5-5.0); BILIRUBIN,TOTAL 0.3 mg/dL (0.2-2.0); BUN/CREATININE RATIO 23.63; CALCIUM SERUM 7.9 mg/dL (8.4-10.2); CREATININE SERUM 1.1 mg/dL (0.6-1.4); GLOM FILT RATE Estimated 56.9 mL/min (>60); MAGNESIUM 1.9 mg/dL (1.6-3.0); POTASSIUM 4.5 mmol/L (3.5-5.1); PROTEIN TOTAL SERUM 5.3 g/dL (6.0-8.3)
[2016-10-01 08:27] LABS: HEMATOCRIT 28.8 % (35.0-45.0); MEAN CELL VOLUME 89.8 FL (83-96); MEAN CORPUSCULAR HEMOGLOBIN 28.1 PG (28-34); MEAN CORPUSCULAR HGB CONC 31.3 g/dL (30-36); MEAN PLATELET VOLUME 7.3 FL (6.5-11.5); RED BLOOD COUNT 3.21 X10e (3.90-5.30); RED CELL DISTRIBUTION WIDTH 20.8 % (11.0-15.5); WHITE BLOOD COUNT 10.4 X10e3 (4.0-10.5)
[2016-10-01 08:42] LABS: CALCIUM SERUM 8.3 mg/dL (8.4-10.2); GLOM FILT RATE Estimated 63.8 mL/min (>60)
[2016-10-03 06:44] LABS: HEMATOCRIT 24.8 % (35.0-45.0); HEMOGLOBIN 7.7 gm/dL (12.0-16.0); MEAN CELL VOLUME 90.6 FL (83-96); MEAN CORPUSCULAR HGB CONC 30.9 g/dL (30-36); MEAN PLATELET VOLUME 7.3 FL (6.5-11.5); RED BLOOD COUNT 2.74 X10e (3.90-5.30); RED CELL DISTRIBUTION WIDTH 21.5 % (11.0-15.5); WHITE BLOOD COUNT 11.1 X10e3 (4.0-10.5)
[2016-10-03 07:10] LABS: CALCIUM SERUM 8.4 mg/dL (8.4-10.2); GLOM FILT RATE Estimated 63.8 mL/min (>60); POTASSIUM 5.3 mmol/L (3.5-5.1)
[2016-10-05 06:18] LABS: BASOPHIL% 0.2 % (0-2.5); HEMATOCRIT 24.7 % (35.0-45.0); HEMOGLOBIN 7.6 gm/dL (12.0-16.0); LYMPHOCYTE# 0.3 X10e3 (1.0-3.5); LYMPHOCYTE% 2.1 % (17.0-45.0); MEAN CELL VOLUME 89.6 FL (83-96); MEAN CORPUSCULAR HEMOGLOBIN 27.7 PG (28-34); MEAN PLATELET VOLUME 7.2 FL (6.5-11.5); MONOCYTE# 0.5 X10e3 (0-1.0); MONOCYTE% 4.2 % (3.0-12.0); NEUTROPHIL# 11.6 X10e3 (1.5-7.1); NEUTROPHIL% 93.5 % (40-75); PLATELET COUNT 254 X10e3 (140-420); RED BLOOD COUNT 2.75 X10e (3.90-5.30); RED CELL DISTRIBUTION WIDTH 21.6 % (11.0-15.5); WHITE BLOOD COUNT 12.4 X10e3 (4.0-10.5)
[2016-10-05 06:22] LABS: DIFF IND YES
[2016-10-05 06:25] LABS: BUN/CREATININE RATIO 32.5; CALCIUM SERUM 8.4 mg/dL (8.4-10.2); CREATININE SERUM 1.2 mg/dL (0.6-1.4); GLOM FILT RATE Estimated 51.2 mL/min (>60); POTASSIUM 4.9 mmol/L (3.5-5.1)
[2016-10-05 09:12] LABS: NUCLEATED RED BLOOD CELL 1 /100 (0); PLATELET ESTIMATE NORMAL (NORMAL)
[2016-10-05 09:13] LABS: ACANTHOCYTES PRESENT; ANISOCYTOSIS SL; SCHISTOCYTES PRESENT; SPHEROCYTE SL; TEAR DROP CELLS PRESENT; VACUOLIZATION SL
[2016-10-05 09:14] LABS: HYPOCHROMIA SL
[2016-10-07 08:24] LABS: HEMOGLOBIN 7.6 gm/dL (12.0-16.0); MEAN CELL VOLUME 88.5 FL (83-96); MEAN CORPUSCULAR HEMOGLOBIN 27.9 PG (28-34); MEAN CORPUSCULAR HGB CONC 31.5 g/dL (30-36); MEAN PLATELET VOLUME 6.7 FL (6.5-11.5); RED BLOOD COUNT 2.71 X10e (3.90-5.30); WHITE BLOOD COUNT 11.4 X10e3 (4.0-10.5)
[2016-10-07 08:40] LABS: BUN/CREATININE RATIO 27.27; CALCIUM SERUM 8.5 mg/dL (8.4-10.2); CREATININE SERUM 1.1 mg/dL (0.6-1.4); GLOM FILT RATE Estimated 56.9 mL/min (>60); POTASSIUM 4.6 mmol/L (3.5-5.1)
== END 2016-10-07 20:15 | DRG 97 ==
LOC: CED 21:28 → CEDOF 23:40 → CICCU3 09-11 01:11 → C3A PCU 09-22 17:21
PROVIDERS: Emergency Medicine; Family Medicine; Internal Medicine; Internal Medicine Cardiovascular Disease; Internal Medicine Infectious Disease; Nurse Practitioner; Nurse Practitioner Family; Psychiatry & Neurology Neurology
PROC: B325YZZ Computerized Tomography (CT Scan) of Bilateral Common Carotid Arteries using Other Contrast (ICD-10-PCS; 2016-09-10)
PROC: B32GYZZ Computerized Tomography (CT Scan) of Bilateral Vertebral Arteries using Other Contrast (ICD-10-PCS; 2016-09-10)
PROC: 0BH17EZ Insertion of Endotracheal Airway into Trachea, Via Natural or Artificial Opening (ICD-10-PCS; principal; 2016-09-11)
PROC: 5A1945Z Respiratory Ventilation, 24-96 Consecutive Hours (ICD-10-PCS; 2016-09-11)
PROC: 02HV33Z Insertion of Infusion Device into Superior Vena Cava, Percutaneous Approach (ICD-10-PCS; 2016-09-11)
PROC: 4A02X4A Measurement of Cardiac Electrical Activity, Guidance, External Approach (ICD-10-PCS; 2016-09-11)
PROC: 0D9670Z Drainage of Stomach with Drainage Device, Via Natural or Artificial Opening (ICD-10-PCS; 2016-09-11)
PROC: 30233N1 Transfusion of Nonautologous Red Blood Cells into Peripheral Vein, Percutaneous Approach (ICD-10-PCS; 2016-09-12)
PROC: B24BYZZ Ultrasonography of Heart with Aorta using Other Contrast (ICD-10-PCS; 2016-09-12)
PROC: 009U3ZX Drainage of Spinal Canal, Percutaneous Approach, Diagnostic (ICD-10-PCS; 2016-09-13)
DX: G04.90 Encephalitis and encephalomyelitis, unspecified (principal); J96.01 Acute respiratory failure with hypoxia; I21.4 Non-ST elevation (NSTEMI) myocardial infarction; G93.6 Cerebral edema; J69.0 Pneumonitis due to inhalation of food and vomit; A41.9 Sepsis, unspecified organism; M34.9 Systemic sclerosis, unspecified; I27.2 Other secondary pulmonary hypertension; J15.212 Pneumonia due to Methicillin resistant Staphylococcus aureus; F33.2 Major depressive disorder, recurrent severe without psychotic features; J44.1 Chronic obstructive pulmonary disease with (acute) exacerbation; E44.0 Moderate protein-calorie malnutrition; G40.901 Epilepsy, unspecified, not intractable, with status epilepticus; G92 Toxic encephalopathy; I10 Essential (primary) hypertension; K21.9 Gastro-esophageal reflux disease without esophagitis; I36.1 Nonrheumatic tricuspid (valve) insufficiency; E78.5 Hyperlipidemia, unspecified; I73.00 Raynaud's syndrome without gangrene; G43.909 Migraine, unspecified, not intractable, without status migrainosus; Z87.891 Personal history of nicotine dependence; Z99.81 Dependence on supplemental oxygen; Z96.642 Presence of left artificial hip joint; Z79.82 Long term (current) use of aspirin; F41.9 Anxiety disorder, unspecified; E87.6 Hypokalemia; E83.42 Hypomagnesemia; T42.4X5A Adverse effect of benzodiazepines, initial encounter; Z66 Do not resuscitate; R19.7 Diarrhea, unspecified; E87.5 Hyperkalemia; E16.2 Hypoglycemia, unspecified; Z68.24 Body mass index [BMI] 24.0-24.9, adult; D50.9 Iron deficiency anemia, unspecified
CPT/HCPCS: 36415; 36600; 51702; 70450; 70496; 70498; 70553; 71010; 72170; 74000; 80048; 80053; 80061; 80202; 81003; 82140; 82150; 82274; 82465; 82550; 82553; 82565; 82607; 82728; 82746; 82803; 82945; 82947; 83540; 83550; 83630; 83690; 83735; 83880; 84132; 84157; 84443; 84484; 85014; 85018; 85025; 85027; 85379; 85384; 85610; 85652; 85730; 86038; 86039; 86140; 86160; 86606; 86612; 86631; 86651; 86652; 86653; 86654; 86695; 86698; 86727; 86735; 86788; 86789; 86790; 86850; 86870; 86885; 86900; 86901; 86922; 87040; 87070; 87077; 87086; 87102; 87116; 87186; 87205; 87206; 87493; 87497; 87529; 87899; 88108; 89051; 92526; 92610; 93005; 93306; 93970; 93971; 94002; 94003; 94010; 94640; 94760; 94761; 95816; 96374; 96375; 97110; 97163; 97164; 97167; 97530; 97535; 99291; A9577; C9113; C9254; G8978-GP; G8979-GP; G8987-GO; G8988-GO; G8996-GN; G8997-GN; G8998-GN; J0133; J0289; J0290; J0360; J0696; J1165; J1650; J1940; J1953; J2060; J2185; J2250; J2405; J2543; J2920; J2930; J2997; J3010; J3370; J3430; J3475; J3480; J3490; P9016; P9059; Q2009; Q9967